=== PATIENT | female | born 1945 | race Caucasian/White ===

== ENCOUNTER 2020-03-01 10:52 | Emergency (ER) | payer MEDICARE, OTHER, SELFPAY ==
--- NOTE | ~2020-03-01 | XR_ITS ---
XR chest 1V portable DATE: 03/01/2020 11:28 INDICATION: Mid chest pain TECHNIQUE: Portable AP chest on 03/01/2020 at 1129 hours COMPARISON: 03/04/2015 2 view chest FINDINGS: Normal heart size. No hilar or mediastinal enlargement. No pulmonary infiltrate or consol idation, pulmonary vascular congestion or pleural effusion or pneumothorax. Diffuse idiopathic skeletal hyperostosis. IMPRESSION: No active cardiopulmonary disease Reviewed, dictated and finalized at location [facility].
[2020-03-01 10:58] VITALS: BP 148/70; PULSE 62; RESP 20; TEMP 36.7; O2SAT 96
[2020-03-01 11:06] VITALS: PULSE 86
--- NOTE | 2020-03-01 11:15 | PC.NURSE ---
Introduced to patient and bedside report received from off-going RN.
[2020-03-01 11:17] LABS: Basophils Percent Auto 0.6 % (0.2-1.2); Eosinophils Percent Auto 0.3 % (0-4.4); Hematocrit 40.8 % (37.0-47.0); Hemoglobin 13.6 g/dL (12.0-15.0); Immature Granulocyte Absolute 0.01 K/mm3 (0.00-0.031); Immature Granulocyte Percent A 0.3 % (0-0.5); Lymphocytes Absolute Auto 1.33 K/mm3 (0.9-3.2); Mean Corpuscular HGB Conc 33.3 g/dl (32-36); Mean Corpuscular Hemoglobin 29.1 pg (26-34); Mean Corpuscular Volume 87.4 fl (80-100); Mean Platelet Volume 8.4 fl (7.4-10.4); Monocytes Absolute Auto 0.3 K/mm3 (0.1-0.6); Neutrophils Absolute Auto 1.9 K/mm3 (1.3-6.7); Neutrophils Percent Auto 52.8 % (45.5-73.1); Platelet Count Result 166 k/mm3 (150-375); Red Blood Count 4.67 M/mm3 (4.2-5.4); Red Cell Distribution Width 13.2 % (11.5-14.5); White Blood Count 3.5 K/mm3 (4.5-10.0)
--- NOTE | 2020-03-01 11:20 | ECG_ITS ---
Measurements Intervals [place] Rate: 63 P: 24 [place]: 140 QRS: -11 QRSD: 101 T: 52 QT: 412 QTc: 425 Interpretive Statements SINUS RHYTHM WITH MARKED SINUS ARRHYTHMIA BASELINE WANDER- I, AVR, AVL, AVF NORMAL ECG Electronically Signed On 03-01-2020 11:21:44 CDT by Eladio Gates D.O.
[2020-03-01 11:27] VITALS: BP 147/69; PULSE 64; RESP 20; O2SAT 98
[2020-03-01 11:31] LABS: Alanine Aminotransferase 24 U/L (4-35); Albumin Level 4.7 g/dL (3.5-5.1); Alkaline Phosphatase 100 U/L (38-126); Aspartate Amino Transferase 41 U/L (14-36); Bilirubin,Total 0.6 mg/dL (0.2-1.3); Blood Urea Nitrogen 13 mg/dL (7-17); Calcium 9.6 mg/dL (8.4-10.2); Carbon Dioxide 27 mmol/L (22-30); Chloride 104 mmol/L (98-107); Estimated CRCL calculation 64 ml/min; Estimated Glomerular Filt Rate > 60; Glucose 120 mg/dL (65-105); INR 1.1; Lipase 90 U/L (23-300); Partial Thromboplastin Time 29.7 SECONDS (22.3-36.8); Potassium 3.9 mmol/L (3.4-5.0); Prothrombin Time 13.5 Seconds (11.1-14.7); Sodium 139 mmol/L (137-145)
[2020-03-01 11:43] LABS: NT Pro B Type Natriuretic Pept 40 PG/ML (5-100); Troponin I < 0.012 ng/mL (0.000-0.034)
--- NOTE | 2020-03-01 11:53 | ED.CHESTPAIN ---
HPI - Chest Pain General Chief Complaint: Chest Pain Stated Complaint: CHEST/SHOULDER PAIN Time Seen by Provider: 03/01/20 11:00 Source: patient and family Mode of arrival: ambulatory Limitations: no limitations History of Present Illness HPI narrative: Patient is a 74-year-old female who presents to emergency department noting that she had a small twinge of chest pain yesterday evening lasted seconds and resolves was located to the left of the sternum patient denies similar occurrence in the past has not had anything pain landry today denies similar occurrence in the past or any cardiopulmonary disease. Patient denies URI symptoms or other complaints and on arrival is resting comfortably in the room in no distress Related Data Home Medications Medication Instructions Recorded Confirmed cholecalciferol (vitamin D3) 50 mcg PO DAILY 03/01/20 [Vitamin D3] metronidazole 1 TOPICAL BID 03/01/20 Allergies Allergy/AdvReac Type Severity Reaction Status Date / Time NSAIDS (Non-Steroidal Allergy Unknown STOMACH Verified 02/15/19 17:23 Anti-Inflamma UPSET FORMALDHYDE Allergy Mild Rash Uncoded 03/01/20 11:07 FIBERGLASS Allergy Unknown Rash Uncoded 03/01/20 11:07 Review of Systems Review of Systems: All systems reviewed & are unremarkable except as noted in HPI and below PMFSH Family History Family History (Updated 10/10/18 @ 11:15 by DOCTOR UNKNOWN) Mother Hypertension Acute myocardial infarction Father Family history of lung cancer Family history of emphysema Family history of malignant neoplasm of brain Sibling Family history of transient ischemic attacks Family history of cardiovascular disease Cerebrovascular accident Malignant neoplasm of prostate Family history of malignant neoplasm of urinary bladder Other Family history of atrial fibrillation Family history of chronic obstructive pulmonary disease Social History Social History Smoking status: Never smoker Second hand tobacco smoke exposure: No Alcohol intake: never Gender identity (if verbalized by the patient): Female Exam Narrative: Exam Narrative: GENERAL: Well-appearing, well-nourished, and in no acute distress. HEAD: Normocephalic, atraumatic. EYES: PERRLA and EOMI. ENT: Nares clear, no rhinorrhea or epistaxis. Mucous membranes moist. CHEST: Clear to auscultation. No respiratory distress. No wheezes rales or rhonchi HEART: Regular rate and rhythm. No murmur heard. Normal peripheral pulses. ABDOMEN: Soft, nontender, nondistended EXTREMITIES: Normal range of motion. No edema. SKIN: Warm, dry, no rash. NEURO: No focal deficits. Alert and oriented x3. Cranial nerves II through XII grossly intact PSYCH: Normal mood and affect. Course Course Emergency Course: Patient in the room in no distress aware of case findings treatment plan and diagnosis as well as discussion and recommendations of cardiology Consultations Consultation #1: Discussed case with cardiology who notes that if the patient has a second negative troponin that she can go home and they will follow with her in clinic and help plan follow-up for cardiology follow-up and is felt that the patient can be discharged safely Date: 03/01/20 Time: 15:17 Vital Signs Vital signs: Vital Signs Temperature 98.1 F 03/01/20 10:58 Pulse Rate 62 03/01/20 10:58 Respiratory Rate 20 03/01/20 10:58 Blood Pressure 148/70 H 03/01/20 10:58 Pulse Oximetry 96 03/01/20 10:58 Temperature 98.5 F 03/01/20 14:33 Pulse Rate 60 03/01/20 14:33 Respiratory Rate 12 03/01/20 14:33 Blood Pressure 117/68 03/01/20 14:33 Pulse Oximetry 99 03/01/20 14:33 MDM - Chest Pain MDM Narrative Medical decision making narrative: Paitents EKGs and labs are without significant high risk changes. Cardiac risk facotrs were reviewd. Patient is felt likely to be low risk for ACS and resonable for further risk stratific
[2020-03-01 11:58] LABS: Add Urine Microscopic? NO; Appearance Urine Clear (Clear); Bilirubin Urine Negative (Negative); Blood Urine Negative (Negative); Color Urine Straw (Yellow); Glucose Urine UA Negative (Negative); Ketones Urine Negative (Negative); Leukocyte Esterase Ur Negative LEU/UL (Negative); Nitrate Urine Negative (Negative); Protein Urine Negative (Negative); Specific Grav Ur 1.009 (1.001-1.035); Urobilinogen Urine Negative mg/dL (<2.0)
[2020-03-01 13:52] VITALS: BP 117/73; PULSE 63; RESP 15; O2SAT 99
[2020-03-01 14:33] VITALS: BP 117/68; PULSE 60; RESP 12; TEMP 36.9; O2SAT 99
--- NOTE | 2020-03-01 14:39 | PC.NURSE ---
Patient reports gastric ulcers and that she does not take NSAIDS or aspirin
[2020-03-01 14:45] LABS: Troponin I < 0.012 ng/mL (0.000-0.034)
[2020-03-01 15:31] VITALS: BP 124/72; PULSE 60; RESP 16; TEMP 36; O2SAT 98
== END 2020-03-01 15:32 | disposition home or self-care (01) ==
PROVIDERS: Emergency Medicine Emergency Medical Services; Emergency Provider Emergency Medicine; PCP Family Medicine
DX: R07.9 Chest pain, unspecified (principal)
CPT/HCPCS: 36415; 71045; 80053; 81003; 83690; 83880; 84484; 85025; 85610; 85730; 93005; 99284

== ENCOUNTER 2020-03-05 00:39 | Emergency (ER) | payer MEDICARE, OTHER, SELFPAY ==
[2020-03-05 00:46] VITALS: BP 166/60; PULSE 60; RESP 16; TEMP 36.2; O2SAT 100
--- NOTE | 2020-03-05 00:53 | ECG_ITS ---
Measurements Intervals [place] Rate: 54 P: 16 [place]: 156 QRS: -6 QRSD: 101 T: 22 QT: 407 QTc: 389 Interpretive Statements SINUS BRADYCARDIA WITH SINUS ARRHYTHMIA BASELINE ARTIFACT- V5 BORDERLINE ECG Electronically Signed On 03-05-2020 7:08:52 CDT by Eladio Gates D.O.
[2020-03-05] MEDS: KETOROLAC 30 MG/ML VIAL (*BKC) IV PUSH (01:42)
[2020-03-05 01:51] VITALS: BP 161/89; PULSE 55; RESP 19; O2SAT 97
--- NOTE | 2020-03-05 02:38 | ED.GENADULT ---
HPI - General Adult General Chief complaint: Weakness Stated complaint: left arm pain/shoulder,weak,nauseated Time Seen by Provider: 03/05/20 00:48 History of Present Illness HPI narrative: Patient is a 74-year-old female who presents the ER with left arm and neck pain. Symptoms began this evening. Cramping and aching in nature. Some radiation into the left proximal arm. No chest pain or dyspnea. Patient had similar symptoms earlier in the week and was evaluated and had 2- troponins and was discharged home. At that time she had had some fasciculations in her chest with some chest discomfort. Tonight she reports she is just having trouble getting comfortable going to sleep and felt weak so thought she would seek further evaluation. She is supposed to follow-up with her doctor and potentially get an outpatient stress test. Patient has been taking a baby aspirin. No known injury. Related Data Home Medications Medication Instructions Recorded Confirmed cholecalciferol (vitamin D3) 50 mcg PO DAILY 03/01/20 [Vitamin D3] metronidazole 1 TOPICAL BID 03/01/20 Allergies Allergy/AdvReac Type Severity Reaction Status Date / Time NSAIDS (Non-Steroidal Allergy Unknown STOMACH Verified 03/05/20 00:50 Anti-Inflamma UPSET FORMALDHYDE Allergy Mild Rash Uncoded 03/05/20 00:50 FIBERGLASS Allergy Unknown Rash Uncoded 03/05/20 00:50 Review of Systems Review of Systems: All systems reviewed & are unremarkable except as noted in HPI and below Constitutional: Constitutional: Denies chills, Reports fatigue and Denies fever(s) ENT: Denies nasal congestion and Denies sore throat Cardiovascular: Cardiovascular: Denies chest pain and Denies radiating jaw, neck or arm pain Respiratory: Respiratory: Denies cough, Denies dyspnea and Denies wheezing Gastrointestinal: Gastrointestinal: Denies abdominal pain, Denies nausea and Denies vomiting Musculoskeletal: Musculoskeletal: Reports back pain PMFSH Past Medical History Medical History (Updated 03/05/20 @ 02:48 by Remy Londono MD) Diverticulitis DVT (deep venous thrombosis) GERD (gastroesophageal reflux disease) Hypertension Obstructive sleep apnea Surgical History Surgical History (Updated 03/05/20 @ 02:43 by Remy Londono MD) H/O knee surgery History of back surgery History of tubal ligation Family History Family History (Updated 10/10/18 @ 11:15 by DOCTOR UNKNOWN) Mother Hypertension Acute myocardial infarction Father Family history of lung cancer Family history of emphysema Family history of malignant neoplasm of brain Sibling Family history of transient ischemic attacks Family history of cardiovascular disease Cerebrovascular accident Malignant neoplasm of prostate Family history of malignant neoplasm of urinary bladder Other Family history of atrial fibrillation Family history of chronic obstructive pulmonary disease Social History Social History Smoking status: Never smoker Second hand tobacco smoke exposure: No Alcohol intake: never Gender identity (if verbalized by the patient): Female Exam Narrative: Exam Narrative: GENERAL: Well-appearing, well-nourished, and in no acute distress. HEAD: Normocephalic, atraumatic. ENT: Mucous membranes moist. CHEST: Clear to auscultation. No respiratory distress. HEART: Bradycardic and regular. Normal peripheral pulses. EXTREMITIES: Normal range of motion. No edema. Back: Tender palpation over the paraspinal musculature of the neck going into the trapezius muscles as well as the rhomboid muscle on the left. No palpable spasm. No midline tenderness. NEURO: Alert and oriented x3. Course Course Emergency Course: Significantly tender on exam which reproduces the patient's reported pain. Toradol has improved this significantly. Discharge home recommend continue follow-up with PCP. No chest pain today and this does not
[2020-03-05 02:46] VITALS: BP 117/78; PULSE 52; RESP 19; O2SAT 100
[2020-03-05 02:54] VITALS: BP 117/78; PULSE 55; RESP 19; TEMP 37.2; O2SAT 100
== END 2020-03-05 02:56 | disposition home or self-care (01) ==
PROVIDERS: Emergency Provider Emergency Medicine; PCP Family Medicine
DX: S16.1XXA Strain of muscle, fascia and tendon at neck level, initial encounter (principal); Z86.718 Personal history of other venous thrombosis and embolism; K21.9 Gastro-esophageal reflux disease without esophagitis; G47.33 Obstructive sleep apnea (adult) (pediatric); R00.1 Bradycardia, unspecified; Z79.82 Long term (current) use of aspirin; X58.XXXA Exposure to other specified factors, initial encounter
CPT/HCPCS: 93005; 96374; 99284; J1885

== ENCOUNTER 2020-03-19 06:57 | Outpatient (CLI) | payer MEDICARE, OTHER, SELFPAY ==
[2020-03-19 07:47] LABS: Blood Urea Nitrogen 19 mg/dL (7-17); Calcium 9.4 mg/dL (8.4-10.2); Carbon Dioxide 29 mmol/L (22-30); Chloride 102 mmol/L (98-107); Estimated Glomerular Filt Rate > 60; Glucose 91 mg/dL (65-105); Sodium 138 mmol/L (137-145)
== END 2020-03-19 06:58 | disposition home or self-care (01) ==
PROVIDERS: PCP Family Medicine; Visit Provider Internal Medicine Cardiovascular Disease
DX: I49.9 Cardiac arrhythmia, unspecified (principal)
CPT/HCPCS: 36415; 80048

== ENCOUNTER 2020-03-27 06:54 | Outpatient (CLI) | payer MEDICARE, OTHER, SELFPAY ==
[2020-03-27 08:06] LABS: Cholesterol 155 mg/dL (0-200); HDL Direct 29 mg/dL; Triglycerides 185 mg/dL (<150)
[2020-03-27 08:12] LABS: LDL Cholesterol Direct 82 mg/dL
== END 2020-03-27 06:55 | disposition home or self-care (01) ==
PROVIDERS: PCP Family Medicine; Visit Provider Family Medicine
DX: E78.5 Hyperlipidemia, unspecified (principal)
CPT/HCPCS: 36415; 80061

== ENCOUNTER 2020-04-09 15:03 | Outpatient (CLI) | payer MEDICARE, OTHER, SELFPAY ==
--- NOTE | ~2020-04-09 | MM_ITS ---
EXAMINATION: MM screening [facility] BI w [facility]phra[facility] HISTORY: Screening mammogram TECHNIQUE: Craniocaudal and mediolateral oblique 3-D tomosynthesis images were obtained and synthetic 2-D images were generated. CAD analysis was submitted and interpreted. COMPARISON: 01/16/2019, 12/13/2017, 12/04/2016 BREAST PARENCHYMAL COMPOSITION: There are scattered areas of fibroglandular density. FINDINGS: Scattered benign-appearing calcifications are present. There is also stable asymmetry in th e posterior third of the right breast on the craniocaudal view. There is no evidence of suspicious ma ss, calcification, or architectural distortion to suggest malignancy in either breast. There has been no suspicious interval change. IMPRESSION: 1. No mammographic evidence of malignancy. 2. Recommend routine screening mammography in one year. BI-RADS Category 2: Benign finding(s). Reviewed, dictated and finalized at location A.
== END 2020-04-09 15:04 | disposition home or self-care (01) ==
LOC: ANHIMG 15:05
PROVIDERS: PCP Family Medicine; Visit Provider Nurse Practitioner Obstetrics & Gynecology
DX: Z12.31 Encounter for screening mammogram for malignant neoplasm of breast (principal)
CPT/HCPCS: 77063; 77067

== ENCOUNTER 2020-05-23 08:35 | Outpatient (CLI) | payer MEDICARE, OTHER, SELFPAY ==
--- NOTE | ~2020-05-23 | US_ITS ---
EXAMINATION: US right upper quadrant DATE: 05/23/2020 09:36 INDICATION: Epigastric pain TECHNIQUE: Multiple grayscale and Doppler ultrasound images of the abdomen were obtained. COMPARISON: 11/14/2010 FINDINGS: The pancreas is normal. The visualized proximal inferior vena cava is normal. Liver has normal echoge nicity and contour, with a smooth surface. No liver lesion identified. No intrahepatic biliary duct d ilation suspected. Portal venous flow was seen in the hepatopetal, normal direction and has normal Do ppler waveform. The gallbladder is normal in appearance. Small amount of mobile hypoechoic material w ith regions of shadowing suggesting combination of sludge and tiny gallstones. The common bile duct m easures 4 mm, which is normal. Sonographic Wilson sign was reported as negative by the web applications administrator. IMPRESSION: 1. Small amount of sludge and tiny gallstones within the otherwise normal-appearing gallbladder. No s onographic Wilson's sign to suggest acute cholecystitis or biliary ductal dilation. Reviewed, dictated and finalized at location A. IMPRESSION: 1. Small amount of sludge and tiny gallstones within the otherwise normal-appea ring gallbladder. No sonographic Wilson's sign to suggest acute cholecystitis o r biliary ductal dilation.
== END 2020-05-23 08:36 | disposition home or self-care (01) ==
PROVIDERS: PCP Family Medicine; Visit Provider Internal Medicine Gastroenterology
DX: K21.9 Gastro-esophageal reflux disease without esophagitis (principal); R10.13 Epigastric pain
CPT/HCPCS: 76705

== ENCOUNTER 2020-06-01 01:03 | Outpatient (CLI) | payer MEDICARE, OTHER, SELFPAY ==
[2020-06-01 18:13] LABS: SARS-CoV-2 RNA PCR Negative
== END 2020-06-01 01:04 | disposition home or self-care (01) ==
LOC: ANHCOVIDDT 01:04
PROVIDERS: PCP Family Medicine; Visit Provider Internal Medicine Gastroenterology
DX: Z01.812 Encounter for preprocedural laboratory examination (principal); Z20.828 Contact with and (suspected) exposure to other viral communicable diseases
CPT/HCPCS: 87635; C9803; U0003

== ENCOUNTER 2020-06-04 01:26 | Day surgery (SDC) | payer MEDICARE, OTHER, SELFPAY ==
[2020-05-22 15:17] VITALS: BMI 28.3
[2020-06-04 09:50] VITALS: BP 149/68; PULSE 57; RESP 18; TEMP 36.7; O2SAT 99
--- NOTE | 2020-06-04 09:59 | WPDANESEPPF ---
Anes - Initial Pre Proc Eval Procedure: Operation Date: 06/04/20 10:45 Proposed Procedures p Esophagogastroduodenoscopy - Pérez Carson MD Date/Time: 06/04/20 09:59 Surgeon: Pérez Carson MD Pre Op Diagnosis: GERD/ Epigastric Pain Patient Data Age: 74 Gender: F Height: 1.65 m Weight: 76.5 kg Last Vital Signs Temp 36.7 C 06/04/20 09:50 Pulse 57 L 06/04/20 09:50 Resp 18 06/04/20 09:50 BP 149/68 H 06/04/20 09:50 Pulse Ox 99 06/04/20 09:50 Allergies Allergy/AdvReac Type Severity Reaction Status Date / Time NSAIDS (Non-Steroidal Allergy Unknown STOMACH Verified 06/04/20 09:49 Anti-Inflamma UPSET FORMALDHYDE Allergy Mild Rash Uncoded 06/04/20 09:49 FIBERGLASS Allergy Unknown Rash Uncoded 06/04/20 09:49 Home Medications Medication Instructions Recorded Confirmed Type aspirin [Aspirin Low Dose] 81 mg PO DAILY #30 tablet 03/01/20 05/22/20 Rx cholecalciferol (vitamin D3) 1,000 unit PO DAILY 03/01/20 05/22/20 History [Vitamin D3] metronidazole 0.75 % topical cream 1 applic TOPICAL BID #45 gm 03/25/20 05/22/20 Rx rabeprazole 20 mg tablet,delayed 20 mg PO BID #180 tablet 03/25/20 05/22/20 Rx release cyclosporine 0.05 % eye drops in a 1 drop EACH EYE Q12H #180 each 04/03/20 05/22/20 Rx dropperette gemfibrozil 600 mg tablet 600 mg PO BID #180 tablet 04/03/20 05/22/20 Rx losartan 100 mg tablet 100 mg PO DAILY #90 tablet 04/03/20 05/22/20 Rx atorvastatin 10 mg PO DAILY 05/22/20 05/22/20 History Patient hx anesthesia problems: none Family hx anesthesia problems: none PMFSH Past Medical History Medical History (Updated 06/04/20 @ 10:02 by Leighton Nance MD) Colon, diverticulosis Diverticulitis DVT (deep venous thrombosis) Epigastric pain GERD (gastroesophageal reflux disease) Hypercholesterolemia Hypertension Obstructive sleep apnea CPAP 6 Overweight (BMI 25.0-29.9) Surgical History Surgical History (Updated 03/05/20 @ 02:43 by Remy Londono MD) H/O knee surgery History of back surgery History of tubal ligation Family History Family History (Updated 10/10/18 @ 11:15 by DOCTOR UNKNOWN) Mother Hypertension Acute myocardial infarction Father Family history of lung cancer Family history of emphysema Family history of malignant neoplasm of brain Sibling Family history of transient ischemic attacks Family history of cardiovascular disease Cerebrovascular accident Malignant neoplasm of prostate Family history of malignant neoplasm of urinary bladder Other Family history of atrial fibrillation Family history of chronic obstructive pulmonary disease Social History Social History Smoking status: Never smoker Second hand tobacco smoke exposure: No Alcohol intake: never Gender identity (if verbalized by the patient): Female Anes - Eval Final PreProcedure Day of Procedure 06/04/20 09:59 Patient weight: obese Heart: regular rate and rhythm Lungs: clear to auscultation and normal air movement Airway: Mallampati scale class II Neurological: alert and oriented Last oral intake: >/= 8 hours ASA classification: III Emergent: no Anesthetic plan: proceed Anesthesia type and monitoring: general GIVS Informed Consent: The patient's anesthetic plan and its attendant risks and benefits were discussed with the patient/family/POA. Questions were solicited and answers provided to the satisfaction of the patient/family/POA.
[2020-06-04] MEDS: LACTATED RINGERS 1,000 ML 150 ML IV CONT (10:04)
--- NOTE | 2020-06-04 10:49 | PM.HPGS ---
History of Present Illness History of Present Illness Consent: Risks, benefits, and alternatives have been discussed and questions answered. Patient agrees to proceed with procedure. Chief complaint: GERD/ Epigastric Pain Narrative: Melodie Zamora is a 74 year old female gerd better with aciphex bid Review of Systems Constitutional: Constitutional: Denies headache(s) and Denies weakness Eyes: Eyes: Denies blurry vision ENT: Reports Normal hearing present, Denies headache(s) and Denies neck pain Cardiovascular: Cardiovascular: Denies chest pain and Denies dyspnea Respiratory: Respiratory: Denies dyspnea Gastrointestinal: Gastrointestinal: Reports no additional gastrointestinal complaints Genitourinary: Genitourinary: Denies dysuria Musculoskeletal: Musculoskeletal: Denies neck pain Integumentary/Breasts: Skin/Breast: Denies dry skin Neurologic: Reports Normal hearing present, Denies headache(s) and Denies weakness Psychiatric: Psychiatric: Denies anxiety Endocrine: Endocrine: Denies change in body appearance Hematologic/Lymphatic: Hematologic/Lymphatic: Denies easy bleeding Allergic/Immunologic: Allergic/Immunologic: Denies urticaria PMFSH Past Medical History Medical History (Updated 06/04/20 @ 10:49 by Pérez Carson MD) Colon, diverticulosis Diverticulitis DVT (deep venous thrombosis) Epigastric pain GERD (gastroesophageal reflux disease) Hypercholesterolemia Hypertension Obstructive sleep apnea CPAP 6 Overweight (BMI 25.0-29.9) Surgical History Surgical History (Updated 03/05/20 @ 02:43 by Remy Londono MD) H/O knee surgery History of back surgery History of tubal ligation Family History Family History (Updated 10/10/18 @ 11:15 by DOCTOR UNKNOWN) Mother Hypertension Acute myocardial infarction Father Family history of lung cancer Family history of emphysema Family history of malignant neoplasm of brain Sibling Family history of transient ischemic attacks Family history of cardiovascular disease Cerebrovascular accident Malignant neoplasm of prostate Family history of malignant neoplasm of urinary bladder Other Family history of atrial fibrillation Family history of chronic obstructive pulmonary disease Social History Social History Smoking status: Never smoker Second hand tobacco smoke exposure: No Alcohol intake: never Gender identity (if verbalized by the patient): Female Meds Home Medications and Allergies Home Medications Medication Instructions Recorded Confirmed Type aspirin [Aspirin Low Dose] 81 mg PO DAILY #30 tablet 03/01/20 06/04/20 Rx cholecalciferol (vitamin D3) 1,000 unit PO DAILY 03/01/20 06/04/20 History [Vitamin D3] metronidazole 0.75 % topical cream 1 applic TOPICAL BID #45 gm 03/25/20 06/04/20 Rx rabeprazole 20 mg tablet,delayed 20 mg PO BID #180 tablet 03/25/20 06/04/20 Rx release cyclosporine 0.05 % eye drops in a 1 drop EACH EYE Q12H #180 each 04/03/20 06/04/20 Rx dropperette gemfibrozil 600 mg tablet 600 mg PO BID #180 tablet 04/03/20 06/04/20 Rx losartan 100 mg tablet 100 mg PO DAILY #90 tablet 04/03/20 06/04/20 Rx atorvastatin 10 mg PO DAILY 05/22/20 06/04/20 History Allergies Allergy/AdvReac Type Severity Reaction Status Date / Time NSAIDS (Non-Steroidal Allergy Unknown STOMACH Verified 06/04/20 09:49 Anti-Inflamma UPSET FORMALDHYDE Allergy Mild Rash Uncoded 06/04/20 09:49 FIBERGLASS Allergy Unknown Rash Uncoded 06/04/20 09:49 Vital Signs Vital Signs - 24 hr 06/04/20 09:50 Temperature 98.1 F Pulse Rate 57 L Respiratory Rate 18 Blood Pressure 149/68 H Pulse Oximetry 99 Exam Const: General: comfortable and no acute distress HENMT: General nose exam: Normal nares present Eyes: General: appearance normal, both eyes and all related structures Neck: Neck: no JVD Resp: Auscultation: clear to auscultation
[2020-06-04 11:13] VITALS: BP 125/77; PULSE 59; RESP 21; O2SAT 100
[2020-06-04 11:23] VITALS: BP 118/70; PULSE 55; RESP 14; O2SAT 99
[2020-06-04 11:33] VITALS: BP 128/73; PULSE 55; RESP 14; O2SAT 98
== END 2020-06-04 11:50 | disposition home or self-care (01) ==
PROVIDERS: PCP Family Medicine; Visit Provider Internal Medicine Gastroenterology
PROC: 0DJ08ZZ Inspection of Upper Intestinal Tract, Via Natural or Artificial Opening Endoscopic (ICD-10-PCS; CPT 43235; principal; 2020-06-04 10:45)
DX: K29.50 Unspecified chronic gastritis without bleeding (principal); K21.0 Gastro-esophageal reflux disease with esophagitis; I10 Essential (primary) hypertension; E78.5 Hyperlipidemia, unspecified; G47.33 Obstructive sleep apnea (adult) (pediatric); E66.3 Overweight; Z68.28 Body mass index [BMI] 28.0-28.9, adult; Z86.718 Personal history of other venous thrombosis and embolism; Z79.82 Long term (current) use of aspirin; Z79.899 Other long term (current) drug therapy
CPT/HCPCS: 43239; 88305; 88313; J2704; J7120

== ENCOUNTER 2020-07-22 10:25 | Emergency (ER) | payer MEDICARE, OTHER, SELFPAY ==
--- NOTE | ~2020-07-22 | US_ITS ---
US venous doppler LE RT DATE: 07/22/2020 11:08 INDICATION: Calf pain TECHNIQUE: Real-time and color flow imaging and Doppler analysis of the right leg COMPARISON: 10/06/2016 is duplex examination of the right leg FINDINGS: The greater saphenous vein is patent. There is spontaneous and phasic flow and normal augme ntation and color flow signal and normal compression of the deep veins of the right leg IMPRESSION: No evidence of deep venous thrombosis of right lower extremity Reviewed, dictated and finalized at [facility]. Reviewed, dictated and finalized at location A.
[2020-07-22 10:28] VITALS: BP 110/50; PULSE 66; RESP 16; TEMP 36.3; O2SAT 100
--- NOTE | 2020-07-22 11:14 | PC.NURSE ---
patient brought back to ED room 19 with c/o calf pain. see triage notes. no change in condition since triage completed. resting on stretcher. changed into gown. warm blanket given. call light in reach. had venous doppler done already.
--- NOTE | 2020-07-22 11:20 | ED.EXTPRO ---
HPI - Extremity Problem General Chief complaint: Extremity Problem,Nontraumatic Stated complaint: R calf pain Time Seen by Provider: 07/22/20 11:12 History of Present Illness HPI Narrative: Patient is a 74-year-old female who presents ER with a painful nodule to the posterior aspect of her right calf. Developed it yesterday. Tender to touch. No redness or fever. No chest pain or shortness of breath. No known trauma. Sent by PCP for DVT rule out due to previous history of blood clots. She is not on blood thinners. She does report she is recently returned to water aerobics in the last 2 weeks but does not remember injuring herself there. Related Data Home Medications Medication Instructions Recorded Confirmed cholecalciferol (vitamin D3) 1,000 unit PO DAILY 03/01/20 06/04/20 [Vitamin D3] atorvastatin 10 mg PO DAILY 05/22/20 06/04/20 Allergies Allergy/AdvReac Type Severity Reaction Status Date / Time NSAIDS (Non-Steroidal Allergy Unknown STOMACH Verified 06/04/20 09:49 Anti-Inflamma UPSET FORMALDHYDE Allergy Mild Rash Uncoded 06/04/20 09:49 FIBERGLASS Allergy Unknown Rash Uncoded 06/04/20 09:49 Review of Systems Constitutional: Constitutional: Denies chills, Denies fever(s) and Denies weakness Cardiovascular: Cardiovascular: Denies chest pain and Denies dyspnea Musculoskeletal: Comments: Right calf pain with tender nodule. No edema. [facility] Past Medical History Medical History (Updated 07/22/20 @ 11:25 by Remy Londono MD) Colon, diverticulosis Diverticulitis DVT (deep venous thrombosis) Epigastric pain GERD (gastroesophageal reflux disease) Hypercholesterolemia Hypertension Obstructive sleep apnea CPAP 6 Overweight (BMI 25.0-29.9) Surgical History Surgical History (Updated 03/05/20 @ 02:43 by Remy Londono MD) H/O knee surgery History of back surgery History of tubal ligation Family History Family History (Updated 10/10/18 @ 11:15 by DOCTOR UNKNOWN) Mother Hypertension Acute myocardial infarction Father Family history of lung cancer Family history of emphysema Family history of malignant neoplasm of brain Sibling Family history of transient ischemic attacks Family history of cardiovascular disease Cerebrovascular accident Malignant neoplasm of prostate Family history of malignant neoplasm of urinary bladder Other Family history of atrial fibrillation Family history of chronic obstructive pulmonary disease Social History Social History Smoking status: Never smoker Second hand tobacco smoke exposure: No Alcohol intake: never Gender identity (if verbalized by the patient): Female Exam Narrative: Exam Narrative: GENERAL: Well-appearing, well-nourished, and in no acute distress. HEAD: Normocephalic, atraumatic. EXTREMITIES: Normal range of motion. No edema. Tender nodule right posterior calf lateral aspect only slightly larger than a pea. Overlying bruising noted. SKIN: Warm, dry, no rash. Evidence of cellulitis. NEURO: Alert and oriented x3. PSYCH: Normal mood and affect. Course Course Emergency Course: Informed of results. Discharge home. Recommend heat and Tylenol as well as stretching. Vital Signs Vital signs: Vital Signs Temperature 97.4 F L 07/22/20 10:28 Pulse Rate 66 07/22/20 10:28 Respiratory Rate 16 07/22/20 10:28 Blood Pressure 110/50 L 07/22/20 10:28 Pulse Oximetry 100 07/22/20 10:28 Temperature 97.4 F L 07/22/20 10:28 Pulse Rate 66 07/22/20 10:28 Respiratory Rate 16 07/22/20 10:28 Blood Pressure 110/50 L 07/22/20 10:28 Pulse Oximetry 100 07/22/20 10:28 MDM - Extremity (Nontraumatic) Imaging Data Radiologist's impression: ITS Impressions Venous Doppler Study 07/22/20 11:09 IMPRESSION: No evidence of deep venous thrombosis of right lower extremity Discharge Plan Discharge Clinical Impression: Hematom
[2020-07-22 11:50] VITALS: BP 136/78; PULSE 78; O2SAT 100
--- NOTE | 2020-07-22 11:55 | PC.NURSE ---
patient resting on stretcher. in room. ready for discharge. understands results per MD.
== END 2020-07-22 11:52 | disposition home or self-care (01) ==
PROVIDERS: Emergency Provider Emergency Medicine; PCP Family Medicine
DX: S80.11XA Contusion of right lower leg, initial encounter (principal); Z86.718 Personal history of other venous thrombosis and embolism; K21.9 Gastro-esophageal reflux disease without esophagitis; E78.00 Pure hypercholesterolemia, unspecified; I10 Essential (primary) hypertension; G47.33 Obstructive sleep apnea (adult) (pediatric); E66.3 Overweight; Z68.28 Body mass index [BMI] 28.0-28.9, adult; X58.XXXA Exposure to other specified factors, initial encounter
CPT/HCPCS: 93971; 99284

== ENCOUNTER 2021-04-08 07:07 | Outpatient (CLI) | payer MEDICARE, OTHER, SELFPAY ==
[2021-04-08 08:01] LABS: Hematocrit 39.4 % (37.0-47.0); Mean Corpuscular Hemoglobin 28.7 pg (26-34); Mean Platelet Volume 8.5 fl (7.4-10.4); Platelet Count Result 143 k/mm3 (150-375); Red Blood Count 4.53 M/mm3 (4.2-5.4); Red Cell Distribution Width 13.4 % (11.5-14.5); White Blood Count 3.4 K/mm3 (4.5-10.0)
[2021-04-08 08:13] LABS: Alanine Aminotransferase 24 U/L (4-35); Albumin Level 4.5 g/dL (3.5-5.1); Alkaline Phosphatase 99 U/L (38-126); Anion Gap 8 mmol/L (8-16); Aspartate Amino Transferase 38 U/L (14-36); Bilirubin,Total 0.6 mg/dL (0.2-1.3); Blood Urea Nitrogen 13 mg/dL (7-17); Calcium 9.8 mg/dL (8.4-10.2); Carbon Dioxide 31 mmol/L (22-30); Chloride 103 mmol/L (98-107); Cholesterol 129 mg/dL (0-200); Estimated Glomerular Filt Rate > 60; Glucose 91 mg/dL (65-105); HDL Direct 35 mg/dL; Potassium 4.4 mmol/L (3.4-5.0); Sodium 142 mmol/L (137-145); Triglycerides 189 mg/dL (<150)
[2021-04-08 08:25] LABS: LDL Cholesterol Direct 56 mg/dL
[2021-04-08 09:20] LABS: Vitamin D 25 Hydroxy 47.8 ng/mL
== END 2021-04-08 07:08 | disposition home or self-care (01) ==
PROVIDERS: PCP Family Medicine; Visit Provider Family Medicine
DX: E78.2 Mixed hyperlipidemia (principal); E55.9 Vitamin D deficiency, unspecified; E78.00 Pure hypercholesterolemia, unspecified; R53.83 Other fatigue; I10 Essential (primary) hypertension
CPT/HCPCS: 36415; 80053; 80061; 82306; 84443; 85027

== ENCOUNTER → 2021-04-11 09:51 | Outpatient (CLI) | payer MEDICARE, OTHER, SELFPAY ==
--- NOTE | ~2021-04-11 | MM_ITS ---
EXAMINATION: MM screening [facility] BI w ephraim HISTORY: Screening mammogram TECHNIQUE: Craniocaudal and mediolateral oblique 3-D tomosynthesis images were obtained and synthetic 2-D images were generated. CAD analysis was submitted and interpreted. COMPARISON: 04/09/2020, 01/16/2019, 12/13/2017 BREAST PARENCHYMAL COMPOSITION: There are scattered areas of fibroglandular density. FINDINGS: Again noted is chronic, stable asymmetry in the posterior third of the right breast on the craniocaudal view. There is no evidence of suspicious mass, calcification, or architectural distortio n to suggest malignancy in either breast. There has been no suspicious interval change. IMPRESSION: 1. No mammographic evidence of malignancy. 2. Recommend routine screening mammography in one year. BI-RADS Category 2: Benign finding(s). Reviewed, dictated and finalized at location A.
== END ==
PROVIDERS: PCP Family Medicine; Visit Provider Family Medicine
DX: Z12.31 Encounter for screening mammogram for malignant neoplasm of breast (principal)
CPT/HCPCS: 77063; 77067

== ENCOUNTER 2021-06-23 13:50 | Outpatient (CLI) | payer MEDICARE, OTHER, SELFPAY ==
--- NOTE | ~2021-06-23 | US_ITS ---
US breast RT limited 06/23/2021 14:20 Indication: Status post recent fall. Palpable right breast abnormality. Procedure: High-resolution Limited right breast ultrasound Comparison: No prior studies for comparison. Findings: At 3:00, 6 cm from the nipple in the area of palpable concern there is an oval hyperechoic mass measuring 1.7 x 1.5 x 0.7 cm. No internal vascularity or posterior features. Parallel orientatio n. Impression: 1: Probable benign oval hyperechoic 1.7 cm right breast mass at 3:00, 6 cm from the nipple. Recommend correlation with diagnostic right mammogram. BI-RADS CATEGORY 0 - INCOMPLETE STUDY, NEED ADDITIONAL IMAGING EVALUATION. Reviewed, dictated and finalized at location A. Impression: 1: Probable benign oval hyperechoic 1.7 cm right breast mass at 3:00, 6 cm from the nipple. Recommend correlation with diagnostic right mammogram. BI-RADS CATEGORY 0 - INCOMPLETE STUDY, NEED ADDITIONAL IMAGING EVALUATION.
== END 2021-06-23 13:51 | disposition home or self-care (01) ==
LOC: ANHIMG 13:57
PROVIDERS: PCP Family Medicine; Visit Provider Physician Assistant
DX: N64.59 Other signs and symptoms in breast (principal); R92.8 Other abnormal and inconclusive findings on diagnostic imaging of breast
CPT/HCPCS: 76642

== ENCOUNTER 2021-07-09 11:51 | Outpatient (CLI) | payer MEDICARE, OTHER, SELFPAY ==
--- NOTE | ~2021-07-09 | MMUS_ITS ---
EXAMINATION: MM diagnostic [facility] RT w ephraim, US breast RT limited HISTORY: History of right breast bruising after trauma. TECHNIQUE: Additional 3-D tomosynthesis images of the right breast were performed and synthetic 2-D i mages were generated. CAD analysis was submitted and interpreted. High resolution Limited right breas t ultrasound was performed. COMPARISON: 04/11/2021 BREAST PARENCHYMAL COMPOSITION: Breast composed of scattered areas of fibroglandular density. FINDINGS: MAMMOGRAPHIC FINDINGS: There is subtle asymmetry in the upper outer quadrant of the right breast without discrete mass or ar chitectural distortion. There are benign right breast calcifications. ULTRASOUND: Limited left periareolar ultrasound: At 3:00, 6 cm from the nipple, there is an oval heterogeneous pr edominantly hyperechoic superficial mass which is slightly decreased in size compared with prior exam ination now measuring 1.6 x 1.3 x 1.4 cm compared with 1.7 x 1.5 x 0.7 cm on 06/23/2021, likely resolv ing hematoma. IMPRESSION: 1. Decreasing size of heterogeneous hyperechoic right breast mass at 3:00, 6 cm from the nipple. 2. Recommend 3 month follow-up right breast ultrasound BI-RADS category 3, probably benign findings. Reviewed, dictated and finalized at location A. IMPRESSION: 1. Decreasing size of heterogeneous hyperechoic right breast mass at 3:00, 6 cm from the nipple. 2. Recommend 3 month follow-up right breast ultrasound BI-RADS category 3, probably benign findings.
== END 2021-07-09 11:52 | disposition home or self-care (01) ==
LOC: ANHIMG 11:52
PROVIDERS: PCP Family Medicine; Visit Provider Physician Assistant
DX: R92.8 Other abnormal and inconclusive findings on diagnostic imaging of breast (principal)
CPT/HCPCS: 76642; 77061; 77065; G0279

== ENCOUNTER 2021-10-14 13:52 | Outpatient (CLI) | payer MEDICARE, OTHER, SELFPAY ==
--- NOTE | ~2021-10-14 | US_ITS ---
US breast RT limited 10/14/2021 14:20 Indication: Follow-up right breast masses Procedure: High-resolution Limited ultrasound of the right breast Comparison: 07/09/2021 Findings: At 3:00, 6 cm from the nipple, there is a 3 mm cyst. At 3:00, 6 cm from the nipple there is a second 2 mm cyst. No suspicious masses to suggest malignancy. Impression: 1: No sonographic evidence for malignancy in the right breast. Benign findings. Routine yearly screening mammogram and regular clinical breast examination are recommended. BI-RADS CATEGORY 2 - BENIGN FINDINGS Reviewed, dictated and finalized at location A. ET CODE EXPERT Impression: 1: No sonographic evidence for malignancy in the right breast. Benign findings. Routine yearly screening mammogram and regular clinical breast examination are recommended. BI-RADS CATEGORY 2 - BENIGN FINDINGS
== END 2021-10-14 13:53 | disposition home or self-care (01) ==
LOC: ANHIMG 13:54
PROVIDERS: PCP Family Medicine; Visit Provider Physician Assistant
DX: N60.01 Solitary cyst of right breast (principal)
CPT/HCPCS: 76642

== ENCOUNTER 2021-10-28 11:35 | Outpatient (CLI) | payer MEDICARE, OTHER, SELFPAY ==
[2021-10-28 12:58] LABS: Add Urine Microscopic? YES; Appearance Urine Clear (Clear); Bacteria Urine Trace /hpf; Bilirubin Urine Negative (Negative); Blood Urine 2+ (Negative); Color Urine Yellow (Yellow); Glucose Urine UA Negative (Negative); Ketones Urine Negative (Negative); Leukocyte Esterase Ur 1+ LEU/UL (Negative); Mucus Urine Rare /lpf; Nitrate Urine Negative (Negative); Protein Urine Negative (Negative); Squamous Epithelial Cell Urine Rare /hpf (Few); Urobilinogen Urine Negative mg/dL (<2.0); WBC Urine >75 /hpf
== END 2021-10-28 11:36 | disposition home or self-care (01) ==
LOC: ANHLAB 11:38
PROVIDERS: PCP Family Medicine; Visit Provider Nurse Practitioner Family
DX: R35.0 Frequency of micturition (principal)
CPT/HCPCS: 81001; 87077; 87086; 87186

== ENCOUNTER 2022-06-12 06:57 | Outpatient (CLI) | payer MEDICARE, OTHER, SELFPAY ==
[2022-06-12 07:48] LABS: Hematocrit 38.8 % (37.0-47.0); Hemoglobin 12.6 g/dL (12.0-15.0); Mean Corpuscular HGB Conc 32.5 g/dl (32-36); Mean Corpuscular Hemoglobin 29.2 pg (26-34); Mean Corpuscular Volume 89.8 fl (80-100); Mean Platelet Volume 8.5 fl (7.4-10.4); Platelet Count Result 141 k/mm3 (150-375); Red Blood Count 4.32 M/mm3 (4.2-5.4); Red Cell Distribution Width 13.3 % (11.5-14.5); White Blood Count 2.8 K/mm3 (4.5-10.0)
[2022-06-12 08:10] LABS: Alanine Aminotransferase 21 U/L (6-35); Albumin Level 4.5 g/dL (3.5-5.1); Alkaline Phosphatase 92 U/L (38-126); Anion Gap 11 mmol/L (8-16); Aspartate Amino Transferase 35 U/L (14-36); Bilirubin,Total 0.5 mg/dL (0.2-1.3); Blood Urea Nitrogen 15 mg/dL (7-17); Calcium 9.2 mg/dL (8.4-10.2); Carbon Dioxide 30 mmol/L (22-30); Chloride 101 mmol/L (98-107); Cholesterol 135 mg/dL (0-200); Estimated Glomerular Filt Rate > 60; Glucose 87 mg/dL (65-110); HDL Direct 33 mg/dL; Potassium 3.5 mmol/L (3.4-5.0); Sodium 142 mmol/L (137-145); Triglycerides 133 mg/dL (<150)
[2022-06-12 08:21] LABS: LDL Cholesterol Direct 64 mg/dL
== END 2022-06-12 06:58 | disposition home or self-care (01) ==
LOC: ANHLAB 07:00
PROVIDERS: PCP Family Medicine; Visit Provider Family Medicine
DX: E78.2 Mixed hyperlipidemia (principal); E78.00 Pure hypercholesterolemia, unspecified; R53.83 Other fatigue; I10 Essential (primary) hypertension
CPT/HCPCS: 36415; 80053; 80061; 85027

== ENCOUNTER 2022-06-15 13:05 | Outpatient (CLI) | payer MEDICARE, OTHER, SELFPAY ==
--- NOTE | ~2022-06-15 | US_ITS ---
EXAMINATION: US carotid duplex BI DATE: 06/15/2022 13:58 INDICATION: Vascular symptoms and signs. TECHNIQUE: Grayscale, color Doppler, and pulsed Doppler images of the cervical carotid arteries were obtained. The degree of vessel stenosis is placed in one of the following categories: normal, <50%, 5 0-69%, >=70% but less than near-occlusion, near-occlusion, or total occlusion. Note that percent sten osis relative to normal distal artery lumen diameter is indirectly measured from velocity measurement s as described by Jasen, et al. Radiology 2003; 229:340-346. Notes: Normal: Peak systolic velocity <125 centimeters/sec and no plaque <50%. Peak systolic velocity <125 ( EDV <40; ICA/CCA PSV ratio <2.0; used these factors only a tandem lesions or low cardiac output or co ntralateral disease) 50-69 %: PSV 125-230 (EDV 40-100; ratio 2-4) >= 70% but less than near occlusion: PSV greater than 230 (EDV > 100; ratio> 4.0) Near Occlusion: PSV that is variable; markedly narrowed lumen Occlusion: Absent flow on color/spectral Doppler and no lumen on blount scale. COMPARISON: None. FINDINGS: RIGHT: The right common carotid artery (CCA) peak systolic velocity (PSV) is 106 cm/s. The right internal ca rotid artery (ICA) PSV is 96 cm/s. The right ICA end-diastolic velocity (EDV) is 32 cm/s. The right I CA/CCA PSV ratio is 0.9. The external carotid artery (ECA) PSV is 90 cm/s. There is antegrade flow in the right vertebral artery. LEFT: The left CCA PSV is 80 cm/s. The left ICA PSV is 109 cm/s. The left ICA EDV is 43 cm/s. The left ICA/ CCA PSV ratio is 1.4. The ECA PSV is 96 cm/s. There is antegrade flow in the left vertebral artery. IMPRESSION: 1. Less than 50% stenosis in the right internal carotid artery by sonographic criteria. 2. Less than 50% stenosis in the left internal carotid artery by sonographic criteria. Reviewed, dictated and finalized at location A. IMPRESSION: 1. Less than 50% stenosis in the right internal carotid artery by sonographic gretchen dodd. 2. Less than 50% stenosis in the left internal carotid artery by sonographic estephania russ.
== END 2022-06-15 13:06 | disposition home or self-care (01) ==
PROVIDERS: PCP Family Medicine; Visit Provider Family Medicine
DX: I65.23 Occlusion and stenosis of bilateral carotid arteries (principal); R09.89 Other specified symptoms and signs involving the circulatory and respiratory systems
CPT/HCPCS: 93880

== ENCOUNTER 2022-06-17 06:56 | Outpatient (CLI) | payer MEDICARE, OTHER, SELFPAY ==
[2022-06-17 07:40] LABS: Basophils Percent Auto 0.3 % (0.2-1.2); Eosinophils Percent Auto 0.7 % (0-4.4); Hematocrit 39.8 % (37.0-47.0); Immature Granulocyte Absolute 0.01 K/mm3 (0.00-0.031); Immature Granulocyte Percent A 0.3 % (0-0.5); Lymphocytes Absolute Auto 1.22 K/mm3 (0.9-3.2); Lymphocytes Percent Auto 42.7 % (18.3-44.2); Mean Corpuscular HGB Conc 32.7 g/dl (32-36); Mean Corpuscular Hemoglobin 29.3 pg (26-34); Mean Corpuscular Volume 89.8 fl (80-100); Mean Platelet Volume 8.5 fl (7.4-10.4); Monocytes Absolute Auto 0.3 K/mm3 (0.1-0.6); Monocytes Percent Auto 9.1 % (2.6-8.5); Neutrophils Absolute Auto 1.3 K/mm3 (1.3-6.7); Neutrophils Percent Auto 46.9 % (45.5-73.1); Platelet Count Result 134 k/mm3 (150-375); Red Blood Count 4.43 M/mm3 (4.2-5.4); Red Cell Distribution Width 13.3 % (11.5-14.5); White Blood Count 2.9 K/mm3 (4.5-10.0)
== END 2022-06-17 06:57 | disposition home or self-care (01) ==
LOC: ANHLAB 06:57
PROVIDERS: PCP Family Medicine; Visit Provider Family Medicine
DX: D72.829 Elevated white blood cell count, unspecified (principal)
CPT/HCPCS: 36415; 85025

== ENCOUNTER → 2022-06-30 11:10 | Outpatient (CLI) | payer MEDICARE, OTHER, SELFPAY ==
--- NOTE | ~2022-06-30 | DEXA_ITS ---
Bone Density Report Name: PEE KRISHNAN Age: 76 Sex: Female Ethnicity: White Date of : 1945 Indication: postmenopausal; screening for osteoporosis; Referring Provider: KAI JARA Study: Bone densitometry was performed. Exam Date: June 30, 2022 Accession number: [id number] Bone Density: Region BMD T-score Z-score Classification AP Spine (L3, L4) 1.001 -0.9 1.7 Normal Femoral Neck (Left) 0.817 -0.3 1.8 Normal Total Hip (Left) 0.804 -1.1 0.7 Osteopenia Femoral Neck (Right) 0.809 -0.4 1.8 Normal Total Hip (Right) 0.827 -0.9 0.9 Normal Total Hip Mean 0.816 -1.0 0.8 Normal World Health Organization criteria for BMD impression classify patients as: Normal (T-score at or above -1.0), Osteopenia (T-score between -1.0 and -2.5), or Osteoporosis (T-score at or below -2.5). 10-year Fracture Risk(1): Major Osteoporotic Fracture 8.6% Hip Fracture 1.0% Reported Risk Factors: [place] (), Neck BMD=0.809, BMI=27.1 (1) FRAX(R) Version 3.08. Fracture probability calculated for an untreated patient. Fracture probability may be lower if the patient has received treatment. Previous Exams: Region Exam Age BMD T-score BMD Change BMD Change Date g/cm2 vs Baseline vs Previous AP Spine(L3, L4) 06/30/2022 76 1.001 -0.9 -0.153* -0.036* 01/16/2019 73 1.037 -0.6 -0.117* -0.109* 09/25/2014 69 1.145 0.4 -0.008 0.010 09/16/2011 65 1.135 0.3 -0.019 -0.021 08/23/2009 63 1.156 0.5 0.002 0.002 08/03/2008 62 1.154 0.5 Total Hip(Left) 06/30/2022 76 0.804 -1.1 -0.204* -0.059* 01/16/2019 73 0.863 -0.6 -0.145* -0.088* 09/25/2014 69 0.951 0.1 -0.058* -0.039* 09/16/2011 65 0.989 0.4 -0.019 -0.017 08/23/2009 63 1.006 0.5 -0.002 -0.002 08/03/2008 62 1.008 0.5 Total Hip(Right) 06/30/2022 76 0.827 -0.9 -0.193* -0.036* 01/16/2019 73 0.863 -0.6 -0.158* -0.083* 09/25/2014 69 0.946 0.0 -0.074* -0.034* 09/16/2011 65 0.980 0.3 -0.040* -0.019 08/23/2009 63 0.999 0.5 -0.021 -0.021 08/03/2008 62 1.021 0.6 *Denotes significance at 95% confidence level, LSC for AP Spine = 0.022 g/cm2, LSC for Total Hip = 0.027 g/cm2 Clinical Information Provided by Patient: Has used the
== END ==
PROVIDERS: PCP Family Medicine; Visit Provider Family Medicine
DX: Z78.0 Asymptomatic menopausal state (principal); M85.852 Other specified disorders of bone density and structure, left thigh
CPT/HCPCS: 77080

== ENCOUNTER 2022-07-03 01:54 | Emergency (ER) | payer MEDICARE, OTHER, SELFPAY ==
[2022-07-03 01:56] VITALS: BP 141/56; PULSE 55; RESP 18; TEMP 36.1; O2SAT 100
--- NOTE | 2022-07-03 02:29 | ED.GENADULT ---
HPI - General Adult General Chief complaint: Upper Respiratory Infection Stated complaint: sore throat Time Seen by Provider: 07/03/22 01:59 History of Present Illness HPI narrative: 76-year-old female present emerged department for evaluation of a sore throat that started yesterday. Patient is getting ready to go on a trip and she wanted to make sure that she did not have COVID. Patient is vaccinated and boosted against COVID. Related Data Home Medications Medication Instructions Recorded Confirmed cholecalciferol (vitamin D3) 50 1,000 unit PO DAILY 03/01/20 06/09/22 mcg (2,000 unit) capsule (Vitamin D3) aspirin 81 mg tablet,delayed 81 mg PO .every other day 10/28/21 06/09/22 release (Spring Low Dose Aspirin) Allergies Allergy/AdvReac Type Severity Reaction Status Date / Time NSAIDS (Non-Steroidal Allergy Unknown STOMACH Verified 06/09/22 09:04 Anti-Inflamma UPSET FORMALDHYDE Allergy Mild Rash Uncoded 06/09/22 09:04 FIBERGLASS Allergy Unknown Rash Uncoded 06/09/22 09:04 Review of Systems Review of Systems: CONSTITUTIONAL: Denies fever, chills, or sweats. EYES: Denies visual changes, redness, or discharge. ENT: Sore throat nasal congestion CARDIOVASCULAR: Denies chest pain, palpitations, or edema. RESPIRATORY: Denies cough or dyspnea. GASTROINTESTINAL: Denies abdominal pain, nausea, vomiting, or diarrhea. GENITOURINARY: Denies dysuria or hematuria. SKIN: Denies rash or itching. MUSCULOSKELETAL: Denies back pain, joint pain, or myalgia. NEUROLOGIC: Denies headache, numbness, or weakness. [facility] Past Medical History Medical History (Updated 07/03/22 @ 03:39 by Lacho Marie MD) Carpal tunnel syndrome Colon, diverticulosis Coronary artery disease Diverticulitis DVT (deep venous thrombosis) Epigastric pain GERD (gastroesophageal reflux disease) Hypercholesterolemia Hypertension Leukocytosis Leukopenia Muscle strain of left scapular region Obstructive sleep apnea CPAP 6 Overweight (BMI 25.0-29.9) Surgical History Surgical History H/O knee surgery (~2015) History of back surgery (1998) History of cardiac cath 2020 Bifurcation LAD History of carpal tunnel surgery of right wrist (~2001) History of hemorrhoidectomy (1994) History of tubal ligation (1985) Family History Family History Mother Hypertension Acute myocardial infarction Father Family history of lung cancer Family history of emphysema Family history of malignant neoplasm of brain Sibling Family history of transient ischemic attacks Family history of cardiovascular disease Cerebrovascular accident Malignant neoplasm of prostate Family history of malignant neoplasm of urinary bladder Other Family history of atrial fibrillation Family history of chronic obstructive pulmonary disease Social History Social History Smoking status: Never smoker Second hand tobacco smoke exposure: No Alcohol intake: never Substance use: never Substance use type: does not use Gender identity (if verbalized by the patient): Female Spiritual care concerns: No Agree to blood products: Yes Exam Narrative: APPEARANCE: Well appearing, no pain, no distress, well-nourished. HEAD: normocephalic, atraumatic. EYES: PERRLA/EOMI, conjunctivae clear. NOSE: Normal no drainage EARS:TMS clear with good light reflex. THROAT: Pharynx clear, no exudate. NECK: Supple. No adenopathy, no masses. RESPIRATORY: Airway patent, respirations nonlabored. Clear to auscultation bilaterally, no rales, rhonchi, wheezing. CARDIOVASCULAR: Regular rate and rhythm without murmurs rubs or gallops. ABDOMINAL: Soft, nontender, nondistended, normal bowel sounds MUSCULOSKELETAL: Moves all extremities. Strength/ROM intact, No edema, No calf tenderness. NEURO: Alert. Cranial nerves II
[2022-07-03 03:31] LABS: Influenza A QL RT-PCR Negative (Negative); Influenza B QL RT-PCR Negative (Negative); SARS-CoV-2 RNA PCR Positive
== END 2022-07-03 04:45 | disposition home or self-care (01) ==
PROVIDERS: Emergency Provider Emergency Medicine; PCP Family Medicine
DX: U07.1 COVID-19 (principal); I25.10 Atherosclerotic heart disease of native coronary artery without angina pectoris; K21.9 Gastro-esophageal reflux disease without esophagitis; E78.00 Pure hypercholesterolemia, unspecified; G47.33 Obstructive sleep apnea (adult) (pediatric); E66.3 Overweight; Z68.26 Body mass index [BMI] 26.0-26.9, adult; Z86.718 Personal history of other venous thrombosis and embolism; Z79.82 Long term (current) use of aspirin
CPT/HCPCS: 87081; 87502; 87880; 99283; C9803; U0003; U0005

== ENCOUNTER 2022-09-07 08:15 | Outpatient (CLI) | payer MEDICARE, OTHER, SELFPAY ==
--- NOTE | ~2022-09-07 | MM_ITS ---
EXAMINATION: MM screening [facility] BI w ephraim HISTORY: Screening TECHNIQUE: Craniocaudal and mediolateral oblique 3-D tomosynthesis images were obtained and synthetic 2-D images were generated. CAD analysis was submitted and interpreted. COMPARISON: Comparison to multiple prior studies sequentially, with oldest reviewed study dated 12/04. BREAST PARENCHYMAL COMPOSITION: There are scattered areas of fibroglandular density. FINDINGS: There is no evidence of suspicious mass, calcification, or architectural distortion to sugg est malignancy in either breast. There has been no suspicious interval change. IMPRESSION: 1. No mammographic evidence of malignancy. 2. Recommend routine screening mammography in one year. BI-RADS Category 1: Negative Reviewed, dictated and finalized at location B. ACKER
== END 2022-09-07 08:16 | disposition home or self-care (01) ==
PROVIDERS: PCP Family Medicine; Visit Provider Nurse Practitioner Obstetrics & Gynecology
DX: Z12.31 Encounter for screening mammogram for malignant neoplasm of breast (principal)
CPT/HCPCS: 77063; 77067

== ENCOUNTER 2022-10-05 14:12 | Outpatient (CLI) | payer MEDICARE, OTHER, SELFPAY ==
[2022-10-05 14:30] LABS: Basophils Percent Auto 0.2 % (0.2-1.2); Eosinophils Percent Auto 0.2 % (0-4.4); Hemoglobin 13.4 g/dL (12.0-15.0); Immature Granulocyte Absolute 0.01 K/mm3 (0.00-0.031); Immature Granulocyte Percent A 0.2 % (0-0.5); Lymphocytes Absolute Auto 1.07 K/mm3 (0.9-3.2); Lymphocytes Percent Auto 22.5 % (18.3-44.2); Mean Corpuscular HGB Conc 32.7 g/dl (32-36); Mean Corpuscular Hemoglobin 29.1 pg (26-34); Mean Corpuscular Volume 89.1 fl (80-100); Mean Platelet Volume 7.8 fl (7.4-10.4); Monocytes Absolute Auto 0.4 K/mm3 (0.1-0.6); Monocytes Percent Auto 7.4 % (2.6-8.5); Neutrophils Absolute Auto 3.3 K/mm3 (1.3-6.7); Neutrophils Percent Auto 69.5 % (45.5-73.1); Platelet Count Result 164 k/mm3 (150-375); Red Cell Distribution Width 13.3 % (11.5-14.5); White Blood Count 4.8 K/mm3 (4.5-10.0)
[2022-10-05 18:32] LABS: Iron 99 ug/dL (37-170)
[2022-10-05 18:37] LABS: Alanine Aminotransferase 22 U/L (6-35); Albumin Level 4.4 g/dL (3.5-5.1); Alkaline Phosphatase 116 U/L (38-126); Anion Gap 9 mmol/L (8-16); Aspartate Amino Transferase 29 U/L (14-36); Bilirubin,Total 0.6 mg/dL (0.2-1.3); Blood Urea Nitrogen 17 mg/dL (7-17); Calcium 9.1 mg/dL (8.4-10.2); Carbon Dioxide 28 mmol/L (22-30); Chloride 105 mmol/L (98-107); Estimated Glomerular Filt Rate > 60; Glucose 103 mg/dL (65-110); Lactate Dehydrogenase 160 U/L (120-246); Potassium 3.9 mmol/L (3.4-5.0); Sodium 142 mmol/L (137-145)
[2022-10-05 18:42] LABS: Percent Iron Saturation 21 % (20-50)
[2022-10-05 19:44] LABS: Folic Acid 10.7 ng/mL (2.76->20)
[2022-10-08 09:01] LABS: Methylmalonic Acid 284 nmol/L (87-318)
[2022-10-08 13:58] LABS: Anti Nuclear Antibody Titer 1:40 (Negative)
== END 2022-10-05 14:13 | disposition home or self-care (01) ==
LOC: ANHLAB 14:13
PROVIDERS: PCP Family Medicine; Visit Provider Internal Medicine Hematology & Oncology
DX: D69.59 Other secondary thrombocytopenia (principal)
CPT/HCPCS: 36415; 80053; 82607; 82728; 82746; 83540; 83550; 83615; 83921; 85025; 86038; 86039

== ENCOUNTER 2022-10-12 08:59 | Outpatient (CLI) | payer MEDICARE, OTHER, SELFPAY ==
--- NOTE | ~2022-10-12 | US_ITS ---
US abdomen complete EXAMINATION: US Abdomen Complete INDICATION: Secondary thrombocytopenia. PROCEDURE: Realtime High Resolution abdomen ultrasound. COMPARISON: No prior studies for comparison FINDINGS: There are gallstones. No gallbladder wall thickening or pericholecystic fluid. Common bile duct measures 2.5 mm. Liver echotexture is increased, consistent with fatty infiltration.. Pancreas within normal limits. Pancreatic tail is obscured by bowel gas. Spleen is unremarkeable. Renal echotexture is within norm al limits bilaterally without hydronephrosis, contour deforming mass or renal stone. Right kidney aurelio sures 10.2 cm. Left kidney measures 11.3 cm. Visualized aspects of the aorta and IVC are within normal limits. Portal vein is patent. No sonograph ic Wilson's sign indicated by the technologist. IMPRESSION: 1: Cholelithiasis. 2: Hepatic steatosis. Reviewed, dictated and finalized at location A. E/M ENGINEER
== END 2022-10-12 09:00 | disposition home or self-care (01) ==
PROVIDERS: PCP Family Medicine; Visit Provider Internal Medicine Hematology & Oncology
DX: D69.59 Other secondary thrombocytopenia (principal); K80.20 Calculus of gallbladder without cholecystitis without obstruction; K76.0 Fatty (change of) liver, not elsewhere classified
CPT/HCPCS: 76700

== ENCOUNTER 2022-12-14 08:04 | Outpatient (CLI) | payer MEDICARE, OTHER, SELFPAY ==
[2022-12-14 08:25] LABS: Basophils Percent Auto 0.7 % (0.2-1.2); Eosinophils Percent Auto 0.3 % (0-4.4); Hemoglobin 12.9 g/dL (12.0-15.0); Immature Granulocyte Absolute 0.01 K/mm3 (0.00-0.031); Immature Granulocyte Percent A 0.3 % (0-0.5); Lymphocytes Absolute Auto 1.09 K/mm3 (0.9-3.2); Lymphocytes Percent Auto 37.2 % (18.3-44.2); Mean Corpuscular HGB Conc 33.1 g/dl (32-36); Mean Corpuscular Hemoglobin 29.4 pg (26-34); Mean Corpuscular Volume 88.8 fl (80-100); Mean Platelet Volume 7.9 fl (7.4-10.4); Monocytes Absolute Auto 0.3 K/mm3 (0.1-0.6); Monocytes Percent Auto 9.2 % (2.6-8.5); Neutrophils Absolute Auto 1.5 K/mm3 (1.3-6.7); Neutrophils Percent Auto 52.3 % (45.5-73.1); Platelet Count Result 132 k/mm3 (150-375); Red Blood Count 4.39 M/mm3 (4.2-5.4); Red Cell Distribution Width 13.2 % (11.5-14.5); White Blood Count 2.9 K/mm3 (4.5-10.0)
[2022-12-14 09:07] LABS: Iron 89 ug/dL (37-170); Lactate Dehydrogenase 148 U/L (120-246)
[2022-12-14 09:19] LABS: Percent Iron Saturation 22 % (20-50)
[2022-12-14 09:28] LABS: Alanine Aminotransferase 19 U/L (6-35); Albumin Level 4.6 g/dL (3.5-5.1); Alkaline Phosphatase 99 U/L (38-126); Anion Gap 6 mmol/L (8-16); Aspartate Amino Transferase 27 U/L (14-36); Bilirubin,Total 0.6 mg/dL (0.2-1.3); Blood Urea Nitrogen 18 mg/dL (7-17); Calcium 9.6 mg/dL (8.4-10.2); Carbon Dioxide 30 mmol/L (22-30); Chloride 104 mmol/L (98-107); Cholesterol 136 mg/dL (0-200); Estimated Glomerular Filt Rate > 60; Glucose 94 mg/dL (65-110); HDL Direct 37 mg/dL; Potassium 4.3 mmol/L (3.4-5.0); Sodium 140 mmol/L (137-145); Triglycerides 173 mg/dL (<150)
[2022-12-14 09:42] LABS: LDL Cholesterol Direct 62 mg/dL
[2022-12-14 10:15] LABS: Folic Acid 13.2 ng/mL (2.76->20)
== END 2022-12-14 08:05 | disposition home or self-care (01) ==
LOC: ANHLAB 08:06
PROVIDERS: Internal Medicine Hematology & Oncology; PCP Family Medicine; Visit Provider Family Medicine
DX: E78.2 Mixed hyperlipidemia (principal); E78.00 Pure hypercholesterolemia, unspecified; I10 Essential (primary) hypertension; D69.59 Other secondary thrombocytopenia
CPT/HCPCS: 36415; 80053; 80061; 82607; 82728; 82746; 83540; 83550; 83615; 85025

== ENCOUNTER 2023-03-26 08:31 | Outpatient (CLI) | payer MEDICARE, OTHER, SELFPAY ==
[2023-03-26 08:52] LABS: Basophils Percent Auto 0.7 % (0.2-1.2); Hematocrit 41.1 % (37.0-47.0); Hemoglobin 13.5 g/dL (12.0-15.0); Immature Granulocyte Absolute 0.01 K/mm3 (0.00-0.031); Immature Granulocyte Percent A 0.3 % (0-0.5); Lymphocytes Absolute Auto 1.05 K/mm3 (0.9-3.2); Lymphocytes Percent Auto 34.8 % (18.3-44.2); Mean Corpuscular HGB Conc 32.8 g/dl (32-36); Mean Corpuscular Hemoglobin 29.2 pg (26-34); Mean Platelet Volume 8.3 fl (7.4-10.4); Monocytes Absolute Auto 0.3 K/mm3 (0.1-0.6); Monocytes Percent Auto 8.3 % (2.6-8.5); Neutrophils Absolute Auto 1.7 K/mm3 (1.3-6.7); Neutrophils Percent Auto 54.9 % (45.5-73.1); Platelet Count Result 167 k/mm3 (150-375); Red Blood Count 4.62 M/mm3 (4.2-5.4); Red Cell Distribution Width 13.4 % (11.5-14.5)
[2023-03-26 11:23] LABS: Anion Gap 4 mmol/L (8-16); Blood Urea Nitrogen 13 mg/dL (7-17); Calcium 9.5 mg/dL (8.4-10.2); Carbon Dioxide 33 mmol/L (22-30); Chloride 103 mmol/L (98-107); Estimated Glomerular Filt Rate > 60; Glucose 88 mg/dL (65-110); Potassium 4.2 mmol/L (3.4-5.0); Sodium 140 mmol/L (137-145)
[2023-03-26 11:24] LABS: Iron 89 ug/dL (37-170)
[2023-03-26 11:36] LABS: Percent Iron Saturation 20 % (20-50)
[2023-03-26 12:31] LABS: Folic Acid 16.3 ng/mL (2.76->20)
== END 2023-03-26 08:32 | disposition home or self-care (01) ==
LOC: ANHLAB 08:33
PROVIDERS: PCP Family Medicine; Visit Provider Internal Medicine Hematology & Oncology
DX: D69.59 Other secondary thrombocytopenia (principal)
CPT/HCPCS: 36415; 80048; 82607; 82728; 82746; 83540; 83550; 85025

== ENCOUNTER 2023-05-19 01:33 | Day surgery (SDC) | payer MEDICARE, OTHER, SELFPAY ==
[2023-05-07 13:52] VITALS: BMI 28.3
--- NOTE | 2023-05-18 14:09 | WPDANESEPPF ---
Anes - Initial Pre Proc Eval Procedure: Operation Date: 05/19/23 11:15 Proposed Procedures p Esophagogastroduodenoscopy - Pérez Carson MD Date/Time: 05/18/23 14:09 Surgeon: Pérez Carson MD Pre Op Diagnosis: Eructation Patient Data Age: 77 Gender: F Height: 1.63 m Weight: 75 kg Allergies Allergy/AdvReac Type Severity Reaction Status Date / Time NSAIDS (Non-Steroidal Allergy Unknown STOMACH Verified 05/19/23 10:19 Anti-Inflamma UPSET FORMALDHYDE Allergy Mild Rash Uncoded 05/19/23 10:19 FIBERGLASS Allergy Unknown Rash Uncoded 05/19/23 10:19 Home Medications Medication Instructions Recorded Confirmed Type cholecalciferol (vitamin D3) 50 1,000 unit PO DAILY 03/01/20 05/19/23 History mcg (2,000 unit) capsule (Vitamin D3) metronidazole 0.75 % topical cream 1 applic topical BID #45 grams 03/25/20 05/19/23 Rx aspirin 81 mg tablet,delayed 81 mg PO .every other day 10/28/21 05/19/23 History release (Spring Low Dose Aspirin) lutein 40 mg-zeaxanthin 1,600 mcg 40 cap PO DAILY 12/01/22 05/19/23 History capsule mecobalamin (vitamin B12) 1,000 1,000 mcg PO DAILY 12/01/22 05/19/23 History mcg lozenges rabeprazole 20 mg tablet,delayed See Rx Instructions .Route 12/21/22 05/19/23 Rx release .COMPLEX #180 tabs atorvastatin 10 mg tablet 10 mg PO DAILY #90 tabs 04/19/23 05/19/23 Rx cyclosporine 0.05 % eye drops in a 1 drp ophthalmic (eye) Q12H #180 ea 04/19/23 05/19/23 Rx dropperette (Restasis) losartan 100 mg tablet 100 mg PO DAILY #90 tabs 04/19/23 05/19/23 Rx gemfibrozil 600 mg tablet 600 mg PO BID #180 tabs 04/20/23 05/19/23 Rx Patient hx anesthesia problems: none Family hx anesthesia problems: none Results Review: All pre-operative results and documents have been reviewed as part of the pre-operative evaluation. [facility] Past Medical History Medical History (Updated 05/04/23 @ 13:54 by AMY Beaver) Belching Carpal tunnel syndrome Colon, diverticulosis Coronary artery disease Diverticulitis DVT (deep venous thrombosis) Epigastric pain GERD (gastroesophageal reflux disease) Hypercholesterolemia Hypertension Leukocytosis Leukopenia Muscle strain of left scapular region Obstructive sleep apnea CPAP 6 Overweight (BMI 25.0-29.9) Surgical History Surgical History H/O knee surgery (~2015) History of back surgery (1998) History of cardiac cath 2020 Bifurcation LAD History of carpal tunnel surgery of right wrist (~2001) History of hemorrhoidectomy (1994) History of tubal ligation (1985) Family History Family History Mother Hypertension Acute myocardial infarction Father Family history of lung cancer Family history of emphysema Family history of malignant neoplasm of brain Sibling Family history of transient ischemic attacks Family history of cardiovascular disease Cerebrovascular accident Malignant neoplasm of prostate Family history of malignant neoplasm of urinary bladder Other Family history of atrial fibrillation Family history of chronic obstructive pulmonary disease Social History Social History Smoking status: Never smoker Second hand tobacco smoke exposure: No Alcohol intake: never Substance use: never Substance use type: does not use Lack of Transportation: No Lack of Food: Never True Current Housing: I Have Housing Concerned About Future Housing: No Difficulty Paying Gas/Electric Bills: No Difficulty Paying for Meds: No Currently Unemployed: No Education: Trade/Vocational Certificate Difficulty w/ Childcare or Family Care: No Living arrangements: with family Occupation/Education: retired Gender identity (if verbalized by the patient): Female Sexual Orientation (if Verbalized by the Patient): Straight or Het
[2023-05-19 10:23] VITALS: BP 123/68; PULSE 54; RESP 16; TEMP 36.1; O2SAT 100; BMI 28.0
[2023-05-19] MEDS: LACTATED RINGERS 1,000 ML 150 ML IV CONT (10:34)
--- NOTE | 2023-05-19 11:15 | WPDHPUPDATE1 ---
History and Physical Update Update Date/Time: 05/19/23 11:15 History and Physical has been reviewed, including an updated exam of the patient. There are NO changes in the patient's condition. Risks, benefits, and alternatives have been discussed and questions answered. Patient agrees to proceed with procedure.
[2023-05-19 11:33] VITALS: BP 114/62; PULSE 57; RESP 22; O2SAT 99
[2023-05-19 11:43] VITALS: BP 125/65; PULSE 59; RESP 22; O2SAT 98
[2023-05-19 11:53] VITALS: BP 126/66; PULSE 58; RESP 17; O2SAT 98
== END 2023-05-19 12:08 | disposition home or self-care (01) ==
PROVIDERS: PCP Family Medicine; Visit Provider Internal Medicine Gastroenterology
PROC: 0DJ08ZZ Inspection of Upper Intestinal Tract, Via Natural or Artificial Opening Endoscopic (ICD-10-PCS; CPT 43235; principal; 2023-05-19 11:15)
DX: K21.9 Gastro-esophageal reflux disease without esophagitis (principal); R14.2 Eructation; I10 Essential (primary) hypertension; E78.00 Pure hypercholesterolemia, unspecified; G47.33 Obstructive sleep apnea (adult) (pediatric); I25.10 Atherosclerotic heart disease of native coronary artery without angina pectoris; Z86.718 Personal history of other venous thrombosis and embolism; Z79.82 Long term (current) use of aspirin
CPT/HCPCS: 43239; 88305; J2704; J7120

== ENCOUNTER 2023-06-18 07:30 | Outpatient (CLI) | payer MEDICARE, OTHER, SELFPAY ==
[2023-06-18 08:37] LABS: Alanine Aminotransferase 19 U/L (6-35); Albumin Level 4.3 g/dL (3.5-5.1); Alkaline Phosphatase 90 U/L (38-126); Anion Gap 7 mmol/L (8-16); Aspartate Amino Transferase 30 U/L (14-36); Bilirubin,Total 0.6 mg/dL (0.2-1.3); Blood Urea Nitrogen 17 mg/dL (7-17); Calcium 9.1 mg/dL (8.4-10.2); Carbon Dioxide 30 mmol/L (22-30); Chloride 103 mmol/L (98-107); Cholesterol 129 mg/dL (0-200); Estimated Glomerular Filt Rate > 60; Glucose 83 mg/dL (65-110); HDL Direct 35 mg/dL; Potassium 3.8 mmol/L (3.4-5.0); Sodium 140 mmol/L (137-145); Triglycerides 160 mg/dL (<150)
[2023-06-18 08:48] LABS: LDL Cholesterol Direct 60 mg/dL
[2023-06-18 09:29] LABS: Hepatitis C Virus Antibody Negative (Negative)
== END 2023-06-18 07:31 | disposition home or self-care (01) ==
PROVIDERS: PCP Family Medicine; Visit Provider Family Medicine
DX: Z00.00 Encounter for general adult medical examination without abnormal findings (principal); I10 Essential (primary) hypertension; E78.2 Mixed hyperlipidemia; Z11.59 Encounter for screening for other viral diseases
CPT/HCPCS: 36415; 80053; 80061; 86803

== ENCOUNTER 2023-09-30 13:31 | Outpatient (CLI) | payer MEDICARE, OTHER, SELFPAY ==
[2023-09-30 13:58] LABS: Basophils Percent Auto 0.2 % (0.2-1.2); Eosinophils Percent Auto 0.2 % (0-4.4); Hematocrit 40.4 % (37.0-47.0); Hemoglobin 13.3 g/dL (12.0-15.0); Immature Granulocyte Absolute 0.02 K/mm3 (0.00-0.031); Immature Granulocyte Percent A 0.4 % (0-0.5); Lymphocytes Percent Auto 27.7 % (18.3-44.2); Mean Corpuscular HGB Conc 32.9 g/dl (32-36); Mean Corpuscular Hemoglobin 28.9 pg (26-34); Mean Corpuscular Volume 87.6 fl (80-100); Mean Platelet Volume 7.9 fl (7.4-10.4); Monocytes Absolute Auto 0.4 K/mm3 (0.1-0.6); Monocytes Percent Auto 7.9 % (2.6-8.5); Neutrophils Percent Auto 63.6 % (45.5-73.1); Platelet Count Result 150 k/mm3 (150-375); Red Blood Count 4.61 M/mm3 (4.2-5.4); Red Cell Distribution Width 13.4 % (11.5-14.5); White Blood Count 4.7 K/mm3 (4.5-10.0)
[2023-09-30 21:20] LABS: Folic Acid 13.2 ng/mL (2.76->20); Iron 72 ug/dL (37-170)
[2023-09-30 21:31] LABS: Percent Iron Saturation 17 % (20-50)
== END 2023-09-30 13:32 | disposition home or self-care (01) ==
LOC: ANHLAB 13:34
PROVIDERS: PCP Family Medicine; Visit Provider Internal Medicine Hematology & Oncology
DX: D69.59 Other secondary thrombocytopenia (principal)
CPT/HCPCS: 36415; 82607; 82728; 82746; 83540; 83550; 85025

== ENCOUNTER 2024-01-04 07:32 | Outpatient (CLI) | payer MEDICARE, OTHER, SELFPAY ==
--- NOTE | ~2024-01-04 | MM_ITS ---
EXAMINATION: MM screening [facility] BI w ephraim HISTORY: Screening mammogram TECHNIQUE: Craniocaudal and mediolateral oblique 3-D tomosynthesis images were obtained and synthetic 2-D images were generated. CAD analysis was submitted and interpreted. COMPARISON: 09/07/2022 bilateral screening mammogram 10/14/2021 Limited right breast ultrasound 07/09/2021 diagnostic right mammogram and limited right breast ultrasound 06/23/2021 Limited right breast ultrasound 04/11/2021 bilateral screening mammogram BREAST PARENCHYMAL COMPOSITION: There are scattered areas of fibroglandular density. FINDINGS: There is no evidence of suspicious mass, calcification, or architectural distortion to sugg est malignancy in either breast. There has been no suspicious interval change. IMPRESSION: 1. No mammographic evidence of malignancy. 2. Recommend routine screening mammography in one year. BI-RADS Category 1: Negative Reviewed, dictated and finalized at location A.
== END 2024-01-04 07:33 | disposition home or self-care (01) ==
PROVIDERS: PCP Family Medicine; Visit Provider Family Medicine
DX: Z12.31 Encounter for screening mammogram for malignant neoplasm of breast (principal)
CPT/HCPCS: 77063; 77067

== ENCOUNTER 2024-01-11 07:00 | Outpatient (CLI) | payer MEDICARE, OTHER, SELFPAY ==
[2024-01-11 07:47] LABS: Alanine Aminotransferase 16 U/L (6-35); Albumin Level 4.5 g/dL (3.5-5.1); Alkaline Phosphatase 94 U/L (38-126); Anion Gap 6 mmol/L (4-12); Aspartate Amino Transferase 28 U/L (14-36); Bilirubin,Total 0.6 mg/dL (0.2-1.3); Blood Urea Nitrogen 19 mg/dL (7-17); Calcium 9.6 mg/dL (8.4-10.2); Carbon Dioxide 28 mmol/L (22-30); Chloride 107 mmol/L (98-107); Cholesterol 134 mg/dL (0-200); Estimated Glomerular Filt Rate > 60; Glucose 93 mg/dL (65-110); HDL Direct 37 mg/dL; Potassium 3.9 mmol/L (3.4-5.0); Sodium 141 mmol/L (137-145); Triglycerides 135 mg/dL (<150)
[2024-01-11 07:58] LABS: LDL Cholesterol Direct 71 mg/dL
== END 2024-01-11 07:01 | disposition home or self-care (01) ==
LOC: ANHLAB 07:04
PROVIDERS: PCP Family Medicine; Visit Provider Family Medicine
DX: E78.00 Pure hypercholesterolemia, unspecified (principal); E78.2 Mixed hyperlipidemia
CPT/HCPCS: 36415; 80053; 80061

== ENCOUNTER 2024-03-31 13:23 | Outpatient (CLI) | payer MEDICARE, OTHER, SELFPAY ==
--- NOTE | ~2024-03-31 | XR_ITS ---
3 VIEWS LUMBAR SPINE Ordering provider: Tiny Gonzalez MD History: . M54.30 - Sciatica, Pt states pain radiating to rt leg . Comparison: February 02, 2015 FINDINGS: VERTEBRAL BODIES:Osteopenia of the bones. No visible fracture or subluxation. Degenerative changes o f the spine. DISK SPACES: Narrowing of the disc L4-L5. Multilevel facet joint disease. Bilateral sacroiliacs. SOFT TISSUES: Normal. IMPRESSION: No acute osseous abnormality lumbar spine. No change from previous examination. Reviewed, dictated and finalized at location A.
== END 2024-03-31 13:24 | disposition home or self-care (01) ==
LOC: ANHIMG 13:35
PROVIDERS: PCP Family Medicine; Visit Provider Family Medicine
DX: M54.30 Sciatica, unspecified side (principal); M54.50 Low back pain, unspecified
CPT/HCPCS: 72110

== ENCOUNTER 2024-05-22 10:00 | Outpatient (RCR) | payer MEDICARE, OTHER, SELFPAY ==
--- NOTE | 2024-04-10 13:34 | OPREHPOC ---
Outpatient Therapy Plan of Care This is a Multidisciplinary Plan of Care that may contain components documented by all disciplines (PT, OT, and ST.) PT Problem 1 PT Problem #1 Knowledge Deficit PT Goal 1 Goal [place] with HEP Target Visit 4 PT Problem 2 PT Problem #2 Impaired Range of Motion PT Goal 1 Goal Demonstrate john HS mobilization less than -20 degrees to reduce soft tissue restriction and nerve tension Target Visit 8 PT Goal 2 Goal Improve john hip abduction ROM to 40 degrees john to reduce hip capsule restriction to functional motion Target Visit 8 PT Problem 3 PT Problem #3 Impaired Strength PT Goal 1 Goal Improve john hip flexion to 4+/5 to improve stability and functional foot progression Target Visit 8 PT Goal 2 Goal Improve john hip abduction to 4/5 to improve lateral stability during gait and transfers Target Visit 8 PT Problem 4 PT Problem #4 Impaired Gait PT Goal 1 Goal Patient will ambulate for 600' with no increased back pain Target Visit 8 PT Problem 5 PT Problem #5 Impaired Functional Mobil PT Goal 1 Goal Reports 16 point improvement in Oswestry indicating reduced back pain with ADLs Target Visit 8
--- NOTE | 2024-04-10 13:34 | PTOPEVAL1 ---
Assessment and note entered by Pavel Esqueda, PT Evaluation Information Assessment Status Evaluation Diagnosis Sciatica, unspecified side ICD-10 Condition Codes (PT) Pain in low back M54.50,M54.16 Onset February 2024 Subjective Information Reports that she has been having a lot of trouble with knee pain, mostly on her left at this point. Pain is also in the back. She has been doing a lot of walking because sitting hurts. She has had most of her pain in her right thigh right now. Things feel raw. She is unable to take NSAIDs due to history of ulcers. She has tried heating pad and Tylenol but the don't really help. She was given exercises from physician and has been ding those faithfully but doesn't feel they are helping . She has occasionally had pain into calf and top of foot. Reported Pain Level Pain Score 7: Self Report Assessment PT Clinical Summary Patient presents with signs and symptoms consistent with R sided sciatica relieved with spinal decompression. Patient demonstrates significant weakness of core and hips. Will benefit from skilled therapy to address hip strength and mobilization for reduced lumbar stress and neurological tension. Plan of Care Interventions Gait Training,Hot Pack/Cold Pack,Manual Therapy, Mechanical Traction,Neuro Re-education,Therapeutic Activities,Therapeutic Exercise PT Services Indicated Yes Treatment Frequency and 2x/week for 8 visits Duration These treatments will address the objective and functional deficits as defined above. The patient will be advanced safely and appropriately in order for the patient to progress towards his/her prior level of function. Additional exercises will be introduced and as well as a comprehensive home exercise program upon discharge, if needed, ?to ensure carryover of functional gains achieved in the clinic. This treatment plan has been reviewed and agreement upon by the patient.
--- NOTE | 2024-05-22 10:54 | OPREHPOC ---
Outpatient Therapy Plan of Care This is a Multidisciplinary Plan of Care that may contain components documented by all disciplines (PT, OT, and ST.) PT Problem 1 PT Problem #1 Knowledge Deficit PT Goal 1 Goal / Goal Update [place] with HEP Target Visit 4 Progress Met PT Problem 2 PT Problem #2 Impaired Range of Motion PT Goal 1 Goal / Goal Update Demonstrate john HS mobilization less than -20 degrees to reduce soft tissue restriction and nerve tension Target Visit 8 Progress Met PT Goal 2 Goal / Goal Update Improve john hip abduction ROM to 40 degrees john to reduce hip capsule restriction to functional motion Target Visit 8 Progress Partially Met PT Problem 3 PT Problem #3 Impaired Strength PT Goal 1 Goal / Goal Update Improve john hip flexion to 4+/5 to improve stability and functional foot progression Target Visit 8 Progress Met PT Goal 2 Goal / Goal Update Improve john hip abduction to 4/5 to improve lateral stability during gait and transfers Target Visit 8 Progress Met PT Problem 4 PT Problem #4 Impaired Gait PT Goal 1 Goal / Goal Update Patient will ambulate for 600' with no increased back pain Target Visit 8 Progress Met PT Problem 5 PT Problem #5 Impaired Functional Mobil PT Goal 1 Goal / Goal Update Reports 16 point improvement in Oswestry indicating reduced back pain with ADLs Target Visit 8 Progress Met
--- NOTE | 2024-05-22 10:54 | PTOPDC ---
Assessment and note entered by Pavel Esqueda, PT Evaluation Information Assessment Status Discharge Diagnosis Sciatica, unspecified side ICD-10 Condition Codes (PT) Pain in low back M54.50,M54.16 Onset February 2024 Subjective Information Reports that overall she is doing remarkably better. Pain is reduced and she is walking more evenly. She has been floating around a 1 after her exercises. She has been doing water aerobics and sydnie chi. Reported Pain Level Pain Score 1: Self Report Assessment PT Clinical Summary Patient met all goals for therapy and is suitable for discharge to [facility] at this time. Patient is compliant with HEP and consistent with independent exercise. No concerns at this time. Plan of Care PT Services Indicated D/C to HEP
== END 2024-05-22 12:12 | disposition home or self-care (01) ==
LOC: ANHPT 10:00
PROVIDERS: PCP Family Medicine; Visit Provider Family Medicine
DX: M54.30 Sciatica, unspecified side (principal)
CPT/HCPCS: 97014; 97110; 97140; 97161; 97530; G0283

== ENCOUNTER 2024-07-01 07:44 | Outpatient (CLI) | payer MEDICARE, OTHER, SELFPAY ==
[2024-07-01 08:30] LABS: Alanine Aminotransferase 18 U/L (6-35); Albumin Level 4.4 g/dL (3.5-5.1); Alkaline Phosphatase 87 U/L (38-126); Anion Gap 9 mmol/L (4-12); Aspartate Amino Transferase 33 U/L (14-36); Bilirubin,Total 0.6 mg/dL (0.2-1.3); Blood Urea Nitrogen 20 mg/dL (7-17); Calcium 9.2 mg/dL (8.4-10.2); Carbon Dioxide 29 mmol/L (22-30); Chloride 101 mmol/L (98-107); Cholesterol 133 mg/dL (0-200); Estimated Glomerular Filt Rate > 60; Glucose 87 mg/dL (65-110); HDL Direct 34 mg/dL; Potassium 4.1 mmol/L (3.4-5.0); Sodium 139 mmol/L (137-145); Triglycerides 146 mg/dL (<150)
[2024-07-01 08:35] LABS: Iron 103 ug/dL (37-170)
[2024-07-01 08:43] LABS: Basophils Percent Auto 0.7 % (0.2-1.2); Hematocrit 39.6 % (37.0-47.0); Hemoglobin 12.7 g/dL (12.0-15.0); Immature Granulocyte Absolute 0.01 K/mm3 (0.00-0.031); Immature Granulocyte Percent A 0.3 % (0-0.5); LDL Cholesterol Direct 58 mg/dL; Lymphocytes Absolute Auto 1.25 K/mm3 (0.9-3.2); Lymphocytes Percent Auto 41.7 % (18.3-44.2); Mean Corpuscular HGB Conc 32.1 g/dl (32-36); Mean Corpuscular Hemoglobin 28.3 pg (26-34); Mean Corpuscular Volume 88.2 fl (80-100); Mean Platelet Volume 8.5 fl (7.4-10.4); Monocytes Absolute Auto 0.3 K/mm3 (0.1-0.6); Monocytes Percent Auto 9.3 % (2.6-8.5); Neutrophils Absolute Auto 1.4 K/mm3 (1.3-6.7); Platelet Count Result 160 k/mm3 (150-375); Red Blood Count 4.49 M/mm3 (4.2-5.4); Red Cell Distribution Width 13.5 % (11.5-14.5)
[2024-07-01 08:45] LABS: Percent Iron Saturation 22 % (20-50)
[2024-07-01 09:36] LABS: Folic Acid 11.1 ng/mL (2.76->20)
== END 2024-07-01 07:45 | disposition home or self-care (01) ==
PROVIDERS: PCP Family Medicine; Visit Provider Family Medicine
DX: E53.8 Deficiency of other specified B group vitamins (principal); E78.2 Mixed hyperlipidemia; E61.1 Iron deficiency; D64.9 Anemia, unspecified
CPT/HCPCS: 36415; 80053; 80061; 82607; 82728; 82746; 83540; 83550; 85025

== ENCOUNTER 2024-07-27 00:49 | Day surgery (SDC) | payer MEDICARE, OTHER, SELFPAY ==
[2024-07-24 14:24] VITALS: BMI 27.1
[2024-07-27 07:23] VITALS: BP 136/65; PULSE 63; RESP 18; TEMP 36.2; O2SAT 100
[2024-07-27] MEDS: LACTATED RINGERS 1,000 ML 150 ML IV CONT (07:31)
--- NOTE | 2024-07-27 08:29 | WPDANESEPPF ---
Anes - Initial Pre Proc Eval Procedure: Operation Date: 07/27/24 08:30 Proposed Procedures p Colonoscopy - Ken Lopez MD Date/Time: 07/27/24 08:29 Surgeon: Ken Lopez MD Pre Op Diagnosis: fec. abnormalities Patient Data Age: 78 Gender: F Height: 1.65 m Weight: 72.6 kg Last Vital Signs Temp 36.2 C L 07/27/24 07:23 Pulse 63 07/27/24 07:23 Resp 18 07/27/24 07:23 BP 136/65 07/27/24 07:23 Pulse Ox 100 07/27/24 07:23 O2 Del Method Room Air 07/27/24 07:23 Allergies Allergy/AdvReac Type Severity Reaction Status Date / Time formaldehyde Allergy Unknown Rash Verified 07/27/24 07:22 NSAIDS (Non-Steroidal Allergy Unknown STOMACH Verified 07/27/24 07:22 Anti-Inflamma UPSET FIBERGLASS Allergy Unknown Rash Uncoded 07/24/24 14:09 Home Medications Medication Instructions Recorded Confirmed Type cholecalciferol (vitamin D3) 50 1,000 unit PO DAILY 03/01/20 07/27/24 History mcg (2,000 unit) capsule (Vitamin D3) metronidazole 0.75 % topical cream 1 applic topical BID #45 grams 03/25/20 07/27/24 Rx aspirin 81 mg tablet,delayed 81 mg PO .every other day 10/28/21 07/27/24 History release (Spring Low Dose Aspirin) lutein 40 mg-zeaxanthin 1,600 mcg 40 cap PO DAILY 12/01/22 07/27/24 History capsule mecobalamin (vitamin B12) 1,000 1,000 mcg PO DAILY 12/01/22 07/27/24 History mcg lozenges atorvastatin 10 mg tablet 10 mg PO DAILY #90 tabs 06/12/24 07/27/24 Rx gemfibrozil 600 mg tablet 600 mg PO BID #180 tabs 06/12/24 07/27/24 Rx losartan 100 mg tablet 100 mg PO DAILY #90 tabs 06/12/24 07/27/24 Rx rabeprazole 20 mg tablet,delayed See Rx Instructions .Route 06/12/24 07/27/24 Rx release .COMPLEX #180 tabs cyclosporine 0.05 % eye drops in a 1 drp ophthalmic (eye) Q12H #180 ea 06/21/24 07/27/24 Rx dropperette (Restasis) Patient hx anesthesia problems: none Family hx anesthesia problems: none Results Review: All pre-operative results and documents have been reviewed as part of the pre-operative evaluation. [facility] Past Medical History Medical History Belching Bowel habit changes Carpal tunnel syndrome Colon, diverticulosis Coronary artery disease Diverticulitis DVT (deep venous thrombosis) Epigastric pain GERD (gastroesophageal reflux disease) Hypercholesterolemia Hypertension Leukocytosis Leukopenia Muscle strain of left scapular region Obstructive sleep apnea CPAP 6 Overweight (BMI 25.0-29.9) Positive colorectal cancer screening using Cologuard test Surgical History Surgical History H/O knee surgery (~2015) History of back surgery (1998) History of cardiac cath 2020 Bifurcation LAD History of carpal tunnel surgery of right wrist (~2001) History of hemorrhoidectomy (1994) History of tubal ligation (1985) Family History Family History Mother Hypertension Acute myocardial infarction Father Family history of lung cancer Family history of emphysema Family history of malignant neoplasm of brain Sibling Family history of transient ischemic attacks Family history of cardiovascular disease Cerebrovascular accident Malignant neoplasm of prostate Family history of malignant neoplasm of urinary bladder Other Family history of atrial fibrillation Family history of chronic obstructive pulmonary disease Social History Social History Smoking status: Never smoker Second hand tobacco smoke exposure: No Alcohol intake: never Substance use: never Substance use type: does not use Lack of Transportation: No Lack of Food: Never True Current Housing: I Have Housing Concerned About Future Housing: No Difficulty Paying Gas/Electric Bills: No Difficulty Paying for Meds: No Currently Unemployed: No Education: Trade/Vocational Certificate Difficulty w/ Childcare or Family Care: No Living arrangements: with family Occupation/Education: retired Gender identity (if verbalized by the patient): Female Sexual Orientation (if Verbalized by the Patient): Straight or Heterosexual Spiritual care concerns: No Agree to blood products: Yes Anes - Eval Final PreProcedure Day of Procedure 07/27/24 08:29 Patient weight: overweight Heart: regular rate and rhythm Lungs: clear to auscultation Airway: Mallampati scale class III Neurological: alert and oriented Last oral intake: >/= 8 hours ASA classification: III Emergent: no Anesthetic plan: proceed Anesthesia type and monitoring: general GIVS and standard monitoring Results Review: All pre-operative results and documents have been reviewed as part of the pre-operative evaluation. Informed Consent: The patient's anesthetic plan and its attendant risks and benefits were discussed with the patient/family/POA. Questions were solicited and answers provided to the satisfaction of the patient/family/POA.
--- NOTE | 2024-07-27 08:38 | PM.IMHP ---
H&P: HPI History of Present Illness Date/Time: 07/27/24 08:38 Chief Complaint: The patient has a history of colonic polyps. She is here for her surveillance colonoscopy. Last colonoscopy more than 5 years ago. Narrative: Review of Systems Review of Systems: All systems reviewed & are unremarkable except as noted in HPI and below PMFSH Past Medical History Medical History Belching Bowel habit changes Carpal tunnel syndrome Colon, diverticulosis Coronary artery disease Diverticulitis DVT (deep venous thrombosis) Epigastric pain GERD (gastroesophageal reflux disease) Hypercholesterolemia Hypertension Leukocytosis Leukopenia Muscle strain of left scapular region Obstructive sleep apnea CPAP 6 Overweight (BMI 25.0-29.9) Positive colorectal cancer screening using Cologuard test Surgical History Surgical History H/O knee surgery (~2015) History of back surgery (1998) History of cardiac cath 2020 Bifurcation LAD History of carpal tunnel surgery of right wrist (~2001) History of hemorrhoidectomy (1994) History of tubal ligation (1985) Family History Family History Mother Hypertension Acute myocardial infarction Father Family history of lung cancer Family history of emphysema Family history of malignant neoplasm of brain Sibling Family history of transient ischemic attacks Family history of cardiovascular disease Cerebrovascular accident Malignant neoplasm of prostate Family history of malignant neoplasm of urinary bladder Other Family history of atrial fibrillation Family history of chronic obstructive pulmonary disease Social History Social History Smoking status: Never smoker Second hand tobacco smoke exposure: No Alcohol intake: never Substance use: never Substance use type: does not use Lack of Transportation: No Lack of Food: Never True Current Housing: I Have Housing Concerned About Future Housing: No Difficulty Paying Gas/Electric Bills: No Difficulty Paying for Meds: No Currently Unemployed: No Education: Trade/Vocational Certificate Difficulty w/ Childcare or Family Care: No Living arrangements: with family Occupation/Education: retired Gender identity (if verbalized by the patient): Female Sexual Orientation (if Verbalized by the Patient): Straight or Heterosexual Spiritual care concerns: No Agree to blood products: Yes Meds Home Medications and Allergies Home Medications Medication Instructions Recorded Confirmed Type cholecalciferol (vitamin D3) 50 1,000 unit PO DAILY 03/01/20 07/27/24 History mcg (2,000 unit) capsule (Vitamin D3) metronidazole 0.75 % topical cream 1 applic topical BID #45 grams 03/25/20 07/27/24 Rx aspirin 81 mg tablet,delayed 81 mg PO .every other day 10/28/21 07/27/24 History release (Spring Low Dose Aspirin) lutein 40 mg-zeaxanthin 1,600 mcg 40 cap PO DAILY 12/01/22 07/27/24 History capsule mecobalamin (vitamin B12) 1,000 1,000 mcg PO DAILY 12/01/22 07/27/24 History mcg lozenges atorvastatin 10 mg tablet 10 mg PO DAILY #90 tabs 06/12/24 07/27/24 Rx gemfibrozil 600 mg tablet 600 mg PO BID #180 tabs 06/12/24 07/27/24 Rx losartan 100 mg tablet 100 mg PO DAILY #90 tabs 06/12/24 07/27/24 Rx rabeprazole 20 mg tablet,delayed See Rx Instructions .Route 06/12/24 07/27/24 Rx release .COMPLEX #180 tabs cyclosporine 0.05 % eye drops in a 1 drp ophthalmic (eye) Q12H #180 ea 06/21/24 07/27/24 Rx dropperette (Restasis) Allergies Allergy/AdvReac Type Severity Reaction Status Date / Time formaldehyde Allergy Unknown Rash Verified 07/27/24 07:22 NSAIDS (Non-Steroidal Allergy Unknown STOMACH Verified 07/27/24 07:22 Anti-Inflamma UPSET FIBERGLASS Allergy Unknown Rash Uncoded 07/24/24 14:09 Vital Signs Vital Signs - 24 hr 07/27/24 07:23 Temperature 97.2 F L Pulse Rate 63 Respiratory Rate 18 Blood Pressure 136/65 Pulse Oximetry 100 Oxygen Delivery Room Air Assessment and Plan Assessment and plan (1) History of colonic polyps: Code(s): Z86.0100 - Personal history of colon polyps, unspecified Status: Acute Plan The patient is deemed a good candidate for the procedure. Consent signed. Will proceed.
[2024-07-27 09:04] VITALS: BP 121/72; PULSE 66; RESP 19; O2SAT 100
[2024-07-27 09:14] VITALS: BP 124/68; PULSE 64; RESP 20; O2SAT 100
[2024-07-27 09:24] VITALS: BP 139/73; PULSE 65; RESP 18; O2SAT 100
== END 2024-07-27 09:40 | disposition home or self-care (01) ==
PROVIDERS: PCP Family Medicine; Referring Provider Internal Medicine Gastroenterology; Visit Provider Internal Medicine Gastroenterology
PROC: 0DJD8ZZ Inspection of Lower Intestinal Tract, Via Natural or Artificial Opening Endoscopic (ICD-10-PCS; CPT 45378; principal; 2024-07-27 08:30)
DX: Z12.11 Encounter for screening for malignant neoplasm of colon (principal); K57.30 Diverticulosis of large intestine without perforation or abscess without bleeding; I10 Essential (primary) hypertension; I25.10 Atherosclerotic heart disease of native coronary artery without angina pectoris; K21.9 Gastro-esophageal reflux disease without esophagitis; E78.00 Pure hypercholesterolemia, unspecified; G47.33 Obstructive sleep apnea (adult) (pediatric); Z79.82 Long term (current) use of aspirin; Z99.89 Dependence on other enabling machines and devices; Z98.890 Other specified postprocedural states; Z98.51 Tubal ligation status; Z98.1 Arthrodesis status; Z86.0100 Personal history of colon polyps, unspecified; Z86.718 Personal history of other venous thrombosis and embolism; Z86.79 Personal history of other diseases of the circulatory system; Z80.1 Family history of malignant neoplasm of trachea, bronchus and lung; Z80.8 Family history of malignant neoplasm of other organs or systems; Z80.42 Family history of malignant neoplasm of prostate; Z80.52 Family history of malignant neoplasm of bladder; Z82.49 Family history of ischemic heart disease and other diseases of the circulatory system
CPT/HCPCS: G0105; J2003; J2704; J7120

== ENCOUNTER 2024-08-30 15:43 | Outpatient (CLI) | payer MEDICARE, OTHER, SELFPAY ==
--- NOTE | ~2024-08-30 | US_ITS ---
EXAMINATION:US venous doppler LE LT INDICATION:Localized edema TECHNIQUE: Multiple grayscale, color flow and Doppler images of the left lower extremity deep venous systems were obtained and reviewed. COMPARISON:11/29/2011 FINDINGS: The common femoral, superficial femoral and popliteal veins demonstrate normal respiratory variation, augmentation and compressibility. Color flow is also seen within the posterior tibial, pe roneal, greater saphenous and profunda veins. IMPRESSION: 1: No lower extremity deep venous thrombosis. Reviewed, dictated and finalized at location B. ET CLERK
== END 2024-08-30 15:44 | disposition home or self-care (01) ==
PROVIDERS: PCP Family Medicine; Visit Provider Student in an Organized Health Care Education/Training Program
DX: R60.0 Localized edema (principal)
CPT/HCPCS: 93971

== ENCOUNTER 2024-09-01 08:20 | Outpatient (CLI) | payer MEDICARE, OTHER, SELFPAY ==
--- NOTE | ~2024-09-01 | XR_ITS ---
XR tibia fibula LT 2V Ordering provider: Benita Mason PA-C History: . M79.606 - Pain in leg, unspecified . Comparison: None. FINDINGS: BONES: Lucency in the lateral tibial plateau is seen. Fracture cannot be excluded. CT evaluation advi sed. JOINT SPACES: Narrowing of the medial and lateral compartment. Severe osteoarthritic changes of the p atellofemoral joint. SOFT TISSUES: Atherosclerotic changes. IMPRESSION: Possible fracture in the lateral tibial plateau. CT evaluation advised. Severe osteoarthritic changes of the knee and patellofemoral joint. Reviewed, dictated and finalized at location A. TENDER
== END 2024-09-01 08:21 | disposition home or self-care (01) ==
PROVIDERS: PCP Family Medicine; Visit Provider Student in an Organized Health Care Education/Training Program
DX: M17.12 Unilateral primary osteoarthritis, left knee (principal)
CPT/HCPCS: 73590

== ENCOUNTER 2024-09-07 13:06 | Outpatient (CLI) | payer MEDICARE, OTHER, SELFPAY ==
--- NOTE | ~2024-09-07 | CT_ITS ---
EXAMINATION: CT tibia/fibula LT wo con DATE: 09/07/2024 13:55 INDICATION: Unspecified fracture of shaft of left tibia. TECHNIQUE: Computed tomography (CT) of the left tibia and fibula was performed without intravenous co ntrast. Automated exposure control and iterative reconstruction technique were employed. The dose-dayana gth product was 396.62 mGy-cm. COMPARISON: Left tibia and fibula radiographs 09/19 FINDINGS: There is lateral subluxation of patella. No fracture. There is severe osteoarthritis of pat ellofemoral compartment, mild osteoarthritis of lateral compartment, and moderate osteoarthritis of m edial compartment. There is chondrocalcinosis of the menisci. No knee joint effusion. There is mild m idfoot osteoarthritis. There is heterotopic ossification distal to medial malleolus. IMPRESSION: 1. No fracture. 2. Severe left knee osteoarthritis. Reviewed, dictated and finalized at location A. Y FILTER TENDER
== END 2024-09-07 13:07 | disposition home or self-care (01) ==
LOC: MICIMG 13:07
PROVIDERS: PCP Family Medicine; Visit Provider Student in an Organized Health Care Education/Training Program
DX: M17.12 Unilateral primary osteoarthritis, left knee (principal); S82.202A Unspecified fracture of shaft of left tibia, initial encounter for closed fracture; X58.XXXA Exposure to other specified factors, initial encounter
CPT/HCPCS: 73700

== ENCOUNTER 2024-10-24 11:49 | Outpatient (CLI) | payer MEDICARE, OTHER, SELFPAY ==
--- OUTSIDE RECORDS SUMMARY | 2024-10-24 12:52 | XMS_ITS | Clinical Summary ---
Author Organization [facility] Address [address] [place] [address]. [place], [place] [address] [place] [address] Care Team Providers Care Spindle Setter Name Role Phone Tiny Gonzalez MD Primary Care Provider [phone] Allergies Active Allergy Reactions Criticality Noted Date Comments Caffeine Other (see comment),Rash Medium 02/02/2011 Increases heart rate. Formaldehyde Hives,Itching,Unknow n,Ra sh Medium 02/02/2011 Latex Rash,Unknown Medium 02/02/2011 bandaids and gloves Nsaids GI Upset 10/20/2024 Medications aspirin EC (ECOTRIN) 81 MG tablet Take 1 tablet every day by oral route in the morning. Active atorvastatin (LIPITOR) 10 MG tablet Take 1 tablet every day by oral route. Active cholecalcifero l (VITAMIN D-[address]) 25 mcg Tab tablet Take 1 tablet (1,000 Units total) by mouth daily. Active RESTASIS 0.05 % ophthalmic emulsion INSTILL 1 DROP INTO AFFECTED EYE(S) BY OPHTHALMIC ROUTE EVERY 12 HOURS Active gemfibrozil (LOPID) 600 MG tablet Take or use exactly as directed. 4 03/17/20 25 Active metroNIDAZOLE (METROCREAM) 0.75 % cream 4 Active RABEprazole EC (ACIPHEX) 20 MG tablet 4 Active losartan (COZAAR) 50 MG tablet Take 1 tablet (50 mg total) by mouth daily. 90 tablet 3 5 10/20/19 26 Active losartan (COZAAR) 100 MG tablet Be careful if taking OTCs.Take or use exactly as directed.Do not take if . 10/20/19 25 Discontinu ed(Reorder ) Encounters Date Type Department Care Team Description 10/20/2024 10:15 AM COLOR BUFFER Office Visit [facility] [address] Manny Webster MD Hypertension (Consult) 10/20/2024 Travel 08/17/2024 Abstract [facility], [address] [place] [address] Irish Gauthier CMA from Last 3 Months Family History Medical History Relation Comments Cancer Brother 1 COPD Brother 2 Cancer Brother 2 Cancer Father Heart Disease Mother Hypertension Mother Relation Status Comments Brother 1 Brother 2 Father Mother Social History Tobacco Use Types Packs/Day Years Used Date Smoking Tobacco: Never Tobacco Cessation:Counseling Given: Not Answered Alcohol Use Standard Drinks/Week Comments Never 0 (1 standard drink = 0.6 oz pur e alcohol) Comments Unknown Sex and Gender Information Value Date Recorded Sex Assigned at Not on file Legal Sex Female 5:55 PM CDT Gender Identity Not on file Sexual Orientation Not on file Last Filed Vital Signs Vital Sign Reading Time Taken Comments Blood Pressure 110/56 10/20/2024 10:22 AM COLOR BUFFER Pulse 58 10/20/2024 10:22 AM COLOR BUFFER Temperature - - Respiratory Rate - - Oxygen Saturation 97% 10/20/2024 10:22 AM COLOR BUFFER Inhaled Oxygen Concentration - - Weight 75.5 kg (166 lb 6.4 oz) 10/20/2024 10:22 AM COLOR BUFFER Height 165.1 cm (5' 5 ) 10/20/2024 10:22 AM COLOR BUFFER Body Mass Index 27.69 10/20/2024 10:22 AM COLOR BUFFER Plan of Treatment Upcoming Encounters Date Type Department Care Team (Late st Contact Info) Description 11/09/2025 10:00 AM COLOR BUFFER Office Visit [facility] [address] Manny Webster MD [facility] [address] [place] [address] Health Maintenance Due Date Last Done Comments Hepatitis C 1963 Annual Medicare Wellness Visit 2011 Dexa Scan (General) 2011 Zoster Vaccines (2 of 3) 12/04/2013 10/09/2013 DTaP, Tdap and Td Vaccines (3 - Td or Tdap) 08/04/2022 08/04/2012, 08/04/2012 Pneumococcal Vaccine: 65+ Years Completed 10/11/2015, 09/08/2012, 09/08/2011 RSV Immunization or 60+ Years Completed 08/31/2023 COVID-19 Vaccine Completed 07/14/2024, 04/2022, 08/06/2021, Additional history exists Influenza Adult Completed 09/08/2024, 06/27, 07/05/2019, Additional history exists Meningococcal B Vaccine Aged Out No l onger eligible based on patient's age to complete this topic Meningococcal Vaccine Aged Out No clif elaine eligible based on patient's age to complete this topic RSV Immunizations Under 20 Months Aged Out No longer eligible based on patient's age to complete this topic Procedures Procedure Name Priority Date/Time Associated Diagnosis Comments ELECTROCARDIOGRAM (NON MIDMARK ACQUIRED) Routine 10/20/2024 10:26 AM COLOR BUFFER CAD in inaja artery Procedure Note - 10/20/2024 10:26 AM CSTThis note is in progress. [address] [address] Test Date: 2024-10-20 Pat Name: PEE KRISHNAN Department: 177 Room: Gender: Female Waist Pleater: : 1945 Requested By: MANNY WEBSTER Order Number: [id number] Reading MD: MANNY WEBSTER Measurements Intervals [place] Rate: 59 P: 37 AL: 150 QRS: 5 QRSD: 94 T: 46 QT: 394 QTc: 392 Interpretive Statements SINUS BRADYCARDIA WITH MARKED SINUS ARRHYTHMIA from Last 3 Months Insurance MEDICARE [facility] [employer] Care Teams Spindle Setter Relationship Specialty Start Date End Date Tiny Gonzalez MD [address] [place] [address] PCP - General FAMILY PRACTICE 08/08/24
--- OUTSIDE RECORDS SUMMARY | 2024-10-24 12:52 | XMS_ITS | Clinical Summary ---
Author Organization [facility] Rob Chris Address [address] [place] [address] Care Team Providers Care Backend Python Developer Name Role Phone Tiny Gonzalez MD Primary Care Provider [phone] Allergies Active Allergy Reactions Criticality Noted Date Comments Caffeine Other (See Comments) Medium 02/02/2011 Increases heart rate. Formaldehyde Rash Medium 02/02/2011 Latex Rash Medium 02/02/2011 bandaids and gloves, bandaids and gloves, bandaids and gloves bandaids and gloves, bandaids and gloves, bandaids and gloves Nsaids (Non-Steroidal Anti-Inflammatory Drug) Other (See Comments) Low 11/13/2019 Medications aspirin (ECOTRIN EC) 81 mg Tablet, Delayed Release (E.C.) aspirin 81 mg tablet,delayed release Take 1 tablet every day by oral route. 1 Active atorvastatin (LIPITOR) 10 mg tablet atorvastatin 10 mg tablet Active cholecalcifero l, vitamin D3, 1,000 unit Take 1,000 Units by mouth daily. Active cycloSPORINE (Restasis) 0.05 % emulsion Restasis 0.05 % eye drops in a dropperette 0 Active gemfibroziL (LOPID) 600 mg tablet gemfibrozil 600 mg tablet Active losartan (COZAAR) 100 mg tablet losartan 100 mg tablet Active metroNIDAZOLE (METROCREAM) 0.75 % Cream metronidazole 0.75 % topical cream APPLY TO THE AFFECTED AREA ON FACE TWICE DAILY 1 Active RABEprazole (ACIPHEX) 20 mg Tablet, Delayed Release (E.C.) rabeprazole 20 mg tablet,delayed release Active omega 2-hbi-uso-fish oil 1,000 mg (250 mg-750 mg)/5 mL Liquid Take by mouth. Activ e Active Problems No known active problems Encounters Date Type Department Care Team Description 10/19/2024 External Device Data STL ABSTRACTION Provider, Abstract 10/18/2024 External Device Data [facility] ABSTRACTION Provider, Abstract 10/17/2024 External Device Data [facility] ABSTRACTION Provider, Abstract 10/05/2024 Telephone [facility] Juan Francisco [address] [place] [address] Conrado López MD lab work for appointment 10/05/2024 Orders Only [facility] [address] [place] [address] Conrado López MD Chronic anemia (Primary Dx); Other secondary thrombocytopenia from Last 3 Months Family History Medical History Relation Name Comments Prostate Cancer Brother 1 Prostate Cancer Brother 2 Stroke Brother 2 Brain Cancer Father Lung Cancer Father Heart Disease Mother No Known Problems Sister 1 No Known Problems Sister 2 No Known Problems Son 1 Heart Disease Son 2 Relation Name Status Comments Brother 1 Brother 2 Alive Father Mother Sister 1 Alive Sister 2 Alive Son 1 Alive Son 2 Alive Social History Tobacco Use Types Packs/Day Years Used Date Smoking Tobacco: Never Smokeless Tobacco: Never Tobacco Cessation:Counseling Given: Not Answered Alcohol Use Standard Drinks/Week Comments Not Currently 0 (1 standard drink = 0.6 oz pure alcohol) social before, nothing for years Comments Unknown Sex and Gender Information Value Date Recorded Sex Assigned at Not on file Legal Sex Female 2:48 PM CDT Gender Identity Not on file Sexual Orientation Not on file Last Filed Vital Signs Vital Sign Reading Time Taken Comments Blood Pressure 138/60 10/04/2023 11:23 AM EASEMENT MAN Pulse 67 10/04/2023 11:23 AM EASEMENT MAN Temperature 36.6 ??C (97.9 ??F) 10/04/2023 11:[address] Respiratory Rate 10 10/04/2023 11:23 AM EASEMENT MAN Oxygen Saturation 98% 10/04/2023 11:23 AM EASEMENT MAN Inhaled Oxygen Concentration - - Weight 73.5 kg (162 lb) 10/04/2023 11:23 AM EASEMENT MAN Height 165.1 cm (5' 5 ) 10/05/2022 1:16 PM EASEMENT MAN Body Mass Index 26.96 10/05/2022 1:16 PM EASEMENT MAN Plan of Treatment Upcoming Encounters Date Type Department Care Team (Late st Contact Info) Description 12/18/2024 11:15 AM CDT Office Visit [facility] - Juan Francisco [address] [facility] [address] [place] [address] Conrado López MD [address] [facility] [address] [place] [address] Health Maintenance Due Date Last Done Comments ZOSTER VACCINE (2 of 3) 12/04/2013 10/09/2013 RSV VACCINE (60+ or ) (1 - 1-dose 75+ series) 2021 DTAP/TDAP/TD VACCINES (2 - T d or Tdap) 08/04/2022 08/04/2012 INFLUENZA VACCINE (#1) 2024 , 07/21/2018, 07/30/2017, Additional history exists PNEUMOCOCCAL VACCINE 65+ YEARS Completed 10/11/2015 , 09/08/2012 OSTEOPOROSIS SCREENING Completed 06/30/2022, 2018 Insurance [employer] MEDICARE PART A AND B Care Teams Backend Python Developer Relationship Specialty Start Date End Date Tiny Gonzalez MD [address] [place] [address] PCP - General Family Practice 10/05/22
--- OUTSIDE RECORDS SUMMARY | 2024-10-24 12:52 | XMS_ITS | Encounter Summary ---
Author Organization [facility] Care Team Providers Care Special Tester Name Role Phone Maya Villegas MD Primary Care Provider + [phone] Tiny Gonzalez MD Primary Care Provider [phone] Yuri Rockwell MD Unavailable [phone] Encounter Details Date Type Department Care Team (Latest Contact Info) Description 12/27/2017 Orders Only [facility] ProviderEdi MD [address] [place] [address] [id number] Social History Tobacco Use Types Packs/Day Years Used Date Smoking Tobacco: Never Assessed Comments Unknown Sex and Gender Information Value Date Recorded Sex Assigned at Not on file Legal Sex Female 8:50 PM APPRISE COUNSELOR Gender Identity Not on file Sexual Orientation Not on file documented as of this encounter Plan of Treatment Not on file documented as of this encounter Procedures Procedure Name Priority Date/Time Associated Diagnosis Comments PROCEDURE - RESULT 12/27/2017 12 :00 AM CDT documented in this encounter Results * PROCEDURE - RESULT (12/27/2017 12:00 AM CDT) Narrative 12/27/2017 12:00 AM CDT Ordered by an unspecified provider. Historical Provider Final Res ult documented in this encounter Visit Diagnoses Not on filedocumented in this encounter Care Teams Special Tester Relationship Specialty Start Date End Date Maya Villegas MD PCP - General Family Practice 10/19/19 02/16/21 Tiny Gonzalez MD PCP - General Family Medicine 02/17/21 Yuri Rockwell MD [address] [place] [address] Referring Physician Otolaryngology 10/10/21 documented as of this encounter
--- OUTSIDE RECORDS SUMMARY | 2024-10-24 12:53 | XMS_ITS | Referral Summary ---
Author Organization [facility] Address [address] [place] [address] Care Team Providers Care Payroll Manager Name Role Phone Benjamín Mcmahan MD Primary Care Provider [phone] Source Comments [facility] Affiliates and Associated Physician Practices is amultiple site organization consisting of ambulatory clinics and hospital sitesin [place], [place], [place] and [place]. This disclosure is being madepursuant to the Care Everywhere program and may not contain all information available regarding this patient. Last updated 18.[facility] [employer] [facility] Allergies Active Allergy Reactions Criticality Noted Date Comments Caffeine Rash Medium 02/02/2011 Formaldehyde Rash Medium 02/02/2011 Latex Rash Medium 02/02/2011 bandaids and gloves, bandaids and gloves, bandaids and gloves Social History Tobacco Use Types Packs/Day Years Used Date Smoking Tobacco: Never Smokeless Tobacco: Never Alcohol Use Standard Drinks/Week Comments No 0 (1 standard drink = 0.6 oz pur e alcohol) Sex and Gender Information Value Date Recorded Sex Assigned at Not on file Gender Identity Not on file Sexual Orientation Not on file Plan of Treatment Not on file Care Teams Payroll Manager Relationship Specialty Start Date End Date Benjamín Mcmahan MD [address] [place] [address] PCP - General 01/14/11
--- OUTSIDE RECORDS SUMMARY | 2024-10-24 12:53 | XMS_ITS | Patient Health Summary ---
Author Organization [facility] Address [address] [place] [address] Care Team Providers Care Refined Syrup Operator Name Role Phone Benjamín Mcmahan MD Primary Care Provider [phone] Note from [facility],non-owned Affiliates and Associated Physician Practices is amultiple site organization consisting of ambulatory clinics and hospital sitesin [place], [place], [place] and [place]. This disclosure is being madepursuant to the Care Everywhere program and may not contain all information available regarding this patient. Last updated 18.[facility] Allergies * Caffeine(Rash) -Medium Criticality * Formaldehyde(Rash) -Medium Criticality * Latex(Rash) -Medium Criticality Social History Tobacco Use Types Packs/Day Years Used Date Smoking Tobacco: Never Smokeless Tobacco: Never Alcohol Use Standard Drinks/Week Comments No 0 (1 standard drink = 0.6 oz pur e alcohol) Sex and Gender Information Value Date Recorded Sex Assigned at Not on file Gender Identity Not on file Sexual Orientation Not on file Procedures * DERMATOPATHOLOGY(Performed 01/13/2021) * DERMATOPATHOLOGY(Performed 07/01/2012) * DERMATOPATHOLOGY(Performed 01/23/2011) * DERMATOPATHOLOGY(Performed 01/09/2011) Results * DERMATOPATHOLOGY (01/13/2021 12:00 AM CDT) Only the most recent of4 resultswithin the time period is included. Case Report Dermatopathology Report ? Case: [id number] ? Authorizing Provider: ??Danielle Ortega MD ? Collected: ? 01/13/2021 12:00 AM ? Ordering Location: ? [facility] DermPath Lab ?Received: ?01/14/2021 10:30 AM ? Pathologist: ? Terese Andrade MD ? Specimen: ?Skin, left back ? 2:22 PM CDT DERMATOPATHOLOGY LABORATORY Amended Report Date of collection changed from 01/14/21 to 01/13/21. 2:22 PM CDT DERMATOPATHOLOGY LABORATORY Final Diagnosis Specimen A. SKIN, left back: SEBORRHEIC KERATOSIS, CLONAL TYPE (L82.1) 2:22 PM T DERMATOPATHOLOGY LABORATORY Amendment electronically signed by Terese Andrade MD on 01/22/2021 at 2:22 PM Clinical History R/O SK, irritated. 2:22 PM CDT DERMATOPATHOLOGY LABORATORY Gross Description Specimen A: Received is one formalin filled container labeled with the patient's name and designated left back. The specimen consists of a shave measuring [id number]. Jar 0+. 04/28/202 1 2:22 PM CDT DERMATOPATHOLOGY LABORATORY Microscopic Description Specimen A. SKIN, left back: Sections show a proliferation of keratinocytes with overlying hyperkeratosis. Aggregates of keratinocytes with abundant pale-staining cytoplasm appear demarcated from surrounding basaloid keratinocytes. 1 2:22 PM CDT DERMATOPATHOLOGY LABORATORY Disclaimer An external and internal positive and negative controls are appropriate for the histochemical, immunohistochemical and immunofluorescence stain(s) in this case (if any), except where stated explicitly. The performance characteristics of the stain(s) cited in this report were developed and its performance characteristic determined by the Dermatopathology Laboratory at [facility], directed by Dr. Cathy Looney. These tests need not be, and therefore are not, approved by the [place] Food and Drug Administration. The tests are used for clinical purposes. Billing Codes Specimen Charges Stain Charges 67794 1 1 2:22 PM CDT DERMATOPATHOLOGY LABORATORY Embedded Images 1 2:22 PM CDT DERMATOPATHOLOGY LABORATORY Pathology/Cytolog y TISSUE SPECIMEN FROM SKIN / Unknown 01/13/2021 01/14/2021 10:30 AM CDT Danielle Ortega MD LAB - PATHOLOGY/CYT OLOGY ORDERABLES DERMATOPATHOLOGY LABORATORY [facility] - Department of Dermatology [facility] Specialized Medicine [address] [place] [address], [address] [phone] Care Teams Refined Syrup Operator Relationship Specialty Start Date End Date Benjamín Mcmahan MD [address] [address] PCP - General 01/14/11
--- OUTSIDE RECORDS SUMMARY | 2024-10-24 12:53 | XMS_ITS | Data Portability ---
Author Organization [facility] [place] Address [address] [address] [place] [address] Care Team Providers Care Supervisor Billposting Name Role Phone KAI JARA Primary Care Provider Assessment Encounter Date Assessment Date Assessment LastModified by Organization Details LastModified Time 03/08/2020 03/08/2020 Annual gynecological exam performed. Patient will come back in a year unless there are new symptoms. [email or web address] Not available 03/08/2020 11:58:02 06/20/2022 06/20/2022 Annual gynecological exam performed. Patient will come back in a year unless there are new symptoms. [email or web address] Not available 06/20/2022 10:10:52 Plan of Treatment Reminders Order Date Submit Date Provider Last Modified By Organization Details Last Modified Time Details Appointments None recorded. Lab None recorded. Referral None recorded. Procedures None recorded. Surgeries None recorded. Imaging MAMMO, screening, bilateral 2021 022 [email or web address] [facility], [address], [place], [address], 21:45:32 Medication Orders None recorded. Patient TargetsNo targets recorded. Patient InstructionsNo instructions recorded. Reason for Referral None Reported. Results Created Date Observation Date Name Description Value Unit Range Abnormal Flag Note LastModifiedBy Organization Detail LastModifiedTime 04/18/20 20 MAMMO , scree darrick, bilat eral No observ ation record ed. DOMINIQUE Not Available 2019 11:23:57 09/08/20 22 09/07/2022 MAMMO , scree darrick, bilat eral No observ ation record ed. [facility] [address], [place], [address], 09/17/2022 12:46:04 Result Notes None recorded. Procedures Surgical History Date Name Laterality Status Provider Name and Address Organization Details Recorded Time 022 Date of Last Pap Smear completed [facility] 06/20/2022 10:23:43 018 arthroplasty of knee completed [facility] 03/08/2020 10:26:29 012 Dilation and Curettage completed [facility] 06/20/2022 10:22:32 010 Date of Last Colonoscopy completed [facility] 06/24/2022 20:19:03 010 Colonoscopy completed [facility] 03/08/2020 10:28:54 002 Carpal tunnel surgery completed [facility] 06/20/2022 10:19:23 000 procedure on back completed [facility] 06/20/2022 10:22:44 995 hemorrhoidectomy completed [facility] 06/20/2022 10:22:57 986 ligation of bilateral fallopian tubes completed [facility] 03/08/2020 10:27:20 Imaging Results Imaging Date Name Status LastModified by Organiz ation Details LastModified Time 04/18/2020 MAMMO, screening, bilateral completed [email or web address] Information not available 05/09/2020 11:23:57 09/07/2022 MAMMO, screening, bilateral completed [facility] [address], [place], [address], 09/17/2022 12:46:04 Procedure Notes None recorded. Medical Equipment None Reported. Allergies No known drug allergies Medications Name Sig Start Date Stop Date Status Note LastModified by Organization Details LastModified Time amoxicill in 500 mg capsule TK FOUR CS PO 1 HOUR B DAPP 06/20 completed Not Available Not Available Not Available rabeprazo le 20 mg tablet,de layed release Take 1 tablet every day by oral route. active Not Available Not Available No t Available atorvasta tin 10 mg tablet active Not Available Not Available Not Available Anucort-H C 25 mg supposito ry UNWRAP AND INSERT 1 SUPPOSIT ORY RECTALLY EVERY DAY NEEDED active Not Available Not Available No t Available Diflucan 150 mg tablet take 1 tablet by oral route once 06/20 completed Prescrib kenzie Harper e: No Locat ion: [facility] odify By: macario tz Encou nter DateTime : 05/09/20 10:00:00 AM Not Available Not Available Not Available gemfibroz il 600 mg tablet take 1 tablet (600MG) by oral route 2 times every day 30 minutes before morning and evening meal active Not Available Not Available No t Available metronida zole 0.75 % topical cream APPLY TO THE AFFECTED AREA ON FACE TWICE DAILY 06/20 completed Not Available Not Available Not Available losartan 100 mg tablet take 1 tablet (100MG) by oral route every day active Not Available Not Available No t Available cyclobenz aprine 5 mg tablet TAKE 1 TABLET BY MOUTH THREE TIMES DAILY NEEDED FOR MUSCLE SPASM 06/20 completed Not Available Not Available Not Available Restasis 0.05 % eye drops in a dropperet te active Not Available Not Available Not Available nitrofura ntoin monohydra te/macroc rystals 100 mg capsule TAKE 1 CAPSULE BY MOUTH EVERY 12 HOURS FOR 5 DAYS 06/20 completed Not Available Not Available Not Available aspirin active Not Available Not Avail able Not Available amoxicill in 06/20 completed Not Available Not Available Not Available pepsin (bulk) 06/20 completed Not Available Not Available Not Available losartan 06/20 completed Not Available Not Available Not Available gemfibroz il 06/20 completed Not Available Not Available Not Available Vitamin D3 06/20 completed Not Available Not Available Not Available Glenna michael 06/20 completed Not Available Not Available Not Available dg willoughby 06/20 completed Not Available Not Available Not Available Restasis 06/20 completed Not Available Not Available Not Available Vitamin D3 100 mcg (4,000 unit) capsule 06/20 completed Not Available Not Available Not Available Vitals Date Recorded Body height Body mass index (BMI) Body weight Systolic blood pressure Diastolic blood pressure Provider Name and Address Organization Details Last Updated DateTime 03/08/2020 1981.2 cm 0.2 kg/m2 25510.07 g 114 mm[Hg] 70 mm[Hg] Stephani Churchill [facility] 0 12:07:25 Date Recorded Body height Body mass index (BMI) Body weight Systolic blood pressure Diastolic blood pressure Provider Name and Address Organization Details Last Updated DateTime 06/20/2022 163.2 cm 27.6 kg/m2 82536.96 g 120 mm[Hg] 68 mm[Hg] Love Abbott [facility] 2 10:11:12 Social History Question Answer Notes LastModified by Organizat ion Details LastModified Time Tobacco Smoking Status Never Smoker Love Abbott [facility] 06/20/2022 10:11:38 Do You Have An Advance Directive? No [email or web address] Information n ot available 06/20/2022 What Is Your Level Of Alcohol Consumption? None [email or web address] Information not available 06/20/2022 Are You Blind Or Do You Have Difficulty Seeing? No [email or web address] Information n ot available 06/20/2022 What Is Your Level Of Caffeine Consumption? None [email or web address] Information not available 06/20/2022 How Much Tobacco Do You Chew? None [email or web address] Information not available 06/20/2022 In The 14 Days Before Symptom Onset, Have You Had Close Contact With A Laboratory-confirm ed COVID-19 While That Case Was Ill? No [email or web address] Information n ot available 06/20/2022 In The 14 Days Before Symptom Onset, Have You Had Close Contact With A Person Who Is Under Investigation For COVID-19 While That Person Was Ill? No [email or web address] Information not available 06/20/2022 Have You Been To An Area Known To Be High Risk For COVID-19? No [email or web address] Information not available 06/20/2022 Are You Deaf Or Do You Have Serious Difficulty Hearing? No [email or web address] Information not available 06/20/2022 What Type Of Diet Are You Following? REGULAR [email or web address] Information n ot available 06/20/2022 What Is The Highest Grade Or Level Of School You Have Completed Or The Highest Degree You Have Received? [id number] [email or web address] Information not available 06/20/2022 What Is Your Occupation? Retired [email or web address] Information not available 06/20/2022 Are There Any Guns Present In Your Home? No [email or web address] Information not available 06/20/2022 Do You Use Protection During Sex? No [email or web address] Information not available 06/20/2022 Do You Use Your Seat Belt Or Car Seat Routinely? Yes [email or web address] Information not available 06/20/2022 Do You Have Smoke And Carbon Monoxide Detectors In Your Home? Yes Information not available 06/20/2022 How Much Tobacco Do You Smoke? No [email or web address] Information not available 06/20/2022 Do You Feel Stressed (tense, Restless, Nervous, Or Anxious, Or Unable To Sleep At Night)? [id number] [email or web address] Information not available 06/20/2022 Do You Use Any Illicit Or Recreational Drugs? No [email or web address] Information not available 06/20/2022 Do You Use Sunscreen Routinely? Yes Information not available 06/20/2022 Has Tobacco Cessation Counseling Been Provided? No Information not available 06/20/2022 Have You Used IV Drugs? No [email or web address] Information not available 06/20/2022 Do You Or Have You Ever Used Any Other Forms Of Tobacco Or Nicotine? No [email or web address] Information not available 06/20/2022 Sex: Unknown Functional Status Question Answer Note LastModified by Organizat ion Details LastModified Time Do you have difficulty walking or climbing stairs? No [email or web address] Information not available 06/20/2022 Are you able to walk? YESWOREST [email or web address] Information not available 06/20/2022 Are you able to care for yourself? Yes [email or web address] Information not available 06/20/2022 Do you have difficulty dressing or bathing? No [email or web address] Information not available 06/20/2022 What is your exercise level? Moderate [email or web address] Information not available 06/20/2022 Mental Status None recorded. Family History Relationship Description Onset Age of this Age Resolved Age Notes LastModified by Organization Details LastModified Time Father Malignant tumor of lung smoker 69 y/o [email or web address] Not available 03/08/2020 10:25:32 Mother Myocardial infarction [email or web address] Not available 03/08 10:25:55 Notes:Father: Cancer, lung M other: Myocardial infarction Medical History Condition Response Allergies (Food, seasonal, environmental ) N Other N Breast Cancer N Drug/Latex Allergies/Reactions N Blood Transfusion N Lung Disease N Dermatologic Disorders Y Defects or Inherited Disease N Breast Problem N Gestational Diabetes N Hematologic disorders N Anesthesia Complications N History of STI N Deep Vein Thrombosis N Polycystic ovary syndrome N Anxiety Disorder N Autoimmune disease N Arthritis N Infertility N Polyps N Acid Reflux (GERD) Y History of abnormal pap N Cancer N Stroke N Varicosities N Neurologic/Epilepsy N Endometriosis N High Cholesterol Y Headaches N Fibromyalgia N Kidney Disease N Heart Problems N Kidney or Bladder Problems N Thyroid Problems N GI Problems Y Eating Disorder N Anemia N Art (IVF or FET) N Psychiatric Illness N Ovarian Cancer N Diabetes N Pulmonary (TB, Asthma) N Hepatitis/Liver Disease N No Past Medical History N Eczema N Urinary Tract Infection N Abuse/Domestic Violence N Asthma N Trauma/Violence N Depression/ depression N Heart Disease N Pre-Eclampsia N Hypertension Y Osteoporosis Y Thrombophilias N Gynecological History Statement/Question Response If Post Menopausal, Age at Menopause 66 Date of Last Mammogram Date of Last Colonoscopy 09/27/2009 Date of LMP 09/27/2010 STIs/STDs N Date of DEXA bone scan Date of Last Pap Smear 06/20/2022 Current Control Method Tubal Ligat ion Obstetrics History GPAL:G 2 P 2 0 0 2 Type Value Full Term 2 Living 2 Total 2 Past Encounters Encounter ID Performer Location Encounter Start Date Encounter Closed Date Diagnosis/Indication Diagnosis SNOMED-CT Code Diagnosis ICD10 Code Diagnosis Note [id number] LEI PringleNP-BC [place] [address],[facility] [place] [address] 03/08/2020 11:53:18 03/08/2020 12:43:25 Gynecologic examination 22137687 Z01.419 Take Calcium with Vitamin D 12-1500mg daily. Do monthly self breast exams. It is advised to get annual flu shot in the fall and she could obtain at [facility] or [facility] clinic. If you haven't received the Tdap vaccine in the last 10 years you should obtain one as well. Have mammogram yearly, bone density every 2-3 years and colonoscop y every 5-10 years depending on findings and history. Engage in daily exercise of low impact aerobic exercise 45-60 minutes 4-5 times weekly. Avoid tobacco and illicit drugs as well as using moderation with alcohol intake less than 1-2 8 oz beverages daily. This lifestyle behavior pattern will lead to less health conditions and longer life span. If BMI greater than 25 weight watchers or dietary consult advised. Questions have been answered. Patient appears to understand instructio ns, but if you have any further questions call or respond to this email Dexa due 2020 Pap d/c per asccp unless otherwise indicated. Mammo ordered CBE done Decline std screen [id number] Teresa Andrade , [facility] [address],[place] [address] 06/20/2022 09:59:03 06/20/2022 10:39:23 Gynecologic examination 10161291 Z01.419 Take Calcium with Vitamin D 12-1500mg daily. Do monthly self breast exams. It is advised to get annual flu shot in the fall and she could obtain at [facility] or [facility]. If you haven't received the Tdap vaccine in the last 10 years you should obtain one as well. Have mammogram yearly, bone density every 2-3 years and colonoscop y every 5-10 years depending on findings and history. Engage in daily exercise of low impact aerobic exercise 45-60 minutes 4-5 times weekly. Avoid tobacco and illicit drugs as well as using moderation with alcohol intake less than 1-2 8 oz beverages daily. This lifestyle behavior pattern will lead to less health conditions and longer life span. If BMI greater than 25 weight watchers or dietary consult advised. Questions have been answered. Patient appears to understand instructio ns, but if you have any further questions call or respond to this email Pap/hpv USPSTF recommends against screening for cervical cancer in women older than 65yo, those who've had a hysterecto my for non-cancer indication s, & who have had adequate prior screening & are not otherwise at high risk for cervical cancer. STD Screen declinedGe netic Screen discussedC olon Screen PCPDexa Screen PCPRoutine Labs PCPMammo Screening mammography 24 [id number] Z12.31 Health Concerns Section Related Observation LastModified by Organization Detai ls LastModified Time None Recorded Concern Status LastModified by Organization Details LastModified Time None Recorded Advance Directives Directive N: Payers Encounter Date Sequence Insurance Name Policy Number Policy [place] Covered Member ID [place] Member ID Guarantor Name 03/08/2020 2 [employer] - FOR LIFE (SECONDARY TO MEDICARE) Doc Zamora [id number] Melodie Zamora 03/08/2020 1 [place] Melodie Zamora [id number] Melodie Zamora 06/20/2022 2 [employer]PS - FOR LIFE (SECONDARY TO MEDICARE) Doc Zamora [id number] Melodie Zamora 06/20/2022 1 [place] Melodie Zamora [id number] Melodie Zamora Notes Date Note Type Note Provider Name and Address Organization Details Recorded Time 03/08/2020 text/html Annual GYNReport ed bypatient.History: no gynecologic complaints Menstrual cycle:Normal menses Urinary symptoms:No hematuria; No incontinence Vulva:No genital lesion Vagina:Normal vaginal discharge Breast:No breast pain; No breast lump; No nipple discharge Current Contraception:post menopausal Sexual complaints:No sexual complaints; No pain during intercourse; Normal libido Menopausal Symptoms:No menopausal symptoms; Normal vaginal lubrication Psychological symptoms:No depression; No anxiety; No PMDD Preventive measures:Encourage self breast examination; Encourage regular exercise; Encourage no tobacco use; Needs to schedule mammogram; Up to date on colonoscopy screening; Dexa due 2020 Teresa Andrade, [facility] [address], [place], [address], [place] [facility] 03/08/2020 13:02:31 06/20/2022 text/html Annual Coding Advisor Post-MenopausalRep orted bypatient.Menopaus al Symptoms:no menopausal symptoms; normal vaginal lubrication Vaginal Bleeding:history of menopause having occurred; no history of post menopausal bleeding Urinary Symptoms:no hematuria; no incontinence; no nocturia; no urinary frequency Vulva:no genital lesion; no vulvar atrophy Vagina:normal vaginal discharge; no vaginal atrophy Breast:no breast lump; no nipple discharge; no breast pain Sexual Complaints:no sexual complaints Psychological Symptoms:no depression; no anxiety Preventive Measures:encourage regular mammograms starting age 40; encourage self breast examination; encourage regular exercise; encourage no tobacco use; needs to schedule mammogram; history of recent colonoscopy Teresa Andrade, [facility]- [address], [place], [address], [facility] 06/20/2022 10:36:52 OBGyn Episode Ob Episode Information Episode Created Date Number of Fetuses Patient Bloodtype Patient rh Status Prepregnancy Weight lbs Domestic Partner Domestic Partner Phone Father Name Crossing Guard Status 03/08/20 20 1 CLOSED Fetus Data First Name Last Name Admitted to NICU Weight (g) Sex Living Outcome Pediatric Complications Fetus ID Race Codes Race Delivery Type 3033.16 [id number] M Full Term 2210 Vaginal Delivery Dudley Calculation Initial Dudley Date Initial Exam Date Initial Exam Provider Initial Ultrasound Date Last Menstrual Period Date Ultra Sound Weeks Gestation 0 Eighteen To Twenty Week Dudley Update Ultra Sound Date Fundal Height At Umbil Quickening Date Ultra Sound Latest Weeks Gestation Final Dudley Confirmed By Final Dudley Confirmed Date Final Dudley Date Ultra Sound Latest Days Gestation 0 0 Menstrual History Last Menstrual Date Menses Monthly On Bcp Conception Prior Menses Frequency Hcg Plus Date Menarche Onset Age Delivery Information Delivery Date Delivery Type Labor Anesthesia Weeks Gestation Incision Type Labor Labor Length Hrs Delivered By Post Complications Tubal Sterilization Discharge Date Comments 1 40 Discharge Information Feeding Method Contraceptive Method Maternal HG B and HCT Levels Ob Episode Information Episode Created Date Number of Fetuses Patient Bloodtype Patient rh Status Prepregnancy Weight lbs Domestic Partner Domestic Partner Phone Father Name Crossing Guard Status 03/08/20 20 1 CLOSED Fetus Data First Name Last Name Admitted to NICU Weight (g) Sex Living Outcome Pediatric Complications Fetus ID Race Codes Race Delivery Type 3033.16 [id number] M Full Term 2211 Vaginal Delivery Dudley Calculation Initial Dudley Date Initial Exam Date Initial Exam Provider Initial Ultrasound Date Last Menstrual Period Date Ultra Sound Weeks Gestation 0 Eighteen To Twenty Week Dudley Update Ultra Sound Date Fundal Height At Umbil Quickening Date Ultra Sound Latest Weeks Gestation Final Dudley Confirmed By Final Dudley Confirmed Date Final Dudley Date Ultra Sound Latest Days Gestation 0 0 Menstrual History Last Menstrual Date Menses Monthly On Bcp Conception Prior Menses Frequency Hcg Plus Date Menarche Onset Age Delivery Information Delivery Date Delivery Type Labor Anesthesia Weeks Gestation Incision Type Labor Labor Length Hrs Delivered By Post Complications Tubal Sterilization Discharge Date Comments 9 40 Discharge Information Feeding Method Contraceptive Method Maternal HG B and HCT Levels
--- OUTSIDE RECORDS SUMMARY | 2024-10-24 12:53 | XMS_ITS | Referral Summary ---
Author Organization [facility] Address [address] [place] [address] Care Team Providers Care Solderer Electronic Name Role Phone Tiny Gonzalez MD Primary Care Provider [phone] Yuri Rockwell MD Unavailable [phone] Encounters Date Type Department Care Team Description 09/28/2024 2:30 PM [employer]ITY [employer] Office Visit [facility] Otolaryngology [address] [place] [phone] Sherron Cotto, ALVERTO Chronic eczematous otitis externa of both ears (Primary Dx) 09/28/2024 2:00 PM [employer] Procedure visit [facility] Otolaryngology [address] [place] [phone] Selin Knowles Au.D. Ear pressure, bilateral (Primary Dx) from Last 3 Months Allergies Active Allergy Reactions Criticality Noted Date Comments Caffeine Other (See comments) Medium 02/02/2011 Increases heart rate. Formaldehyde Rash Medium 02/02/2011 Latex Rash Medium 02/02/2011 bandaids and gloves, bandaids and gloves, bandaids and gloves Nsaids (Non-Steroidal Anti-Inflammatory Drug) Other (See comments) Low 11/13/2019 Medications Restasis 0.05 % ophthalmic emulsion 0 Active losartan (COZAAR) 100 mg tablet losartan 100 mg tablet Active gemfibroziL (LOPID) 600 mg tablet Take 1 tablet (600 mg total) by mouth 2 (two) times a day before breakfast and lunch Active RABEprazole DR (ACIPHEX) 20 mg EC tablet Take 1 tablet (20 mg total) by mouth daily Active cholecalciferol (VITAMIN D-3) 25 mcg (1,000 unit) tablet Take 1 tablet (1,000 Units total) by mouth daily Active aspirin 81 mg enteric coated tablet Take 1 tablet (81 mg total) by mouth every other day Active atorvastatin (LIPITOR) 10 mg tablet Take 1 tablet (10 mg total) by mouth daily Active metroNIDAZOLE (METROCREAM) 0.75 % cream APPLY TO THE AFFECTED AREA ON FACE TWICE DAILY 1 Active lutein-zeaxanth in 20-4 mg capsule 3 Active fluocinolone in oil (DermOtic) 0.01 % dropsIndication s:Otitis Externa Eczema Administer 3 drops into each ear 2 (two) times a day for 14 days And then as needed 20 mL 1 5 10/12/19 25 Active Problems Problem Noted Date Diagnosed Date Tinnitus of right ear 04/23/2023 Sensorineural hearing loss (SNHL) of both ears 0 04/23/2023 Hyperosmia 12/01/2022 Assessment & Plan (12/29/2022 12:48 PM CDT): This seems to have improved. She does think that the vitamin B supplement may be causing some of the symptoms. Since she discontinued it her symptoms have improved. Her headaches have improved. We talked about getting an MRI scan but she would like to hold off on that. She is talking with her other doctors about trying something else for her vitamin deficiency. She will let me know if she wants to do anything with regards to an MRI scan. Otherwise at this point I had no further recommendations. Assessment & Plan (12/01/2022 9:10 PM COMM[employer]ITY [employer]): I talked with her about treating her presumptively for sinusitis and following that up with an MRI scan if her symptoms did not improve. She noted that a couple of her new vitamins for her B12 deficiency and an eye health vitamin might be causing these symptoms. She noted that the problem started shortly after taking either 1 of those. I think it would be reasonable to have her discontinue these 2 new vitamins case that is what is causing her abnormal smell sensation. She is going to go ahead and do that. She is going to follow up with me in a month. If her symptoms continue I may recommend treating with a steroid and antibiotic. Ultimately if her symptoms continue she needs an MRI scan. I talked with her about that also. Epistaxis 12/01/2022 Assessment & Plan (12/29/2022 12:47 PM CDT): I talked with her about HH T. I told her I think she has a very mild case of that. At this point there is no need for intervention but if she has further bleeding I suggested that she call us. Assessment & Plan (12/01/2022 9:08 PM COMM[employer]): She is had some pretty minor problems with this over the years. I talked with her and her about this. On examination with scope today I noted a lot of very small vascular lesions. I think she probably suffers from a mild case of HHT. I talked with her about this. Will treat conservatively for now. LIBBY on CPAP 06/22/2022 Gastroesophageal reflux disease 06/22/2022 Thrombocytopenia 06/22/2022 Nonrheumatic aortic valve stenosis 06/22/2022 Dizziness and giddiness 10/16/2021 Coronary artery disease invo lving [place] coronary artery of [place] heart without angina pectoris 06/07/2020 Assessment & Plan (06/10/2021 10:19 AM CDT): Coronary artery disease is mild and asymptomatic. Will decrease aspirin from 81 mg daily to 81 mg every other day because of her easy bruising. Assessment & Plan (06/07/2020 5:40 PM CDT): Recent cardiac catheterization showed luminal irregularities but no obstructive coronary disease. Her bifurcating LAD is of no prognostic significance. She has no symptoms of myocardial ischemia, and the symptom of twinges lasting only seconds which prompted her cardiac evaluation is clearly not anything cardiac. Risk factors of hypertension and dyslipidemia are under good control. In the absence of symptoms, I would not recommend surveillance stress testing. We discussed that risk factor modification is important at this point. From my perspective, follow-up through her PCP would be an option in the absence of symptoms, but she prefers to see me on an annual basis, with which I am very comfortable. Primary hypertension 06/07/2020 Assessment & Plan (06/10/2021 10:19 AM CDT): Blood pressure is adequately controlled on current regimen. No change was made. Assessment & Plan (06/07/2020 5:37 PM CDT): Blood pressure is adequately controlled on current regimen. No change was made. Mixed hyperlipidemia 06/07/2020 Assessment & Plan (06/10/2021 10:20 AM CDT): Lipids from 07/30/2020 reviewed. They are at target on Lipitor and gemfibrozil. Assessment & Plan (06/07/2020 5:38 PM CDT): Lipids are reasonably controlled on low intensity statin therapy. She is reluctant to increase her Lipitor dosage, and with an LDL of 71 and only luminal irregularities I am comfortable with her remaining on low intensity statin therapy. Immunizations Name Administration Dates Next Due Moderna SARS-CoV-2 Monovalent Vaccination (12+ Y RS) 08/06/2021,12/06/2020 Social History Tobacco Use Types Packs/Day Years Used Date Smoking Tobacco: Never Smokeless Tobacco: Never Comments Unknown Sex and Gender Information Value Date Recorded Sex Assigned at Not on file Legal Sex Female 8:50 PM COMM[employer]ITY [employer] Gender Identity Not on file Sexual Orientation Not on file Last Filed Vital Signs Vital Sign Reading Time Taken Comments Blood Pressure 122/62 07/30/2023 8:45 AM CDT Pulse 74 07/30/2023 8:45 AM CDT Temperature 36.9 ??C (98.5 ??F) 12/24/2020 8:43 AM CD T Respiratory Rate 18 09/28/2024 2:11 PM [employer] Oxygen Saturation 94% 07/30/2023 8:45 AM CDT Inhaled Oxygen Concentration - - Weight 73.9 kg (163 lb) 09/28/2024 2:11 PM [employer] Height 165.1 cm (5' 5 ) 09/28/2024 2:11 PM [employer] Body Mass Index 27.12 09/28/2024 2:11 PM [employer] Plan of Treatment Not on file Insurance MEDICARE FOR LIFE MEDICARE [employer] FOR LIFE MEDICARE FOR LIFE Care Teams Solderer Electronic Relationship Specialty Start Date End Date Tiny Gonzalez MD PCP - General Family Medicine 02/17/21 Yuri Rockwell MD [address] [place] [address] Referring Physician Otolaryngology 10/10/21
--- OUTSIDE RECORDS SUMMARY | 2024-10-24 12:53 | XMS_ITS | Clinical Summary ---
Author Organization [facility] Address [address] [place] [address] Care Team Providers Care Burner Operator Name Role Phone Tiny Gonzalez MD Primary Care Provider [phone] Yuri Rockwell MD Unavailable [phone] Allergies Active Allergy Reactions Criticality Noted Date [...] recommendations. Assessment & Plan (12/01/2022 9:10 PM DUPLICATOR PUNCH SET UP OPERATOR): I talked with her about treating her [...] us. Assessment & Plan (12/01/2022 9:08 PM DUPLICATOR PUNCH SET UP OPERATOR): She is had some pretty minor problems [...] giddiness 10/16/2021 Coronary artery disease invo lving [place] coronary artery of [place] heart without angina pectoris 06/07/2020 Assessment & [...] her remaining on low intensity statin therapy. Encounters Date Type Department Care Team Description 09/28/2024 2:30 PM DUPLICATOR PUNCH SET UP OPERATOR Office Visit [facility] Otolaryngology [address] [place] [phone] Sherron Cotto NP Chronic eczematous otitis externa of both ears (Primary Dx) 09/28/2024 2:00 PM DUPLICATOR PUNCH SET UP OPERATOR Procedure visit [facility] Otolaryngology [address] [place] [phone] Selin Knowles Au.D. Ear pressure, bilateral (Primary Dx) from Last 3 Months Immunizations Name Administration Dates Next Due Moderna SARS-CoV-2 Monovalent Vaccination (12+ Y RS) 08/06/2021,12/06/2020 Surgical History Surgery Date Site/Laterality Comments REPLACEMENT TOTAL KNEE Right TUBAL LIGATION HEMORROIDECTOMY BACK SURGERY CARPAL TUNNEL RELEASE Right Medical History Medical History Date Comments GERD (gastroesophageal reflux disease) Hyperlipidemia Hypertension Sleep apnea Dizziness Neck mass Headache Covid 07/02/2022 Hyperosmia Ear problems Family History Medical History Relation Name Comments Cancer Brother Stroke Brother Cancer Father Heart attack Mother Fibromyalgia Sister Stroke Sister Relation Name Status Comments Brother Father Mother Sister Social History Tobacco Use Types Packs/Day Years Used Date Smoking Tobacco: Never Smokeless Tobacco: Never Comments Unknown Sex and Gender Information Value Date Recorded Sex Assigned at Not on file Legal Sex Female 8:50 PM DUPLICATOR PUNCH SET UP OPERATOR Gender Identity Not on file Sexual Orientation Not on file Obstetrics History Last Filed Vital Signs Vital Sign Reading Time Taken Comments Blood Pressure 122/62 07/30/2023 8:45 AM CDT Pulse 74 07/30/2023 8:45 AM CDT Temperature 36.9 ??C (98.5 ??F) 12/24/2020 8:43 AM CD T Respiratory Rate 18 09/28/2024 2:11 PM DUPLICATOR PUNCH SET UP OPERATOR Oxygen Saturation 94% 07/30/2023 8:45 AM CDT Inhaled Oxygen Concentration - - Weight 73.9 kg (163 lb) 09/28/2024 2:11 PM DUPLICATOR PUNCH SET UP OPERATOR Height 165.1 cm (5' 5 ) 09/28/2024 2:11 PM DUPLICATOR PUNCH SET UP OPERATOR Body Mass Index 27.12 09/28/2024 2:11 PM DUPLICATOR PUNCH SET UP OPERATOR Plan of Treatment Health Maintenance Due Date Last Done Comments Depression Screening 1945 Fall Risk Assessment 1945 Hepatitis C Screening 1945 Osteoporosis Screening-Bone Density Scan 1945 Hepatitis B Screening 1964 Well Visit 65+ 2011 Zoster Vaccine (2 of 3) 12/04/2013 10/09/2013 DTaP/Tdap/Td Vaccine (2 - Td or Tdap) 08/04/2022 08/04/2012, 08/04/2012 Covid-19 Vaccine (3 - 2023-2 5 season) 2024 08/06/2021, 12/06/2020 Influenza Vaccine (#1) 2024 9, 07/21/2018, 07/30/2017, Additional history exists Pneumococcal vaccine 65+ Completed 016, 09/08/2012, 09/08/2011 Insurance MEDICARE [facility] Address: [facility] [id number] [place] [phone] [employer] MEDICARE [facility] MEDICARE FOR LIFE Care Teams Burner Operator Relationship Specialty Start Date End Date Tiny Gonzalez MD PCP - General Family Medicine 02/17/21 Yuri Rockwell MD [address] [place] [address] Referring Physician Otolaryngology 10/10/21
--- OUTSIDE RECORDS SUMMARY | 2024-10-24 12:53 | XMS_ITS | Data Portability ---
Author Organization [place] - [facility] OFFICE Address [address] [place] [id number] Care Team Providers Care Concaving Machine Operator Name Role Phone OSMAN YO Primary Care Provider Assessment No assessment recorded. Plan of Treatment Reminders Order Date Submit Date Provider Last Modified By Organization Details Last Modified Time Details Appointments None recorded. Lab None recorded. Referral None recorded. Procedures None recorded. Surgeries None recorded. Imaging electrocar diogram 2019 DOMINIQUE Not available 0 16:12:14 Medication Orders atorvastat in 10 mg tablet 2019 [id number], [address], [place], [place], [id number], 0 17:06:18 atorvastat in 40 mg tablet 2019 020 INTERFACE [facility], [address] [place] [address], [address], 0 17:07:12 Patient TargetsNo targets recorded. Patient Instructions Encounter Date Encounter Id Patient Instructions Last Modified By Organization Details Last Modified Time 03/11/2020 [id number] chest pain: care instructions [email or web address] Not available 03/11/2020 17:20:03 high cholesterol : care instructions [email or web address] Not available 03/11/2020 17:20:03 04/01/2020 [id number] chest pain: care instructions [email or web address] Not available 04/01/2020 15:27:14 sleep apnea: car e instructions [email or web address] Not available 04/01/2020 15:27:14 gastroesophageal reflux disease (GERD): care instructions [email or web address] Not available 04/01/2020 15:27:14 high cholesterol : care instructions [email or web address] Not available 04/01/2020 15:27:14 04/25/2020 [id number] chest pain: care instructions [email or web address] Not available 04/25/2020 09:38:14 sleep apnea: car e instructions mzabad Not available 04/25/2020 09:38:15 gastroesophageal reflux disease (GERD): care instructions [email or web address] Not available 04/25/2020 09:38:15 high cholesterol : care instructions mzabad Not available 04/25/2020 09:38:15 Exercise advised Low cholesterol diet advised Low sodium diet advised. [email or web address] Not available 04/25/2020 09:26:11 Scribed by Nolan Zhao, MSN, CITY WELLNESS COORDINATOR, LINE UP EXAMINER-C [email or web address] Not available 04/25/2020 09:54:31 05/20/2020 [id number] sleep apnea: car e instructions [email or web address] Not available 05/20/2020 17:07:10 gastroesophageal reflux disease (GERD): care instructions [email or web address] Not available 05/20/2020 17:07:10 high cholesterol : care instructions [email or web address] Not available 05/20/2020 17:07:10 Exercise advised Low cholesterol diet advised Low sodium diet advised [email or web address] Not available 05/20/2020 16:08:34 Scribed by Jc Johnson LINE UP EXAMINER-BC [email or web address] Not available 05/20/2020 16:08:16 Reason for Referral None Reported. Results Created Date Observation Date Name Description Value Unit Range Abnormal Flag Note LastModifiedBy Organization Detail LastModifiedTime 03/07/20 20 03/05/2020 elect rocar diogr am No observ ation record ed. [email or web address] Not Available 2019 17:22:48 03/12/20 20 03/11/2020 elect rocar diogr am No observ ation record ed. [email or web address] Not Available 03/12 10:35:08 03/12/2003/01/2020 XR, chest No observ ation record ed. [email or web address] Not Available 2019 16:47:57 03/12/20 20 03/05/2020 elect rocar diogr am No observ ation record ed. [email or web address] Not Available 2019 16:47:57 03/18/20 20 03/13/2020 US, echoc ardio gram No observ ation record ed. [email or web address] Not Available 03/26 22:41:41 03/19/20 20 03/13/2020 US, echoc ardio gram No observ ation record ed. [email or web address] Not Available 2019 17:21:55 04/03/20 20 03/15/2020 chelsea can cardi olite stres s test (PROC ) No observ ation record ed. [email or web address] Not Available 04/07 16:29:25 04/30/20 20 04/15/2020 CT, angio gram, chest , w/wo contr ast No observ ation record ed. [email or web address] Not Available 2019 16:22:57 05/23/20 20 05/13/2020 MR, angio gram, coron alexus arter ies, w/o contr ast No observ ation record ed. [email or web address] Not Available 05/23 12:45:08 Result Notes Documentation Provider Name and Address Organization Details Recorded Time Cmp, Serum Or Plasma : 03/01/20:Na 139,K 3.9,Cl 104,CO2 27,GLU 120,BUN 13,Cr 0.7 . Mishel manzo [place] [facility] 03/13/2020 16:44:01 Cbc W/ Diff : 03/01/20:WBC 3.5,RBC 4.67,HGB 13.6,HCT 40.8,PLT 166. Mishel manzo [place] [facility] 03/13/2020 16:44:01 Lipid Panel, Blood : 03/27/20:TC 155,TG 185,LDL 82,HDL 29 . Mishel manzo [place] [facility] 04/28/2020 14:17:28 Sars Cov 2 Rna (covid-19), Ql, Closing Supervisor-pcr, Respiratory Specimen : COVID-19 RNA 05/10/20:not detected. Mishel manzo [place] [facility] 05/11/2020 15:51:10 Cbc W/ Diff : 05/13/20:WBC 4.2,RBC 4.68,HGB 13.7,HCT 40.9,PLT 147. Mishel manzo [place] [facility] 05/13/2020 13:29:33 Cmp, Serum Or Plasma : 05/13/20:Na 142,k 3.5,Cl 103,Co2 28,Glu 93,Bun 16,Cr 0.6, Mishel manzo, [facility] 05/13/2020 13:35:22 Lipid Panel, Blood : 05/13/20: TG 106,TC 131,HDL 39,LDL 71. [facility] 05/13/2020 13:35:38 Abo Group + Rh Type, Blood : 05/13/20: Blood type o pos,AB negative. Mishel manzo, [facility] 05/13/2020 13:35:48 Problems Name Problem SNOMED Code Status Onset Date Resolution Date Notes Provider Name and Address Organization Details Recorded Time Hypertensiv e disorder 90484380 Active 2019 [facility], [facility] 0 16:54:59 Hyperlipide ramon 13877324 Active 2019 [facility], [facility] 0 16:55:26 Obstructive sleep apnea syndrome 80662465 Active 2019 cpap [facility], [facility] 0 16:55:51 Gastroesoph ageal reflux disease 424562676 Active 2019 [facility], [place] [facility] 0 16:56:16 Chest pain 28827039 Completed 201905/20/2020 [facility], [facility] 0 17:06:09 Coronary atheroscler osis 194327155 Active 2019 [facility], [facility] 0 17:04:17 Problem Notes None recorded. Procedures Surgical History None recorded. Imaging Results Imaging Date Name Status LastModified by Organization Details LastModified Time 03/05/2020 electrocardiogram completed [email or web address] Informa tion not available 03/11/2020 17:22:48 03/11/2020 electrocardiogram completed [email or web address] Informa tion not available 03/12/2020 10:35:08 03/01/2020 XR, chest completed esto Information no t available 03/13/2020 16:47:57 03/05/2020 electrocardiogram completed [email or web address] Informa tion not available 03/13/2020 16:47:57 03/13/2020 US, echocardiogram completed Inform ation not available 03/19/2020 17:21:55 03/13/2020 US, echocardiogram completed [email or web address] Inform ation not available 03/26/2020 22:41:41 03/15/2020 lexiscan cardiolite stress test (PROC) completed [email or web address] Information not available 04/07/2020 16:29:25 04/15/2020 CT, angiogram, chest, w/wo contrast completed Information not available 04/30/2020 16:22:57 05/13/2020 MR, angiogram, coronary arteries, w/o contrast completed [email or web address] Information not available 05/23/2020 12:45:08 Procedure Notes None recorded. Medical Equipment None Reported. Medications Name Sig Start Date Stop Date Status Note LastModified by Organization Details LastModified Time cyclobenza rio 10 mg tablet 05/20 completed pt not taking 04/25/20 Not Available Not Available Not Available amoxicilli n 500 mg capsule 05/20 completed pt not taking 04/25/20 Not Available Not Available Not Available atorvastat in 40 mg tablet Take 1 tablet every day by oral route in the evening. active Not Available Not Available No t Available rabeprazol e 20 mg tablet,del ayed release Take 1 tablet every day by oral route in the morning. active Not Available Not Available No t Available famotidine 10 mg tablet Take 1 tablet every day by oral route in the morning. 04/01 completed Not Available Not Available Not Available atorvastat in 10 mg tablet Take 1 tablet every day by oral route. active Not Available Not Available No t Available fluconazol e 150 mg tablet 05/20 completed pt not taking 04/25/20 Not Available Not Available Not Available aspirin 81 mg tablet,del ayed release Take 1 tablet every day by oral route in the morning. active Not Available Not Available No t Available gemfibrozi l 600 mg tablet Take 1 tablet twice a day by oral route around the clock. active Not Available Not Available No t Available metronidaz ole 0.75 % topical cream 05/20 completed Not Available Not Available Not Available losartan 100 mg tablet Take 1 tablet every day by oral route in the morning. active Not Available Not Available No t Available Vitamin D3 25 mcg (1,000 unit) capsule Take 1 capsule every day by oral route. active Not Available Not Available No t Available Restasis 0.05 % eye drops in a dropperett e INSTILL 1 DROP INTO AFFECTED EYE(S) BY OPHTHALM IC ROUTE EVERY 12 HOURS active Not Available Not Available No t Available Fluad Quad [id number]( 65yr up)(PF) 60 mcg (15 mcg x 4)/0.5mL IM syringe active Not Available Not Available N ot Available Vitals Date Recorded Body height Body mass index (BMI) Body weight Heart rate Oxygen saturation Oxygen saturation in Arterial blood by Pulse oximetry Respiratory rate Systolic blood pressure Diastolic blood pressure Provider Name and Address Organization Details Last Updated DateTime 0 165.1 cm 29.1 kg/m2 24689.6 6 g 73 /min 97 % 97 % 18 /min 116 mm[Hg] 64 mm[Hg] MAGNOLIA WARNER [facility] 0 16:33:45 Date Recorded Body height Body mass index (BMI) Body weight Heart rate Respiratory rate Oxygen saturation Oxygen saturation in Arterial blood by Pulse oximetry Systolic blood pressure Diastolic blood pressure Provider Name and Address Organization Details Last Updated DateTime 0 165.1 cm 29.1 kg/m2 67895.6 6 g 71 /min 18 /min 97 % 97 % 140 mm[Hg] 80 mm[Hg] Sharee Ahn [facility] 0 14:53:37 Date Recorded Body height Body mass index (BMI) Body weight Heart rate Respiratory rate Oxygen saturation Oxygen saturation in Arterial blood by Pulse oximetry Systolic blood pressure Diastolic blood pressure Provider Name and Address Organization Details Last Updated DateTime 0 165.1 cm 28.8 kg/m2 21668.4 8 g 61 /min 18 /min 98 % 98 % 156 mm[Hg] 78 mm[Hg] Maribeth Domínguez [facility] 0 09:13:18 Date Recorded Body height Body mass index (BMI) Body weight Heart rate Respiratory rate Oxygen saturation Oxygen saturation in Arterial blood by Pulse oximetry Systolic blood pressure Diastolic blood pressure Provider Name and Address Organization Details Last Updated DateTime 0 165.1 cm 27.6 kg/m2 65456.3 3 g 74 /min 18 /min 96 % 96 % 140 mm[Hg] 80 mm[Hg] Sharee Ahn [facility] 0 16:08:40 Social History None recorded. Functional Status None recorded. Mental Status None recorded. Family History Relationship Description Onset Age of this Age Resolved Age Notes LastModified by Organization Details LastModified Time [facility] 50 [facility] Not available 03/11 16:56:42 Brother Transient [facility] Not available 2019 16:56:51 [facility]u [facility] Not available 16:57:03 Maternal Grandmother [facility] Not available 03/11 16:57:25 Medical History Condition Response Hyperlipidemia Y Hypertension Y Sleep Apnea Y GERD/Reflux Y Gynecological HistoryNo gynecological history recorded. Obstetrics History GPAL:G 0 P 0 0 0 0 Past Encounters Encounter ID Performer Location Encounter Start Date Encounter Closed Date Diagnosis/Indication Diagnosis SNOMED-CT Code Diagnosis ICD10 Code Diagnosis Note [id number] Kenji Chapman Office [address] [place] [address] 03/11/2020 15:45:55 03/11/2020 17:06:16 Chest pain 12427794 R07.9 Patient presents with {{chest* a rm back ja w}} pain {{typical of angina wit h atypical features*} }. Given the history, exam findings and {{high int ermediate * low}} cardiac risk factors, I {{feel* do not feel}} additional investigat ion is warranted. I have made arrangemen ts in the near future for {{an exercise stress echocardio gram to evaluate for any ischemia, structural heart disease, or exercise induced arrythmia an exercise stress nuclear test an exercise stress nuclear test (stress echo not possible due to COPD or obesity) a n exercise stress nuclear test and an echocardio gram to evaluate for any ischemia or structural heart disease a pharmacolo gic stress nuclear test due to reduced functional capacity or conduction abnormalit y* cardiac catheteriz ation an echocardio gram to evaluate left ventricula r function and any structural heart disease or valvular abnormalit y}}. The procedure was discussed with the patient, and risks, benefits, and alternativ e options were explained. {{ The patient was informed about heart catheteriz ation and interventi onal procedures and agrees to proceed.}} Appropriat e labwork {{has has not*}} been performed recently, therefore I {{have not have*} } made arrangemen ts for further testing. I have asked the patient to curtail exercise and activities until our investigat ion is complete. I have {{made no made the following* }} adjustment s to the present medical regimen. {{ Patient has been started on daily aspirin.*} } {{ Patient has been given a prescripti on for sublingual nitroglyce rin.}} ECHO Hyperlipidemia 56503206 E78.5 will obtain FLP. cont current meds Hypertensive disorder 38 903879 I10 Patient's blood pressure is {{well-con trolled* n ot well-contr olled}} on present medical therapy. Patient is {{tolerati ng, without difficulty ,* having side effects with}} the current medication s. I have {{not made* made the following} } changes to the current regimen. {{ Patient is advised to maintain a blood pressure diary.*}} Cont [place]. [id number] Kenji Garsiai Ari [facility] Office [address] [place] [facility] [place] [address] 04/01/2020 14:44:43 04/01/2020 15:22:44 Chest pain 63688925 R07.9 Resolved Stress test 03/15/2020 showed normal LV systolic function. Due to TDS cannot comment on apical perfusion. Recommend coronary CTA. Findings were d/w pt and her family.Sin ce pt had\s claustopho nadine she prefers to avoid CTA if possible. Hyperlipidemia 95638501 E78.5 Lipid panel 03/27/2020 TC 155, TR 185, LDL 82, HDL 29on gemfibrozi lCan not tolerate Fish oil or niacin. Not interested in starting statin at this pointcont diet Hypertensive disorder 38 402237 I10 Patient's blood pressure is {{well-con trolled* n ot well-contr olled}} on present medical therapy. Patient is {{tolerati ng, without difficulty ,* having side effects with}} the current medication s. I have {{not made* made the following} } changes to the current regimen. {{ Patient is advised to maintain a blood pressure diary.*}} Cont low Na diet. Gastroesop hageal reflux disease 603213037 K21.9 she will follow-up with GI Obstructiv e sleep apnea syndrome 18747773 G47.33 Follows with pulmonolog y [id number] [facility] Noel [facility] [place] [address] [place] [address] 04/25/2020 09:01:25 04/25/2020 10:44:04 Chest pain 11583991 R07.9 CT chest with heavily calcified LAD that is possibly occluded.S he is alreadly on ASA. Will start Atorvastat in.Recomme nd [facility]. Procedure explained in details to the patient. She is agreeable to proceed. The patient will be scheduled for left heart catheteriz ation, with coronary angiogram, and possible PTCA/Stent . The procedure was discussed with the patient, and risks, benefits, and alternativ e options were explained. The patient was given informatio n about heart catheteriz ation and interventi onal procedures . The patient agrees to proceed. Hyperlipidemia 72514057 E78.5 04/25/2020L ipid panel 03/27/2020 TC 155, TR 185, LDL 82, HDL 29Will add Atorvastat in on gemfibrozi l 600mg BIDCan not tolerate Fish oil or niacin. Hypertensive disorder 38 095818 I10 Elevated today. She will monitor at home and call office if remains elevated. May need to adjust her antihypert ensvies next visit if still elevated. Gastroesop hageal reflux disease 797813965 K21.9 04/25/2020S table on Rabeprazol eshe will follow-up with GI Obstructiv e sleep apnea syndrome 92071505 G47.33 04/25/2020C ompliant with nightly CPAPFollow s with pulmonolog y [id number] Kenji Lopez Office [address] [place] [address] 05/20/2020 16:01:46 05/20/2020 16:50:34 Hyperlipidemia 00772059 E78.5 Patient's hyperlipid emia is {{well-con trolled* n ot well-contr olled}} on present medical therapy. Patient was advised to eat a low-fat diet. Patient is {{tolerati ng, without difficulty ,* having side effects with}} the current medication s. I have {{not made* made the following} } changes to the current regimen. Continue low cholestero l diet. Hypertensive disorder 38 842078 I10 Patient's blood pressure is {{well-con trolled* s omewhat well-contr olled not well-contr olled}} on present medical therapy. Patient is {{tolerati ng, without difficulty ,* having side effects with}} the current medication s. I have {{not made* made the following} } changes to the current regimen. {{ Patient is advised to maintain a blood pressure diary.*}} Patient was advised to eat a low-sodium diet (2 grams sodium or less daily). Gastroesop hageal reflux disease 561118809 K21.9 Stable on Rabeprazol , follows with GI. Obstructiv e sleep apnea syndrome 85739776 G47.33 Compliant with nightly CPAP use Coronary atherosclerosis 238857072 I25.10 [facility] 05/13/2020 showed mild nonobstruc tive CAD cont medical management and risk factor modificati onn Health Concerns Section Related Observation LastModified by Organization Detai ls LastModified Time None Recorded Concern Status LastModified by Organization Details LastModified Time None Recorded Advance Directives Directive None Recorded Payers Encounter Date Sequence Insurance Name Policy Number Policy [place] Covered Member ID [place] Member ID Guarantor Name 03/11/2020 1 [place] Melodie Gonsalez Zamora [id number] Melodie Zamora 04/01/2020 2 WPS - FOR LIFE (SECONDARY TO MEDICARE) Melodie Zamora [id number] Melodie Zamora 04/01/2020 1 [place] Melodie Gonsalez Zamora [id number] Melodie Zamora 04/25/2020 2 [employer]PS - FOR LIFE (SECONDARY TO MEDICARE) Melodie Zamora [id number] Melodie Zamora 04/25/2020 1 [place] Melodie Gonsalez Zamora [id number] Melodie Zamora 05/20/2020 2 [place]PS - FOR LIFE (SECONDARY TO MEDICARE) Melodie Zamora [id number] Melodie Zamora 05/20/2020 1 [place] Melodie Zamora [id number] Melodie Zamora Notes Date Note Type Note Provider Name and Address Organization Details Recorded Time 0 text/html CC: CPHPI: 74 yt/o WF with PMH of HTN, HLD, GERD, LIBBY who was referred to our office for initial cardiovascular evaluation. Pt states that recently she experienced CP. Pt went to ER of [facility] ER and after few hours was dc home.. Pt had GERD. It was recommended to have cardiology and GI fu. She states that her CP was at rest, It was twinge , no pressure, discomfort. Located on L side of her chest, radiating to L arm. it resolved spontaneously. Never had it before. Stress test was 10 yrsago negative per pt. No previous hx of cardiac problems.. {{No known history of coronary artery disease.* History of coronary artery disease reported.}} {{No history of previous myocardial infarction.* History of previous myocardial infarction reported.}} {{No history of heart failure.* History of heart failure reported.}} {{No known valvular heart disease.* History of valvular heart disease reported.}} {{No known arrhythmia.* History of arrhythmia reported.}} {{Patient reports feeling well overall.* Patient reports not feeling well sometimes.}} {{Patient is active, but is not exercising regularly.* Patient is active, exercising regularly. Patient is not very active, and is not exercising.}} {{No chest pain. Chest pain reported.* Exertional chest pain reported. Non-exertional chest pain reported. Chest pain reported which is only sometimes associated with activity.}} {{No arm pain.* Arm pain reported.}} {{No neck pain.* Neck pain reported.}} {{No nausea and vomiting.* Nausea and vomiting reported.}} {{No diaphoresis.* Diaphoresi s reported.}} {{No shortness of breath at rest.* Shortness of breath at rest reported.}} {{No dyspnea on exertion.* Dyspnea on exertion reported.}} {{No fatigue.* Fatigue reported.}}{{No orthopnea.* Orthopnea reported.}} {{No PND.* PND reported.}} {{No leg swelling.* Leg swelling reported.}} {{No palpitation.* Palpitatio n reported.}} {{No dizziness.* Dizziness reported.}} {{No syncope .* Syncope reported.}} {{No pre-syncope.* Pre-syncop e reported.}} {{No claudication.* Claudicat ion reported.}} {{No major bleeding events.* Major bleeding event reported.}} {{No side effects from medications.* Side effects from medications reported.}} {{Complete ROS negative except as stated in the HPI. Complete ROS negative except as stated in the HPI and ROS.*}} Results from this visit, or from the past: EKG (03/11/20): NSR, poor R progression, NSST changes Kenji Kauffman [facility] 03/11/2020 17:21:01 0 text/html 04/01/2020 CC: DUNG fu HPI: 74 yt/o WF with PMH of HTN, HLD, GERD, LIBBY who was referred to our office to discuss test results. She states that she has tele visit with her and possibly she will be referred to GI for evaluation to r/o hiatal hernia or PUD. Had ECHO done in 03/13/20 showed EF 60-65%, LV relaxation is impaired. The aortic valve is mildly calcified. There is mild aortic valve stenosis. There is mild thickening of mitral valve anterior leaflet. There is a dense posterior mitral annular calcification. There is trace mitral regurgitation. There is mild tricuspid regurgitation. There is trivial pulmonic regurgitation. Stress test 03/15/2020 showed normal LV systolic function. Due to TDS cannot comment on apical perfusion. Recommend coronary CTA. Chest pain has resolved. She has GERD and was recommended to see GI after her hospital visit but has not done so yet. pt was not able to tolerate fish oil or niacin in the past. She had ECHOP long time ago which was fine per pt. Stress test was 10 years ago negative per patient. No previous history of cardiac problems. {{No known history of coronary artery disease.* History of coronary artery disease reported.}} {{No history of previous myocardial infarction.* History of previous myocardial infarction reported.}} {{No history of heart failure.* History of heart failure reported.}} {{No known valvular heart disease.* History of valvular heart disease reported.}} {{No known arrhythmia.* History of arrhythmia reported.}} {{Patient reports feeling well overall.* Patient reports not feeling well sometimes.}} {{Patient is active, but is not exercising regularly.* Patient is active, exercising regularly. Patient is not very active, and is not exercising.}} {{No chest pain.* Chest pain reported. Exertional chest pain reported. Non-exertional chest pain reported. Chest pain reported which is only sometimes associated with activity.}} {{No arm pain.* Arm pain reported.}} {{No neck pain.* Neck pain reported.}} {{No nausea and vomiting.* Nausea and vomiting reported.}} {{No diaphoresis.* Diaphoresi s reported.}} {{No shortness of breath at rest.* Shortness of breath at rest reported.}} {{No dyspnea on exertion.* Dyspnea on exertion reported.}} {{No fatigue.* Fatigue reported.}}{{No orthopnea.* Orthopnea reported.}} {{No PND.* PND reported.}} {{No leg swelling.* Leg swelling reported.}} {{No palpitation.* Palpitatio n reported.}} {{No dizziness.* Dizziness reported.}} {{No syncope .* Syncope reported.}} {{No pre-syncope.* Pre-syncop e reported.}} {{No claudication.* Claudicat ion reported.}} {{No major bleeding events.* Major bleeding event reported.}} {{No side effects from medications.* Side effects from medications reported.}} {{Complete ROS negative except as stated in the HPI. Complete ROS negative except as stated in the HPI and ROS.*}} Results from this visit, or from the past: 03/01/20:Na 139,K 3.9,Cl 104,CO2 27,GLU 120,BUN 13,Cr 0.7 .03/01/20:WBC 3.5,RBC 4.67,HGB 13.6,HCT 40.8,PLT 166. EKG (03/11/20): NSR, poor R progression, NSST changes 03/13/2020 Echocardiographic Studies :Study quality technically difficult LV chamber size is normal LV wall thickness is mild to moderatelyincreased The estimated Left ventricle ejection fraction is 60-65% LV relaxation is impaired The aortic valve is mildly calcified There is mild aortic valve stenosis There is mild thickening of mitral valve anterior leaflet Thereis dense posterior mitral annular calcification There is trace mitral regurgitation There is mild tricuspid regurgitation Thereis trivial pulmonic regurgitation XR, chest 03-01-2020 CXR 03/01/20:No active cardiopulmonary disease. Kenji Kauffman [facility], [place] - [facility] 04/01/2020 15:28:08 0 text/html 04/25/20 CC: CP fu HPI: 74 yt/o WF with PMH of HTN, HLD, GERD, LIBBY who was referred to our office to discuss test results. She states that she has tele visit with her and possibly she will be referred to GI for evaluation to r/o hiatal hernia or PUD. CTA on 04/15/20 showed severe coronary artery disease, normal LV systolic function, a heavily calcified LAD with occlusion in the paroxmal segment, diagninal brance ostially calcified with a >70% stenosis. RCA is very small mild disease. She currently denies CP, SOB, a fluttering or racing feeling/ Palpitations in her chest. Patient uses two pillows to sleep due to reflux. She is compliant with her CPAP nightly for LIBBY. *Had negative stress test done in 03/15/20 with normal LV systolic function Had ECHO done in 03/13/20 showed EF 60-65%, LV relaxation is impaired. The aortic valve is mildly calcified. There is mild aortic valve stenosis. There is mild thickening of mitral valve anterior leaflet. There is a dense posterior mitral annular calcification. There is trace mitral regurgitation. There is mild tricuspid regurgitation. There is trivial pulmonic regurgitation. Stress test 03/15/2020 showed normal LV systolic function. Due to TDS cannot comment on apical perfusion. Recommend coronary CTA. Chest pain has resolved. She has GERD and was recommended to see GI after her hospital visit but has not done so yet. pt was not able to tolerate fish oil or niacin in the past. She had ECHOP long time ago which was fine per pt. Stress test was 10 years ago negative per patient. No previous history of cardiac problems. {{No known history of coronary artery disease.* History of coronary artery disease reported.}} {{No history of previous myocardial infarction.* History of previous myocardial infarction reported.}} {{No history of heart failure.* History of heart failure reported.}} {{No known valvular heart disease.* History of valvular heart disease reported.}} {{No known arrhythmia.* History of arrhythmia reported.}} {{Patient reports feeling well overall.* Patient reports not feeling well sometimes.}} {{Patient is active, but is not exercising regularly.* Patient is active, exercising regularly. Patient is not very active, and is not exercising.}} {{No chest pain.* Chest pain reported. Exertional chest pain reported. Non-exertional chest pain reported. Chest pain reported which is only sometimes associated with activity.}} {{No arm pain.* Arm pain reported.}} {{No neck pain.* Neck pain reported.}} {{No nausea and vomiting.* Nausea and vomiting reported.}} {{No diaphoresis.* Diaphoresi s reported.}} {{No shortness of breath at rest.* Shortness of breath at rest reported.}} {{No dyspnea on exertion.* Dyspnea on exertion reported.}} {{No fatigue.* Fatigue reported.}}{{No orthopnea.* Orthopnea reported.}} {{No PND.* PND reported.}} {{No leg swelling.* Leg swelling reported.}} {{No palpitation.* Palpitatio n reported.}} {{No dizziness.* Dizziness reported.}} {{No syncope .* Syncope reported.}} {{No pre-syncope.* Pre-syncop e reported.}} {{No claudication.* Claudicat ion reported.}} {{No major bleeding events.* Major bleeding event reported.}} {{No side effects from medications.* Side effects from medications reported.}} {{Complete ROS negative except as stated in the HPI. Complete ROS negative except as stated in the HPI and ROS.*}} Results from this visit, or from the past:03/19/2020 : Na 138.K 4.0,Cl 102Co2 29,BUN 19,Creati 0.70Glucose 91,Ca 9.406:WBC 3.5,RBC 4.67,HGB 13.6,HCT 40.8,PLT 166. 03/01/20:Na 139,K 3.9,Cl 104,CO2 27,GLU 120,BUN 13,Cr 0.7 .03/01/20:WBC 3.5,RBC 4.67,HGB 13.6,HCT 40.8,PLT 166. EKG (03/11/20): NSR, poor R progression, NSST [id number] stress Test ; IMPRESSION Normal LV function Summary : Adequate stress with Lexiscan Normal LV systolic function TDS Due to TDScan not comment on apical perfusion Recommened Coronary CTA03/13/2020 Echocardiographic Studies :Study quality technically difficult LV chamber size is normal LV wall thickness is mild to moderatelyincreased The estimated Left ventricle ejection fraction is 60-65% LV relaxation is impaired The aortic valve is mildly calcified There is mild aortic valve stenosis There is mild thickening of mitral valve anterior leaflet Thereis dense posterior mitral annular calcification There is trace mitral regurgitation There is mild tricuspid regurgitation Thereis trivial pulmonic regurgitation CXR 03/01/20:No active cardiopulmonary disease. [facility] [place] [place] [facility] 04/25/2020 10:44:01 0 text/html 05/20/20 CC: chest pain fu HPI: 74 yt/o WF with PMH of HTN, HLD, GERD, LIBBY presents for follow-up. Had CATH done 05/13/2020 which showed mild nonobstructive CAD. Previously she reported occasional chest twinges. She was otherwise asymptomatic. CTA on 04/15/20 suggested severe coronary artery disease, normal LV systolic function, a heavily calcified LAD with occlusion in the paroxmal segment, diagninal branch ostially calcified with a >70% stenosis. RCA is very small mild disease. Had negative stress test done in 03/15/20 with normal LV systolic function Had ECHO done in 03/13/20 showed EF 60-65%, LV relaxation is impaired. The aortic valve is mildly calcified. There is mild aortic valve stenosis. There is mild thickening of mitral valve anterior leaflet. There is a dense posterior mitral annular calcification. There is trace mitral regurgitation. There is mild tricuspid regurgitation. There is trivial pulmonic regurgitation. Stress test 03/15/2020 showed normal LV systolic function. Due to TDS cannot comment on apical perfusion. Recommend coronary CTA. Patient was not able to tolerate fish oil or niacin in the past. She had ECHO long time ago which was fine per pt. Stress test was 10 years ago negative per patient. No previous history of cardiac problems. {{No known history of coronary artery disease.* History of coronary artery disease reported.}} {{No history of previous myocardial infarction.* History of previous myocardial infarction reported.}} {{No history of heart failure.* History of heart failure reported.}} {{No known valvular heart disease.* History of valvular heart disease reported.}} {{No known arrhythmia.* History of arrhythmia reported.}} {{Patient reports feeling well overall.* Patient reports not feeling well sometimes.}} {{Patient is active, but is not exercising regularly.* Patient is active, exercising regularly. Patient is not very active, and is not exercising.}} {{No chest pain. Chest pain reported.* Exertional chest pain reported. Non-exertional chest pain reported. Chest pain reported which is only sometimes associated with activity.}} {{No arm pain.* Arm pain reported.}} {{No neck pain.* Neck pain reported.}} {{No nausea and vomiting.* Nausea and vomiting reported.}} {{No diaphoresis.* Diaphoresi s reported.}} {{No shortness of breath at rest.* Shortness of breath at rest reported.}} {{No dyspnea on exertion.* Dyspnea on exertion reported.}} {{No fatigue.* Fatigue reported.}}{{2 pillow orthopnea reported.# No orthopnea. Orthopnea reported.}} {{No PND.* PND reported.}} {{No leg swelling.* Leg swelling reported.}} {{No palpitation.* Palpitatio n reported.}} {{No dizziness.* Dizziness reported.}} {{No syncope .* Syncope reported.}} {{No pre-syncope.* Pre-syncop e reported.}} {{No claudication.* Claudicat ion reported.}} {{No major bleeding events.* Major bleeding event reported.}} {{No side effects from medications.* Side effects from medications reported.}} {{Complete ROS negative except as stated in the HPI. Complete ROS negative except as stated in the HPI and ROS.*}} Results from this visit, or from the past:bmp (05/13/20): k 3.5,, cr 0.6,lipids (05/13/20): TG 106, TC 131, HDL 39, LDL 71,WBC (05/13/20): WBC 4.2, HGB 13.7, HCT 40.9, PLT 147 05/13/20: TG 106,TC 131,HDL 39,LDL 71.05/13/20:Na 142,k 3.5,Cl 103,Co2 28,Glu 93,Bun 16,Cr 0.608:WBC 4.2,RBC 4.68,HGB 13.7,HCT 40.9,PLT 147. COVID-19 RNA 05/10/20:not detected. 03/19/2020 : Na 138.K 4.0,Cl 102Co2 29,BUN 19,Creati 0.70Glucose 91,Ca 9.4 03/01/20:WBC 3.5,RBC 4.67,HGB 13.6,HCT 40.8,PLT 166.03/01/20:Na 139,K 3.9,Cl 104,CO2 27,GLU 120,BUN 13,Cr 0.7 .03/01/20:WBC 3.5,RBC 4.67,HGB 13.6,HCT 40.8,PLT 166. EKG (03/11/20): NSR, poor R progression, NSST [id number] stress Test ; IMPRESSION Normal LV function Summary : Adequate stress with Lexiscan Normal LV systolic function TDS Due to TDScan not comment on apical perfusion Recommened Coronary CTA03/13/2020 Echocardiographic Studies :Study quality technically difficult LV chamber size is normal LV wall thickness is mild to moderatelyincreased The estimated Left ventricle ejection fraction is 60-65% LV relaxation is impaired The aortic valve is mildly calcified There is mild aortic valve stenosis There is mild thickening of mitral valve anterior leaflet Thereis dense posterior mitral annular calcification There is trace mitral regurgitation There is mild tricuspid regurgitation Thereis trivial pulmonic regurgitation CXR 03/01/20:No active cardiopulmonary disease. Kenji Kauffman [facility], [place] - [facility] 05/20/2020 17:08:44 OBGyn Episode No OBEpisode recorded.
--- OUTSIDE RECORDS SUMMARY | 2024-10-24 12:53 | XMS_ITS | Clinical Summary ---
Author Organization [facility] Address [address] [place] [address] Care Team Providers Care Steam Room Attendant Name Role Phone Benjamín Mcmahan MD Primary Care Provider [phone] Source Comments [facility],non-[facility] Affiliates and Associated Physician Practices is amultiple site organization consisting of ambulatory clinics and hospital sitesin [place], [place], [place] and [place]. This disclosure is being madepursuant to the Care Everywhere program and may not contain all information available regarding this patient. Last updated 18.[facility] [employer] Allergies Active Allergy Reactions Criticality Noted Date Comments Caffeine Rash Medium 02/02/2011 Formaldehyde Rash Medium 02/02/2011 Latex Rash Medium 02/02/2011 bandaids and gloves, bandaids and gloves, bandaids and gloves Family History Medical History Relation Name Comments High Cholesterol Mother Hypertension Mother Relation Name Status Comments Mother Social History Tobacco Use Types Packs/Day Years Used Date Smoking Tobacco: Never Smokeless Tobacco: Never Alcohol Use Standard Drinks/Week Comments No 0 (1 standard drink = 0.6 oz pur e alcohol) Sex and Gender Information Value Date Recorded Sex Assigned at Not on file Gender Identity Not on file Sexual Orientation Not on file Plan of Treatment Health Maintenance Due Date Last Done Comments BONE DENSITY TESTING 1945 MEDICARE AWV ? 12 MONTHS 1945 HEPATITIS C SCREENING 09/15/1964 DTAP/TDAP/TD VACCINES (1 - Tdap) 1965 PNEUMOCOCCAL VACCINE 50+ (1 of 1 - PCV) 1996 ZOSTER VACCINE (1 of 2) 1996 Respiratory Syncytial Virus (RSV) Vaccine Pt: or over 60 yrs (1 - 1-dose 75+ series) 2021 COVID-19 VACCINE ( - 2023-2 5 season) 2024 INFLUENZA VACCINE (#1) 2024 DEPRESSION SCREENING 09/27/2024 HEPATITIS B VACCINE Aged Out No longe r eligible based on patient's age to complete this topic HIB VACCINE Aged Out No longer eligi ble based on patient's age to complete this topic HPV VACCINE Aged Out No longer eligi ble based on patient's age to complete this topic MENINGOCOCCAL (Group B) VACCINE Aged Out No longer eligible based on patient's age to complete this topic MENINGOCOCCAL VACCINE Aged Out No clif elaine eligible based on patient's age to complete this topic Care Teams Steam Room Attendant Relationship Specialty Start Date End Date Benjamín Mcmahan MD [address] [place], [place] [id number] PCP - General 01/14/11
[2024-10-24 13:28] LABS: Influenza A QL RT-PCR Negative (Negative); Influenza B QL RT-PCR Negative (Negative); RSV RNA, RT-PCR Negative (Negative); SARS-CoV-2 RNA PCR Negative (Negative)
== END 2024-10-24 11:50 | disposition home or self-care (01) ==
PROVIDERS: PCP Family Medicine; Visit Provider Family Medicine
DX: U07.1 COVID-19 (principal); J06.9 Acute upper respiratory infection, unspecified
CPT/HCPCS: 87081; 87637

== ENCOUNTER 2024-12-04 09:04 | Outpatient (CLI) | payer MEDICARE, OTHER, SELFPAY ==
[2024-12-04 09:18] LABS: Basophils Percent Auto 0.4 % (0.2-1.2); Eosinophils Percent Auto 0.9 % (0-4.4); Hematocrit 36.5 % (37.0-47.0); Hemoglobin 11.4 g/dL (12.0-15.0); Immature Granulocyte Absolute 0.01 K/mm3 (0.00-0.031); Immature Granulocyte Percent A 0.4 % (0-0.5); Lymphocytes Absolute Auto 0.88 K/mm3 (0.9-3.2); Lymphocytes Percent Auto 39.3 % (18.3-44.2); Mean Corpuscular HGB Conc 31.2 g/dl (32-36); Mean Corpuscular Hemoglobin 26.8 pg (26-34); Mean Corpuscular Volume 85.9 fl (80-100); Mean Platelet Volume 7.7 fl (7.4-10.4); Monocytes Absolute Auto 0.2 K/mm3 (0.1-0.6); Monocytes Percent Auto 8.9 % (2.6-8.5); Neutrophils Absolute Auto 1.1 K/mm3 (1.3-6.7); Neutrophils Percent Auto 50.1 % (45.5-73.1); Platelet Count Result 120 k/mm3 (150-375); Red Blood Count 4.25 M/mm3 (4.2-5.4); Red Cell Distribution Width 14.5 % (11.5-14.5); White Blood Count 2.2 K/mm3 (4.5-10.0)
[2024-12-04 10:17] LABS: Anion Gap 7 mmol/L (4-12); Blood Urea Nitrogen 16 mg/dL (7-17); Calcium 9.3 mg/dL (8.4-10.2); Carbon Dioxide 29 mmol/L (22-30); Chloride 106 mmol/L (98-107); Estimated Glomerular Filt Rate > 60; Glucose 113 mg/dL (65-110); Potassium 4.2 mmol/L (3.4-5.0); Sodium 142 mmol/L (137-145)
[2024-12-04 10:57] LABS: Iron 58 ug/dL (37-170)
[2024-12-04 11:12] LABS: Percent Iron Saturation 12 % (20-50)
[2024-12-04 11:23] LABS: Folic Acid 13.3 ng/mL (2.76->20)
[2024-12-04 11:41] LABS: Ferritin 9.66 ng/mL (11.1-264)
== END 2024-12-04 09:05 | disposition home or self-care (01) ==
LOC: ANHLAB 09:06
PROVIDERS: PCP Family Medicine; Visit Provider Internal Medicine Hematology & Oncology
DX: D64.9 Anemia, unspecified (principal); D69.59 Other secondary thrombocytopenia
CPT/HCPCS: 36415; 80048; 82607; 82728; 82746; 83540; 83550; 85025

== ENCOUNTER 2025-01-16 11:07 | Outpatient (CLI) | payer MEDICARE, OTHER, SELFPAY ==
--- NOTE | ~2025-01-16 | XR_ITS ---
XR sacrum coccyx min 2V Ordering provider: Tiny Gonzalez MD History: . M53.3 - Sacrococcygeal disorders, not elsewhere classified . Comparison: None. FINDINGS: BONES: No acute fracture or dislocation. JOINTS: The sacroiliac joint spaces shows bilateral sacroiliacs. Bilateral moderate hip osteoarthriti c changes more on the left side. Pubic symphysitis. Degenerative changes of the spine. SOFT TISSUES: Normal. IMPRESSION: No acute osseous abnormality sacrum. 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 Moderate osteoarthritic changes of both hi ps. Pubic symphysitis. Degenerative changes of the spine. Reviewed, dictated and finalized at location A. IMPRESSION: No acute osseous abnormality sacrum. 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 Moderate osteoarthri tic changes of both hips. Pubic symphysitis. Degenerative changes of the spine.
== END 2025-01-16 11:08 | disposition home or self-care (01) ==
LOC: MICIMG 11:09
PROVIDERS: PCP Family Medicine; Visit Provider Family Medicine
DX: M47.818 Spondylosis without myelopathy or radiculopathy, sacral and sacrococcygeal region (principal); M16.0 Bilateral primary osteoarthritis of hip; M85.30 Osteitis condensans, unspecified site
CPT/HCPCS: 72220

== ENCOUNTER 2025-03-13 11:11 | Outpatient (CLI) | payer MEDICARE, OTHER, SELFPAY ==
[2025-03-13 11:24] LABS: Hematocrit 39.6 % (37.0-47.0); Mean Corpuscular HGB Conc 32.8 g/dl (32-36); Mean Corpuscular Hemoglobin 29.2 pg (26-34); Platelet Count Result 157 k/mm3 (150-375); Red Blood Count 4.45 M/mm3 (4.2-5.4); Red Cell Distribution Width 14.5 % (11.5-14.5); White Blood Count 3.6 K/mm3 (4.5-10.0)
--- OUTSIDE RECORDS SUMMARY | 2025-03-13 12:18 | XMS_ITS | Data Portability ---
Author Organization [facility] [place] Address [address] [place] [address] Care Team Providers Care Cup Machine Operator Name Role Phone KAI JARA Primary Care Provider Assessment Encounter Date Assessment Date Assessment LastModified by Organization Details LastModified Time 03/08/2020 03/08/2020 Annual gynecological exam performed. Patient will come back in a year unless there are new symptoms. [email or web address] Not available 03/08/2020 11:58:02 06/20/2022 06/20/2022 Annual gynecological exam performed. Patient will come back in a year unless there are new symptoms. [email or web address] Not available 06/20/2022 10:10:52 12/29/2024 12/29/2024 Annual gynecological exam performed. Patient will come back in a year unless there are new symptoms. [email or web address] Not available 12/29/2024 10:05:37 Plan of Treatment Reminders Order Date Submit Date Provider Last Modified By Organization Details Last Modified Time Details Appointments None recorded. Lab None recorded. Referral None recorded. Procedures None recorded. Surgeries None recorded. Imaging MAMMO, screening, bilateral 2021 022 [email or web address] [facility], [address], [place], [address], 21:45:32 Medication Orders None recorded. Patient TargetsNo targets recorded. Patient InstructionsNo instructions recorded. Reason for Referral None Reported. Results Created Date Observation Date Name Description Value Unit Range Abnormal Flag Note LastModifiedBy Organization Detail LastModifiedTime 04/18/20 20 MAMMO , scree darrick, bilat eral No observ ation record ed. DOMINIQUE Not Available 2019 11:23:57 09/08/20 22 09/07/2022 MAMMO , alisson hollingsworthnarayanl No observ ation record ed. [facility] [address], [place], [address], 09/17/2022 12:46:04 Result Notes None recorded. Procedures Surgical History Date Name Laterality Status Provider Name and Address Organization Details Recorded Time 024 Date of Last Colonoscopy completed [facility] 12/29/2024 10:10:38 024 Date of Last Mammogram completed [facility] 12/29/2024 10:09:49 022 Date of Last Pap Smear completed [facility] 06/20/2022 10:23:43 018 arthroplasty of knee completed [facility] 03/08/2020 10:26:29 012 Dilation and Curettage completed [facility] 06/20/2022 10:22:32 010 Colonoscopy completed [facility] 03/08/2020 10:28:54 002 Carpal tunnel surgery completed [facility] 06/20/2022 10:19:23 000 procedure on back completed [facility] 06/20/2022 10:22:44 995 hemorrhoidectomy completed [facility] 06/20/2022 10:22:57 986 ligation of bilateral fallopian tubes completed [facility] 03/08/2020 10:27:20 Imaging Results None recorded. Procedure Notes None recorded. Medical Equipment None Reported. Allergies Allergen ID Allergen Name Allergen Category Reaction Reaction Severity Criticality Documentation Date Start Date Code Code System Note Provider Name and Address Organization Details Recorded Time 35518 Non-stero idal anti-infl ammatory agent (product) medicatio n Not available Not available Not available 12/29/2024 86404 005 SNOMED Liseth Blackwell [facility] 10:07:27 Medications Name Sig Start Date Stop Date Status Note LastModified by Organization Details LastModified Time amoxicill in 500 mg capsule TK FOUR CS PO 1 HOUR B DAPP 12/29 completed Not Available Not Available Not Available rabeprazo le 20 mg tablet,de layed release Take 1 tablet every day by oral route. active Not Available Not Available No t Available atorvasta tin 10 mg tablet active Not Available Not Available Not Available cephalexi n 250 mg capsule TAKE 1 CAPSULE BY MOUTH EVERY 8 HOURS FOR 7 DAYS 12/29 completed Not Available Not Available Not Available Anucort-H C 25 mg supposito ry UNWRAP AND INSERT 1 SUPPOSIT ORY RECTALLY EVERY DAY NEEDED 12/29 completed Not Available Not Available Not Available Diflucan 150 mg tablet take 1 tablet by oral route once 06/20 completed Prescrib ed Elsewher e: No Locat ion: [facility] M odify By: lbillhar tz Encou nter DateTime : 05/09/20 19 10:00:00 AM Not Available Not Available Not Available Vitamin C 500 mg chewable tablet active Not Available Not Available Not Available amoxicill in 500 mg tablet TAKE FOUR TS PO 1 HOUR B DAPP 12/29 completed Not Available Not Available Not Available [...] completed Not Available Not Available Not Available iron active Not Available Not Availa ble Not Available pepsin (bulk) 06/20 completed Not Available Not Available Not Available losartan 06/20 completed Not Available Not Available Not Available gemfibroz il 06/20 completed Not Available Not Available Not Available Vitamin D3 06/20 completed Not Available Not Available Not Available MetroCrea m 06/20 completed Not Available Not Available Not Available rabeprazo le 06/20 completed Not Available Not Available Not Available Restasis 06/20 completed Not Available Not Available Not Available Vitamin D3 100 mcg (4,000 unit) capsule 06/20 completed Not Available Not Available Not Available Vitals Date Recorded Body height Body mass index (BMI) Body weight Systolic blood pressure Diastolic blood pressure Provider Name and Address Organization Details Last Updated DateTime 12/29/2024 163.2 cm 28.2 kg/m2 91238.18 g 131 mm[Hg] 68 mm[Hg] Liseth Blackwell [facility] 5 10:06:54 Date Recorded Body height Body mass index (BMI) Body weight Systolic blood pressure Diastolic blood pressure Provider Name and Address Organization Details Last Updated DateTime 03/08/2020 1981.2 cm 0.2 kg/m2 10323.07 g 114 mm[Hg] 70 mm[Hg] Stephani Churchill [facility] 0 12:07:25 Date Recorded Body height Body mass index (BMI) Body weight Systolic blood pressure Diastolic blood pressure Provider Name and Address Organization Details Last Updated DateTime 06/20/2022 163.2 cm 27.6 kg/m2 62308.96 g 120 mm[Hg] 68 mm[Hg] Love Abbott [facility] 10:11:12 Social History Question Answer Notes LastModified by Organizat ion Details LastModified Time Tobacco Smoking Status Never Smoker Love Abbott anais, [facility] 06/20/2022 10:11:38 Do You Have An Advance Directive? No [email or web address] Information n ot available 06/20/2022 Are You Blind Or Do You Have Difficulty Seeing? No [email or web address] Information n ot available 06/20/2022 What Is Your Level Of Caffeine Consumption? None [email or web address] Information not available 06/20/2022 How Much Tobacco Do You Chew? None [email or web address] Information not available 06/20/2022 In The 14 Days Before Symptom Onset, Have You Had Close Contact With A Laboratory-confirm ed COVID-19 While That Case Was Ill? No [email or web address] Information n ot available 06/20/2022 In The 14 Days Before Symptom Onset, Have You Had Close Contact With A Person Who Is Under Investigation For COVID-19 While That Person Was Ill? No [email or web address] Information not available 06/20/2022 Have You Been To An Area Known To Be High Risk For COVID-19? No [email or web address] Information not available 06/20/2022 Are You Deaf Or Do You Have Serious Difficulty Hearing? No [email or web address] Information not available 06/20/2022 What Type Of Diet Are You Following? REGULAR [email or web address] Information n ot available 06/20/2022 What Is The Highest Grade Or Level Of School You Have Completed Or The Highest Degree You Have Received? [id number] [email or web address] Information not available 12/29/2024 Are There Any Guns Present In Your Home? No [email or web address] Information not available 06/20/2022 Do You Use Protection During Sex? No [email or web address] Information not available 06/20/2022 Do You Use Your Seat Belt Or Car Seat Routinely? Yes [email or web address] Information not available 06/20/2022 Do You Have Smoke And Carbon Monoxide Detectors In Your Home? Yes [email or web address] Information not available 06/20/2022 How Much Tobacco Do You Smoke? No [email or web address] Information not available 06/20/2022 Do You Use Sunscreen Routinely? Yes [email or web address] Information not available 06/20/2022 Has Tobacco Cessation Counseling Been Provided? No [email or web address] Information not available 06/20/2022 Have You Used IV Drugs? No [email or web address] Information not available 06/20/2022 Do You Have Difficulty Walking Or Climbing Stairs? No [email or web address] Information not available 06/20/2022 Sex: Unknown Functional Status Question Answer Note LastModified by Organizat ion Details LastModified Time Do you use any illicit or recreational drugs? No [email or web address] Information not available 06/20/2022 Do you or have you ever used any other forms of tobacco or nicotine? No [email or web address] Information not available 06/20/2022 What is your level of alcohol consumption? None [email or web address] Information not available 06/20/2022 Are you able to walk? YESWOREST [email or web address] Information not available 06/20/2022 Are you able to care for yourself? Yes [email or web address] Information n ot available 06/20/2022 What is your occupation? Retired [email or web address] Information not available 06/20/2022 Do you have difficulty dressing or bathing? No [email or web address] Information not available 06/20/2022 What is your exercise level? Moderate [email or web address] Information not available 06/20/2022 Mental Status Question Answer Note LastModified by Organization D etails LastModified Time Do you feel stressed (tense, restless, nervous, or anxious, or unable to sleep at night)? [id number] [email or web address] Information not available 06/20/2022 Family History Relationship Description Onset Age of this Age Resolved Age Notes LastModified by Organization Details LastModified Time Father Malignant neoplasm of lung smoker 69 y/o jgumber Not available 03/08/2020 10:25:32 Mother Myocardial infarction [email or web address] Not available 03/08 10:25:55 Notes:Father: Cancer, lung M other: Myocardial infarction Medical History Condition Response Allergies (Food, seasonal, environmental ) N Other N Breast Cancer N Drug/Latex Allergies/Reactions N Blood Transfusion N Dermatologic Disorders Y Lung Disease N Defects or Inherited Disease N Breast Problem N Gestational Diabetes N Hematologic disorders N Anesthesia Complications N History of STI N Deep Vein Thrombosis Y Polycystic ovary syndrome N Anxiety Disorder N [...] Y Thrombophilias N Gynecological History Statement/Question Response Abnormal Pap N Date of Last Mammogram 12/27/2023 Date of LMP 09/27/2010 STIs/STDs N HPV Vaccine N Current Control Method Tubal Ligat ion Age at First Child 24 If Post Menopausal, Age at Menopause 66 Date of Last Colonoscopy 08/27/2024 Sexually Active? N Menses Monthly N Date of DEXA bone scan Age of first menstrual cycle 13 Date of Last Pap Smear 06/20/2022 Sexual Problems? N LMP Unknown Obstetrics History GPAL:G 2 P 2 0 0 2 Type Value Full Term 2 Living 2 Total 2 Past Encounters Encounter ID Performer Location Encounter Start Date Encounter Closed Date Diagnosis/Indication Diagnosis SNOMED-CT Code Diagnosis ICD10 Code Diagnosis Note [id number] [address] [address] 03/08/2020 11:53:18 03/08/2020 12:43:25 Gynecologic examination 30329449 Z01.419 Take Calcium with Vitamin D 12-1500mg daily. Do monthly self breast exams. It is advised to get annual flu shot in the fall and she could obtain at [facility] or [facility] clinic. If you haven't received the Tdap [...] Mammo ordered CBE done Decline std screen [id number] [facility] [address] [address] 06/20/2022 09:59:03 06/20/2022 10:39:23 Gynecologic examination 26100107 Z01.419 Take Calcium with Vitamin D 12-1500mg daily. Do monthly self breast exams. It is advised to get annual flu shot in the fall and she could obtain at [facility] or [facility] care clinic. If you haven't received the Tdap [...] Screen [facility] P[facility]Mamm[facility] Screening mammography 24 688233 Z12.31 [id number] ALESSANDRO Nicole [facility] [address] [address] 12/29/2024 09:59:07 12/29/2024 10:31:44 Gynecologic examination 50465491 Z01.419 WWEpostmen opausalPap - no further paps indicatedS TI screen - declinedMa mmogram - UTD/PCPCol on cancer screening - UTD/PCPDex a - she will check with PCP on when she is due nextRoutin e labs - UTD/PCPRTC in 1 yr or sooner if needed Do monthly self breast exams.It is advised to get annual flu shot in the fall and she could obtain at local pharmacy. If you haven't received the Tdap vaccine in the last 10 years you should obtain one as well.Have mammogram yearly, bone density every 2-3 years and stay up to date on colon cancer screening. Engage in regular exercise. Avoid tobacco and illicit drugs. This lifestyle behavior pattern will lead to less health conditions and longer life span. If BMI greater than 25 dietary consult advised.Qu estions have been answered. Health Concerns Section Related Observation LastModified by Organization Detai ls LastModified Time None Recorded Concern Status LastModified by Organization Details LastModified Time None Recorded Advance Directives Directive N: Payers Insurance Date Sequence Insurance Name Policy Number Policy [place] Covered Member ID [place] Member ID Guarantor Name 01/01/2025 2 FOR LIFE ( - MEDICARE SUPPLEMENT) Doc Zamora [id number] Melodie Zamora 12/29/2024 1 [place] Melodie Zamora [id number] Melodie Zamora Notes Date Note Type Note Provider Name and Address Organization Details Recorded Time 03/08/2020 text/html Annual GYNReport ed bypatient.History:n o gynecologic complaints Menstrual cycle:Normal menses Urinary symptoms:No hematuria; No incontinence Vulva:No genital lesion Vagina:Normal vaginal discharge Breast:No breast pain; No breast lump; No nipple discharge Current Contraception:postm enopausal Sexual complaints:No sexual complaints; No pain during intercourse; Normal libido Menopausal Symptoms:No menopausal symptoms; Normal vaginal lubrication Psychological symptoms:No depression; No anxiety; No PMDD Preventive measures:Encourage self breast examination; Encourage regular exercise; Encourage no tobacco use; Needs to schedule mammogram; Up to date on colonoscopy screening; Dexa due 2020 ALESSANDRO Pringle-[facility] [address], [place], [address], [facility] 03/08/2020 13:02:31 06/20/2022 text/html Annual Almond Blancher Post-MenopausalRepo rted bypatient.Menopausa l Symptoms:no menopausal symptoms; normal vaginal lubrication Vaginal [...] to schedule mammogram; history of recent colonoscopy ALESSANDRO Pringle- [address], [place], [address], [facility] 06/20/2022 10:36:52 12/29/2024 text/html Annual Almond Blancher Post-MenopausalRepo rted bypatient.Menopausa l Symptoms:no menopausal symptoms; normal vaginal lubrication Vaginal [...] encourage regular exercise; encourage no tobacco use; mammogram performed within the past year; history of recent colonoscopyNotes:79 yo wwepostmenopausal, denies any PMBno h/o abnormal papsmammogram UTD/PCPcolonoscopy UTD/PCPdexa, unsure when last had, ordered by PCP ALESSANDRO Nicole [address], [place], [address], [facility] 12/29/2024 10:29:33 OBGyn Episode Ob Episode Information Episode Created Date Number of Fetuses Patient Bloodtype Patient rh Status Prepregnancy Weight lbs Domestic Partner Domestic Partner Phone Father Name Press Room Supervisor Status 03/08/20 20 1 CLOSED Fetus Data [...] Domestic Partner Domestic Partner Phone Father Name Press Room Supervisor Status 03/08/20 20 1 CLOSED Fetus Data [...]
--- OUTSIDE RECORDS SUMMARY | 2025-03-13 12:18 | XMS_ITS | Clinical Summary ---
Author Organization [facility] Address [address] [place] [address] Care Team Providers Care Anchor Operator Name Role Phone Tiny Gonzalez MD Primary Care Provider [phone] Yuri Rockwell MD Unavailable [phone] Allergies Active Allergy Reactions Criticality Noted Date Comments Caffeine Other (See comments) Medium 02/02/2011 Increases heart rate. Formaldehyde Rash Medium 02/02/2011 Latex Rash Medium 02/02/2011 bandaids and gloves, bandaids and gloves, bandaids and gloves Nsaids (Non-Steroidal Anti-Inflammatory Drug) Other (See comments) Low 11/13/2019 Stomach ulceration Medications Restasis 0.05 % ophthalmic emulsion 0 [...] lutein-zeaxanth in 20-4 mg capsule 3 Active cyanocobalamin, vitamin B-12, (VITAMIN B-12 ORAL) Take by mouth Active Active Problems Problem Noted Date Diagnosed Date Sensation of fullness in right ear 12/12/2024 Assessment & Plan (12/12/2024 9:56 AM CDT): I think this is likely due to the impacted cerumen. She did note some improvement. I told her to call there should be continuing problems. Impacted cerumen of right ear 12/12/2024 Assessment & Plan (12/12/2024 9:56 AM CDT): This was all removed under the microscope without difficulty. Tinnitus of right ear 04/23/2023 Sensorineural hearing [...] recommendations. Assessment & Plan (12/01/2022 9:10 PM GENERAL OFFICE CLERK): I talked with her about treating her [...] us. 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 06/07/2020 Assessment & [...] Encounters Date Type Department Care Team Description 12/12/2024 9:45 AM CDT Office Visit [facility] Otolaryngology [address] [place] [phone] Yuri Rockwell MD Sensation of fullness in right ear (Primary Dx); Impacted cerumen of right ear 12/12/2024 9:15 AM CDT Procedure visit [facility] Otolaryngology [address] [place] [phone] Penelope Briggs Dysfunction of right eustachian tube (Primary Dx) from Last 3 Months Immunizations Immunization Administration Dates Next Due Moderna SARS-CoV-2 Monovalent [...] on file Legal Sex Female 8:50 PM GENERAL OFFICE CLERK Gender Identity Not on file Sexual Orientation Not on file Obstetrics History Last Filed Vital Signs Vital Sign Reading Time Taken Comments Blood Pressure 122/62 07/30/2023 8:45 AM CDT Pulse 74 07/30/2023 8:45 AM CDT Temperature 36.9 C (98.5 F) 12/24/2020 8:43 AM CDT Respiratory Rate 18 12/12/2024 9:29 AM CDT Oxygen Saturation 94% 07/30/2023 8:45 AM CDT Inhaled Oxygen Concentration - - Weight 71.7 kg (158 lb) 12/12/2024 9:29 AM CDT Height 165.1 cm (5' 5) 12/12/2024 9:29 AM CDT Body Mass Index 26.29 12/12/2024 9:29 AM CDT Plan of Treatment Health Maintenance Due Date Last Done Comments Depression Screening 1945 Fall Risk Assessment 1945 Hepatitis C Screening 1945 Osteoporosis Screening-Bone Density Scan 1945 Hepatitis B Screening 1964 Well Visit 65+ 2011 Zoster Vaccine (2 of 3) 12/04/2013 10/09/2013 DTaP/Tdap/Td Vaccine (2 - Td or Tdap) 08/04/2022 08/04/2012, 08/04/2012 Covid-19 Vaccine (3 - 2023-2 5 season) 2024 08/06/2021, 12/06/2020 Influenza Vaccine (Season Ended) 2025 07/05/2019, 07/21/2018, 07/30/2017, Additional history exists Pneumococcal vaccine 65+ Completed 016, 09/08/2012, 09/08/2011 Insurance MEDICARE FOR LIFE MEDICARE FOR LIFE MEDICARE [facility] FOR LIFE Care Teams Anchor Operator Relationship Specialty Start Date End Date Tiny Gonzalez MD PCP - General Family Medicine 02/17/21 Yuri Rockwell MD [address] [place] [address] Referring Physician Otolaryngology 10/10/21
--- OUTSIDE RECORDS SUMMARY | 2025-03-13 12:18 | XMS_ITS | Referral Summary ---
Author Organization [facility] Address [address] [place] [address] Care Team Providers Care Dairy Farmer Name Role Phone Tiny Gonzalez MD Primary Care Provider [phone] Yuri Rockwell MD Unavailable Encounters Date Type Department Care Team Description 12/12/2024 9:15 AM CDT Procedure visit [facility] Otolaryngology [address] [place] [phone] Penelope Briggs Dysfunction of right eustachian tube (Primary Dx) 12/12/2024 9:45 AM CDT Office Visit [facility] Otolaryngology [address] [place] [phone] Yuri Rockwell MD Sensation of fullness in right ear (Primary Dx); Impacted cerumen of right ear from Last 3 Months Allergies Active Allergy [...] recommendations. Assessment & Plan (12/01/2022 9:10 PM FUR PLUCKER): I talked with her about treating her [...] us. Assessment & Plan (12/01/2022 9:08 PM FUR PLUCKER): She is had some pretty minor problems [...] giddiness 10/16/2021 Coronary artery disease invo lving [place] coronary artery of [place] heart without angina pectoris 06/07/2020 Assessment & [...] remaining on low intensity statin therapy. Immunizations Immunization Administration Dates Next Due Moderna SARS-CoV-2 Monovalent Vaccination (12+ Y RS) 08/06/2021,12/06/2020 Social History Tobacco Use Types Packs/Day Years Used Date Smoking Tobacco: Never Smokeless Tobacco: Never Comments Unknown Sex and Gender Information Value Date Recorded Sex Assigned at Not on file Legal Sex Female 8:50 PM FUR PLUCKER Gender Identity Not on file Sexual Orientation [...] 12/12/2024 9:29 AM CDT Plan of Treatment Not on file Insurance MEDICARE [employer] [facility] MEDICARE FOR LIFE MEDICARE FOR LIFE Care Teams Dairy Farmer Relationship Specialty Start Date End Date Tiny Gonzalez MD PCP - General Family Medicine 02/17/21 Yuri Rockwell MD [address] [place] [address] Referring Physician Otolaryngology 10/10/21
--- OUTSIDE RECORDS SUMMARY | 2025-03-13 12:18 | XMS_ITS | Data Portability ---
Author Organization [place] - [facility] OFFICE Address [address] [place] [id number] Care Team Providers Care Fire Loss Prevention Engineer Name Role Phone OSMAN YO Primary Care Provider Assessment No assessment recorded. Plan of Treatment Reminders Order Date Submit Date Provider Last Modified By Organization Details Last Modified Time Details Appointments None recorded. Lab None recorded. Referral None recorded. Procedures None recorded. Surgeries None recorded. Imaging electrocar diogram 2019 DOMINIQUE Not available 0 16:12:14 Medication Orders atorvastat in 40 mg tablet 2019 020 INTERFACE [facility], [address] [place] [address], [address], 0 17:07:12 atorvastat in 10 mg tablet 2019 020 [id number], [address], [place], [id number], 0 17:06:18 Patient TargetsNo targets recorded. Patient Instructions Encounter Date Encounter Id Patient Instructions Last Modified By Organization Details Last Modified Time 03/11/2020 [id number] chest pain: care instructions [email or web address] Not available 03/11/2020 17:20:03 high cholesterol : care instructions [email or web address] Not available 03/11/2020 17:20:03 04/01/2020 [id number] chest pain: care instructions [email or web address] Not available 04/01/2020 15:27:14 sleep apnea: car e instructions [email or web address] Not available 04/01/2020 15:27:14 gastroesophageal reflux disease (GERD): care instructions [email or web address] Not available 04/01/2020 15:27:14 high cholesterol : care instructions [email or web address] Not available 04/01/2020 15:27:14 04/25/2020 [id number] chest pain: care instructions mzabad Not available 04/25/2020 09:38:14 sleep apnea: car e instructions mzabad Not available 04/25/2020 09:38:15 gastroesophageal reflux disease (GERD): care instructions mzabad Not available 04/25/2020 09:38:15 high cholesterol : care instructions mzabad Not available 04/25/2020 09:38:15 Exercise advised Low cholesterol diet advised Low sodium diet advised. [email or web address] Not available 04/25/2020 09:26:11 Scribed by Nolan Zhao, MSN, [employer], [employer] [email or web address] Not available 04/25/2020 09:54:31 05/20/2020 [id number] sleep apnea: car e instructions [email or web address] Not available 05/20/2020 17:07:10 gastroesophageal reflux disease (GERD): care instructions [email or web address] Not available 05/20/2020 17:07:10 high cholesterol : care instructions [email or web address] Not available 05/20/2020 17:07:10 Exercise advised Low cholesterol diet advised Low sodium diet advised [email or web address] Not available 05/20/2020 16:08:34 Scribed by Jc Johnson [employer] Not available 05/20/2020 16:08:16 Reason for Referral [...] contr ast No observ ation record ed. [email or web address] Not Available 05/23 12:45:08 Result Notes Documentation Provider Name and Address Organization Details Recorded Time Cmp, Serum Or Plasma : 03/01/20:Na 139,K 3.9,Cl 104,CO2 27,GLU 120,BUN 13,Cr 0.7 . Mishel manzo [place] [facility] 03/13/2020 16:44:01 Cbc W/ Diff : 03/01/20:WBC 3.5,RBC 4.67,HGB 13.6,HCT 40.8,PLT 166. Mishel manzo [place] [facility] 03/13/2020 16:44:01 Lipid Panel, Blood : 03/27/20:TC 155,TG 185,LDL 82,HDL 29 . Mishel manzo [place] [facility] 04/28/2020 14:17:28 Sars Cov 2 Rna (covid-19), Ql, Pe Teacher-pcr, Respiratory Specimen : COVID-19 RNA 05/10/20:not detected. Mishel manzo [place] [facility] 05/11/2020 15:51:10 Cbc W/ Diff : 05/13/20:WBC 4.2,RBC 4.68,HGB 13.7,HCT 40.9,PLT 147. Mishel manzo [place] [facility] 05/13/2020 13:29:33 Cmp, Serum Or Plasma : 05/13/20:Na 142,k 3.5,Cl 103,Co2 28,Glu 93,Bun 16,Cr 0.6, [facility] 05/13/2020 13:35:22 Lipid Panel, Blood : 05/13/20: TG 106,TC 131,HDL 39,LDL 71. [facility] 05/13/2020 13:35:38 Abo Group + Rh Type, Blood : 05/13/20: Blood type o pos,AB negative. Mishel Veras [facility] 05/13/2020 13:35:48 Problems Name Problem SNOMED Code Status Onset Date Resolution Date Notes Provider Name and Address Organization Details Recorded Time Hypertensiv e disorder 65634500 Active 2019 [facility] 0 16:54:59 Hyperlipide ramon 85666463 Active 2019 [facility] 0 16:55:26 Obstructive sleep apnea syndrome 41263295 Active 2019 cpap [facility] 0 16:55:51 Gastroesoph ageal reflux disease 862929668 Active 2019 [facility] 0 16:56:16 Chest pain 69428560 Completed 201905/20/2020 [facility] 0 17:06:09 Coronary atheroscler osis 533215331 Active 2019 [facility] 0 17:04:17 Problem Notes None recorded. Medical Equipment None Reported. [...] Not Available No t Available Fluad Quad 5034-9124( 65yr up)(PF) 60 mcg (15 mcg x 4)/0.5mL IM syringe active Not Available Not Available N ot Available Vitals Date Recorded Body height Body mass index (BMI) Body weight Heart rate Oxygen saturation Oxygen saturation in Arterial blood by Pulse oximetry Respiratory rate Systolic blood pressure Diastolic blood pressure Provider Name and Address Organization Details Last Updated DateTime 0 165.1 cm 29.1 kg/m2 65600.6 6 g 73 /min 97 % 97 % 18 /min 116 mm[Hg] 64 mm[Hg] MAGNOLIA WARNER [facility] 0 16:33:45 Date Recorded Body height Body mass index (BMI) Body weight Heart rate Respiratory rate Oxygen saturation Oxygen saturation in Arterial blood by Pulse oximetry Systolic blood pressure Diastolic blood pressure Provider Name and Address Organization Details Last Updated DateTime 0 165.1 cm 29.1 kg/m2 48896.6 6 g 71 /min 18 /min 97 % 97 % 140 mm[Hg] 80 mm[Hg] [facility] 0 14:53:37 Date Recorded Body height Body mass index (BMI) Body weight Heart rate Respiratory rate Oxygen saturation Oxygen saturation in Arterial blood by Pulse oximetry Systolic blood pressure Diastolic blood pressure Provider Name and Address Organization Details Last Updated DateTime 0 165.1 cm 28.8 kg/m2 95887.4 8 g 61 /min 18 /min 98 % 98 % 156 mm[Hg] 78 mm[Hg] Maribeth Domínguez [facility] 0 09:13:18 Date Recorded Body height Body mass index (BMI) Body weight Heart rate Respiratory rate Oxygen saturation Oxygen saturation in Arterial blood by Pulse oximetry Systolic blood pressure Diastolic blood pressure Provider Name and Address Organization Details Last Updated DateTime 0 165.1 cm 27.6 kg/m2 82427.3 3 g 74 /min 18 /min 96 % 96 % 140 mm[Hg] 80 mm[Hg] [facility] 16:[facility] Social History None recorded. Functional Status None recorded. Mental Status None recorded. Family History Relationship Description Onset Age of this Age Resolved Age Notes LastModified by Organization Details LastModified Time Mother Myocardial infarction 50 [email or web address] Not available 03/11 16:56:42 [facility] Not available 2019 16:56:51 Sister Cerebrovascu lar [facility] Not available 16:57:03 Maternal Grandmother [facility]ocardial [facility] Not available 03/11 16:57:25 Medical History Condition Response Hyperlipidemia Y Sleep Apnea Y GERD/Reflux Y Hypertension Y Gynecological HistoryNo gynecological history recorded. Obstetrics History GPAL:G 0 P 0 0 0 0 Past Encounters Encounter ID Performer Location Encounter Start Date Encounter Closed Date Diagnosis/Indication Diagnosis SNOMED-CT Code Diagnosis ICD10 Code Diagnosis Note [id number] MD Ari Loza Office [address] [place] [address] 03/11/2020 15:45:55 03/11/2020 17:06:16 Chest pain 16334253 R07.9 Patient presents with chest pain with atypical features. Given the history, exam findings and intermedia te cardiac risk factors, I feel additional investigat ion is warranted. I have made arrangemen ts in the near future for a pharmacolo gic stress nuclear test due to reduced functional capacity or conduction abnormalit y. The procedure was discussed with the patient, and risks, benefits, and alternativ e options were explained. Appropriat e labwork has not been performed recently, therefore I have made arrangemen ts for further testing. I have asked the patient to curtail exercise and activities until our investigat ion is complete. I have made the following adjustment s to the present medical regimen. Patient has been started on daily aspirin. ECHO Hyperlipidemia 23826958 E78.5 will obtain FLP. cont current meds Hypertensive disorder 38 375075 I10 Patient's blood pressure is well-contr olled on present medical therapy. Patient is tolerating , without difficulty , the current medication s. I have not made changes to the current regimen. Patient is advised to maintain a blood pressure diary. Cont low Na diet. [id number] [facility]ogi Randle [facility] [address] [place] [address] 04/01/2020 14:44:43 04/01/2020 15:22:44 Chest pain 91541647 R07.9 Resolved Stress test 03/15/2020 showed normal LV systolic function. Due to TDS cannot comment on apical perfusion. Recommend coronary CTA. Findings were d/w pt and her family.Sin ce pt had\s claustopho nadine she prefers to avoid CTA if possible. Hyperlipidemia 10968049 E78.5 Lipid panel 03/27/2020 TC 155, TR 185, LDL 82, HDL 29on gemfibrozi lCan not tolerate Fish oil or niacin. Not interested in starting statin at this pointcont diet Hypertensive disorder 38 637656 I10 Patient's blood pressure is well-contr olled on present medical therapy. Patient is tolerating , without difficulty , the current medication s. I have not made changes to the current regimen. Patient is advised to maintain a blood pressure diary. Cont low Na diet. Gastroesop hageal reflux disease 184813446 K21.9 she will follow-up with GI Obstructiv e sleep apnea syndrome 88463868 G47.33 Follows with pulmonolog y [id number] Eliel Godoy MD [facility] [address] [place] [address] 04/25/2020 09:01:25 04/25/2020 10:44:04 Chest pain 27181207 R07.9 CT chest with heavily calcified LAD that is possibly occluded.S he is alreadly on ASA. Will start Atorvastat in.Recomme nd [facility]. Procedure explained in details to [...] . The patient agrees to proceed. Hyperlipidemia 40093850 E78.5 04/25/2020L ipid panel 03/27/2020 TC 155, TR 185, LDL 82, HDL 29Will add Atorvastat in on gemfibrozi l 600mg BIDCan not tolerate Fish oil or niacin. Hypertensive disorder 38 313790 I10 Elevated today. She will monitor at home and call office if remains elevated. May need to adjust her antihypert ensvies next visit if still elevated. Gastroesop hageal reflux disease 703947711 K21.9 04/25/2020S table on Rabeprazol eshe will follow-up with GI Obstructiv e sleep apnea syndrome 49386229 G47.33 04/25/2020C ompliant with nightly CPAPFollow s with pulmonolog y [id number] MD Ari Loza Office [address] [place] [address] 05/20/2020 16:01:46 05/20/2020 16:50:34 Hyperlipidemia 52852150 E78.5 Patient's hyperlipid emia is well-contr olled on present medical therapy. Patient was advised to eat a low-fat diet. Patient is tolerating , without difficulty , the current medication s. I have not made changes to the current regimen. Continue low cholestero l diet. Hypertensive disorder 38 773328 I10 Patient's blood pressure is well-contr olled on present medical therapy. Patient is tolerating , without difficulty , the current medication s. I have not made changes to the current regimen. Patient is advised to maintain a blood pressure diary. Patient was advised to eat a low-sodium diet (2 grams sodium or less daily). Gastroesop hageal reflux disease 424992934 K21.9 Stable on Rabeprazol , follows with GI. Obstructiv e sleep apnea syndrome 73203553 G47.33 Compliant with nightly CPAP use Coronary atherosclerosis 119875154 I25.10 [facility] 05/13/2020 showed mild nonobstruc tive CAD cont medical management and risk factor modificati onn Health Concerns Section Related Observation LastModified by Organization Detai ls LastModified Time None Recorded Concern Status LastModified by Organization Details LastModified Time None Recorded Advance Directives Directive None Recorded Payers Insurance Date Sequence Insurance Name Policy Number Policy [place] Covered Member ID [place] Member ID Guarantor Name 08/09/2020 2 FOR LIFE ( - MEDICARE SUPPLEMENT) Melodie Zamora [id number] Melodie Zamora 08/09/2020 1 [place] Melodie Zamora [id number] Melodie Zamora Notes Date Note Type Note Provider Name and Address Organization Details Recorded Time 0 text/html CC: CPHPI: 74 yt/o WF with PMH of HTN, HLD, GERD, LIBBY who was referred to our office for initial cardiovascular evaluation. Pt states that recently she experienced CP. Pt went to ER of [facility] ER and after few hours was dc home.. Pt had GERD. It was recommended to have cardiology and GI fu. She states that her CP was at rest, It was twinge, no pressure, discomfort. Located on L side of her chest, radiating to L arm. it resolved spontaneously. Never had it before. Stress test was 10 yrsago negative per pt. No previous hx of cardiac problems.. No known history of coronary artery disease. No history of previous myocardial infarction. No history of heart failure. No known valvular heart disease. No known arrhythmia. Patient reports feeling well overall. Patient is active, but is not exercising regularly. Chest pain reported. No arm pain. No neck pain. No nausea and vomiting. No diaphoresis. No shortness of breath at rest. No dyspnea on exertion. No fatigue.No orthopnea. No PND. No leg swelling. No palpitation. No dizziness. No syncope . No pre-syncope. No claudication. No major bleeding events. No side effects from medications. Complete ROS negative except as stated in the HPI and ROS. Results from this visit, or from the past: EKG (03/11/20): NSR, poor R progression, NSST changes Kenji Kauffman [facility], [place] - [facility] 03/11/2020 17:21:01 0 text/html 04/01/2020 [...] patient. No previous history of cardiac problems. No known history of coronary artery disease. No history of previous myocardial infarction. No history of heart failure. No known valvular heart disease. No known arrhythmia. Patient reports feeling well overall. Patient is active, but is not exercising regularly. No chest pain. No arm pain. No neck pain. No nausea and vomiting. No diaphoresis. No shortness of breath at rest. No dyspnea on exertion. No fatigue.No orthopnea. No PND. No leg swelling. No palpitation. No dizziness. No syncope . No pre-syncope. No claudication. No major bleeding events. No side effects from medications. Complete ROS negative except as stated in the HPI and ROS. Results from this visit, or from the [...] CXR 03/01/20:No active cardiopulmonary disease. Kenji Kauffman [place], [place] - [facility] 04/01/2020 15:28:08 0 [...] patient. No previous history of cardiac problems. No known history of coronary artery disease. No history of previous myocardial infarction. No history of heart failure. No known valvular heart disease. No known arrhythmia. Patient reports feeling well overall. Patient is active, but is not exercising regularly. No chest pain. No arm pain. No neck pain. No nausea and vomiting. No diaphoresis. No shortness of breath at rest. No dyspnea on exertion. No fatigue.No orthopnea. No PND. No leg swelling. No palpitation. No dizziness. No syncope . No pre-syncope. No claudication. No major bleeding events. No side effects from medications. Complete ROS negative except as stated in the HPI and ROS. Results from this visit, or from the past:03/19/2020 : Na 138.K 4.0,Cl 102Co2 29,BUN 19,Creati 0.70Glucose 91,Ca 9.406/02/13:WBC 3.5,RBC 4.67,HGB 13.6,HCT 40.8,PLT 166. 03/01/20:Na 139,K 3.9,Cl 104,CO2 27,GLU 120,BUN 13,Cr 0.7 .03/01/20:WBC 3.5,RBC 4.67,HGB 13.6,HCT 40.8,PLT 166. EKG (03/11/20): NSR, poor R progression, NSST [id number]/15/2020Lexi stress Test ; IMPRESSION Normal LV function [...] pulmonic regurgitation CXR 03/01/20:No active cardiopulmonary disease. Sherry Godoy [place], [place] - [facility] 04/25/2020 10:44:01 [...] patient. No previous history of cardiac problems. No known history of coronary artery disease. No history of previous myocardial infarction. No history of heart failure. No known valvular heart disease. No known arrhythmia. Patient reports feeling well overall. Patient is active, but is not exercising regularly. Chest pain reported. No arm pain. No neck pain. No nausea and vomiting. No diaphoresis. No shortness of breath at rest. No dyspnea on exertion. No fatigue.2 pillow orthopnea reported. No PND. No leg swelling. No palpitation. No dizziness. No syncope . No pre-syncope. No claudication. No major bleeding events. No side effects from medications. Complete ROS negative except as stated in the HPI and ROS. Results from this visit, or from the past:bmp (05/13/20): k 3.5,, cr 0.6,lipids (05/13/20): TG 106, TC 131, HDL 39, LDL 71,WBC (05/13/20): WBC 4.2, HGB 13.7, HCT 40.9, PLT 147 05/13/20: TG 106,TC 131,HDL 39,LDL 71.05/13/20:Na 142,k 3.5,Cl 103,Co2 28,Glu 93,Bun 16,Cr 0.6005/13/20:WBC 4.2,RBC 4.68,HGB 13.7,HCT 40.9,PLT 147. COVID-19 RNA 05/10/20:not detected. 03/19/2020 : Na 138.K 4.0,Cl 102Co2 29,BUN 19,Creati 0.70Glucose 91,Ca 9.4 03/01/20:WBC 3.5,RBC 4.67,HGB 13.6,HCT 40.8,PLT 166.03/01/20:Na 139,K 3.9,Cl 104,CO2 27,GLU 120,BUN 13,Cr 0.7 .03/01/20:WBC 3.5,RBC 4.67,HGB 13.6,HCT 40.8,PLT 166. EKG (03/11/20): NSR, poor R progression, NSST [id number]/15/2020Lexi stress Test ; IMPRESSION Normal LV function [...] regurgitation CXR 03/01/20:No active cardiopulmonary disease. Kenji manzo [place] - [facility] 05/20/2020 17:08:44 OBGyn Episode No OBEpisode recorded.
--- OUTSIDE RECORDS SUMMARY | 2025-03-13 12:18 | XMS_ITS | Clinical Summary ---
Author Organization [facility] Address [address] [place] [address] Care Team Providers Care Feed Blender Name Role Phone Benjamín Mcmahan MD Primary Care Provider [phone] Source Comments [facility],non-[facility] Affiliates and Associated Physician Practices is amultiple site organization consisting of ambulatory clinics and hospital sitesin [place], [place], [place] and [place]. This disclosure is being madepursuant to the Care Everywhere program and may not contain all information available regarding this patient. 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 Gender Identity Not on file Sexual Orientation Not on file Plan of Treatment Health Maintenance Due Date Last Done Comments BONE DENSITY TESTING 1945 MEDICARE AWV 12 MONTHS 1945 HEPATITIS C SCREENING 09/15/1964 DTAP/TDAP/TD VACCINES (1 - Tdap) 1965 PNEUMOCOCCAL VACCINE 50+ (1 of 1 - PCV) 1996 ZOSTER VACCINE (1 of 2) 1996 Respiratory Syncytial Virus (RSV) Vaccine Pt: or over 60 yrs (1 - 1-dose 75+ series) 2021 COVID-19 VACCINE (2023-2 5 season) 2024 DEPRESSION SCREENING 09/27/2024 INFLUENZA VACCINE (Season Ended) 2025 HEPATITIS B VACCINE Aged Out No longe r eligible based on patient's age to complete this topic HIB VACCINE Aged Out No longer eligi ble based on patient's age to complete this topic HPV VACCINE Aged Out No longer eligi ble based on patient's age to complete this topic MENINGOCOCCAL (Group B) VACC INE SHARED DECISION-MAKING Aged Out No longer eligibl e based on patient's age to complete this topic MENINGOCOCCAL GROUPS A/C/Y/W VACCINE Aged Out No longer eligible b ased on patient's age to complete this topic Insurance MEDICARE [facility] [employer] Address: [address] [place] [address] MEDICARE MEDICARE Care Teams Feed Blender Relationship Specialty Start Date End Date Benjamín Mcmahan MD [address] [place] [address] PCP - General 01/14/11
--- OUTSIDE RECORDS SUMMARY | 2025-03-13 12:18 | XMS_ITS | Clinical Summary ---
Author Organization [facility] Rob Chris Address [address] [place] [address] Care Team Providers Care Senior Developer Name Role Phone Tiny Gonzalez MD Primary Care Provider [phone] Allergies Active Allergy Reactions Criticality Noted Date [...] rabeprazole 20 mg tablet,delayed release Active omega 9-iqf-pml-fish oil 1,000 mg (250 mg-750 mg)/5 mL Liquid Take by mouth. Activ e Active Problems No known active problems Encounters Date Type Department Care Team Description 02/15/2025 External Device Data [facility] Provider, Abstract 02/14/2025 External Device Data [facility] Provider, Abstract 02/13/2025 External Device Data [facility] Provider, Abstract 12/18/2024 11:15 AM CDT Office Visit [facility] Oncology and Hematology [place] [address] [place] [address] Conrado López MD Chronic anemia (Primary Dx) from Last 3 Months Family History Medical [...] Sign Reading Time Taken Comments Blood Pressure 112/61 12/18/2024 11:11 AM CDT Pulse 70 12/18/2024 11:11 AM CDT Temperature 36.5 C (97.7 F) 12/18/2024 11:11 AM CDT Respiratory Rate 15 12/18/2024 11:11 AM CDT Oxygen Saturation 98% 12/18/2024 11:11 AM CDT Inhaled Oxygen Concentration - - Weight 73 kg (161 lb) 12/18/2024 11:11 AM CDT Height 165.1 cm (5' 5) 10/05/2022 1:16 PM COATER SMOKING PIPE Body Mass Index 26.79 10/05/2022 1:16 PM COATER SMOKING PIPE Plan of Treatment Upcoming Encounters Date Type Department Care Team (Late st Contact Info) Description 03/23/2025 9:15 AM CDT Office Visit [facility] Oncology and Hematology - Juan Francisco [address] [place] [address] Conrado López MD [address] [place] [address] Health Maintenance Due Date Last Done Comments ZOSTER VACCINE (2 of 3) 12/04/2013 10/09/2013 RSV VACCINE (60+ or ) (1 - 1-dose 75+ series) 2021 DTAP/TDAP/TD VACCINES (2 - T d or Tdap) 08/04/2022 08/04/2012 INFLUENZA VACCINE (#1) 2024 , 07/21/2018, 07/30/2017, Additional history exists OSTEOPOROSIS SCREENING 06/30/2027 06/30/2022, 2018 PNEUMOCOCCAL VACCINE 50+ YEARS Completed 10/11/2015 , 09/08/2012 COLORECTAL SCREENING Discontinued 07/27/2024 Colorectal Cancer Screening Discontinued FIT-DNA Q 3 years Discontinued FIT/FOBT Q 1 year Discontinued Flex Sig/CT Colonography Q 5 years Discontinued Insurance [facility] Address: [facility] [address] [place] [address] MEDICARE PART A AND B Care Teams Senior Developer Relationship Specialty Start Date End Date Tiny Gonzalez MD [address] [place] [id number] PCP - General Family Practice 10/05/22
--- OUTSIDE RECORDS SUMMARY | 2025-03-13 12:18 | XMS_ITS | Encounter Summary ---
Author Organization [facility] Facility Care Team Providers Care Efficiency Manager Name Role Phone Maya Villegas MD Primary Care Provider + [phone] Tiny Gonzalez MD Primary Care Provider [phone] Yuri Rockwell MD Unavailable [phone] Encounter Details Date Type Department Care Team (Latest Contact Info) Description 12/27/2017 Orders Only [facility]INCON[facility] ProviderEdi MD [address] [place] [address] [id number] Social History Tobacco Use Types Packs/Day Years Used Date Smoking Tobacco: Never Assessed Comments Unknown Sex and Gender Information Value Date Recorded Sex Assigned at Not on file 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
--- OUTSIDE RECORDS SUMMARY | 2025-03-13 12:18 | XMS_ITS | Data Portability ---
Author Organization [place] - [employer], Main Office Address [address] [place] [address] Care Team Providers Care Knee Bolter Name Role Phone KAI JARA Primary Care Provider [phone] KAI JARA Referring Provider Assessment Encounter Date Assessment Date Assessment LastModified by Organization Details LastModified Time 08/27/2023 08/27/2023 HPI: 77-year-old female who came in today for evaluation of her right total knee arthroplasty. This was done [address] Chicas. She has been having some symptoms of some soreness and fullness type sensation in the right knee for the last 3-4 weeks. She has had no injury or trauma. She has not been overly active that she feels. She will have a fullness sensation in the knee towards in the day. There is no real severe pain. It does feel stiff at times. Physical exam: 77-year-old female she is 5 ft 4 164 lb. She has no effusion in the right knee. No redness or warmth. Incisions well healed. Range of motion is from 0-135 degrees. She has excellent stability in both flexion and extension in the knee. Hip range of motion is full without discomfort. No swelling in either lower extremity. No tenderness about the knee. Impression: Patient is has some soreness in her total knee arthroplasty in the last several weeks. At this point her physical exam is very benign. She has no effusion in the knee and no tenderness. She has excellent range of motion and stability. Her x-rays look good as well. 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 At this point she just wanted to make sure that there was nothing wrong with her knee replacement and I assured her that I cannot find anything today. If things change or worsen she will call otherwise we will see her back as needed. 20 minutes was spent in treatment patient more than half of this in [id number] conversation [email or web address] Not available 08/27/2023 16:32:46 Plan of Treatment Reminders Order Date Submit Date Provider Last Modified By Organization Details Last Modified Time Details Appointments None record ed. Lab None record ed. Referral None record ed. Procedures None record ed. Surgeries None record ed. Imaging XR, knee 023 08/27/20 23 [email or web address] [facility] [place], [address], [place], [address], 16:46:11 Medication Orders None record ed. Patient TargetsNo targets recorded. Patient InstructionsNo instructions recorded. Reason for Referral None Reported. Results Created Date Observation Date Name Description Value Unit Range Abnormal Flag Note LastModifiedBy Organization Detail LastModifiedTime 10/16/19 22 XR, knee, 3 view No observ ation record ed. [id number] [facility] [place] [address], [place], [address], 11/25/2022 13:15:09 11/04/19 22 XR, knee, 3 view No observ ation record ed. [id number] [facility] [place] [address], [place], [address], 11/25/2022 13:15:09 09/16/20 22 XR, tibia + fibul a No observ ation record ed. [id number] [facility] [place] [address], [place], [address], 11/25/2022 13:15:09 08/27/20 23 XR, knee No observ ation record ed. [email or web address] [facility] [place] [address], [place], [address], 08/27/2023 16:30:22 Result Notes None recorded. Problems Name Problem SNOMED Code Status Onset Date Resolution Date Notes Provider Name and Address Organization Details Recorded Time History of right total knee replacemen t 4492898956657 102 Active 2021 Not Available [facility] 3 13:13:13 Contusion of right knee 6377688617405 9104 Active 2021 Not Available [facility] 3 13:13:13 History of total knee arthroplas ty 7294057223146 Active 2019 Not Available [facility] 3 13:13:13 Acquired trigger finger 1567087 Active Not Available [facility] 3 13:13:13 Osteoarthr itis of knee 852911069 Active Not Available [facility] 3 13:13:13 Pain in left lower limb 548923916 Active 2021 Not Available [facility] 3 13:13:13 Enthesopat hy of hip region 40905327 Active Not Available [facility] 3 13:13:14 Knee pain Active Not Available [facility] 3 13:13:14 Osteoarthr itis 569357558 Active Not Available [facility] 3 13:13:14 Pain of right knee joint 2619561681096 00 Active 2022 JERALD Stroud, [place] - [facility] 3 14:13:22 Problem Notes None recorded. Procedures Surgical History Date Name Laterality Status Provider Name and Address Organization Details Recorded Time 8 Hand completed Not Available [facility] 3 13:12:40 6 Knee Surgery completed Not Available [facility] 023 13:12:40 9 Back Surgery completed Not Available [facility] 023 13:12:40 Imaging Results None recorded. Procedure Notes None recorded. Medical Equipment None Reported. Allergies Allergen ID Allergen Name Allergen Category Reaction Reaction Severity Criticality Documentation Date Start Date Code Code System Note Provider Name and Address Organization Details Recorded Time 10290 Non-stero idal anti-infl ammatory agent (product) medicatio n Not available Not available Not available 11/25/2022 18702 005 SNOMED Not Available [facility] 3 13:15:04 03439 latex environme nt,medica tion Not available Not available Not available 11/25/2022 04841 91 RxNorm Not Available [facility] 3 13:15:04 37211 formaldeh yde environme nt,medica tion Not available Not available Not available 11/25/2022 4530 RxNorm Not Available [facility] 3 13:15:04 Medications Name Sig Start Date Stop Date Status Note LastModified by Organization Details LastModified Time amoxicill in 500 mg capsule TK FOUR CS PO 1 HOUR B DAPP 08/27 completed Not Available Not Available Not Available atorvasta tin 40 mg tablet active Not Available Not Available Not Available prednison e 10 mg tablet 08/29 completed Not Available Not Available Not Available rabeprazo le 20 mg tablet,de layed release TK 1 T PO BID active Not Available Not Available No t Available cetirizin e 10 mg tablet 03/26 completed Not Available Not Available Not Available atorvasta tin 10 mg tablet TK 1 T PO D active Not Available Not Available No t Available azithromy marisol 250 mg tablet TAKE 2 TABLETS BY MOUTH TODAY, THEN TAKE 1 TABLET DAILY FOR 4 DAYS 08/29 completed Not Available Not Available Not Available fluconazo le 150 mg tablet 03/26 completed Not Available Not Available Not Available hydrocodo ne 5 mg-acetam inophen 325 mg tablet 08/29 completed Not Available Not Available Not Available Anucort-H C 25 mg supposito ry UNWRAP AND INSERT 1 SUPPOSIT ORY RECTALLY EVERY DAY NEEDED 09/16 completed Not Available Not Available Not Available peg-elect rolyte solution 420 gram oral solution 08/29 completed Not Available Not Available Not Available aspirin 81 mg tablet,de layed release Take 1 tablet every day by oral route. 2020 active Not Available Not Available Not Avai lable Kenalog 10 mg/mL suspensio n for injection In office injectio n administ ered by the provider active [facility]: 0003-049 4-20 Not Available Not Available Not Available benzonata te 100 mg capsule 03/26 completed Not Available Not Available Not Available gemfibroz il 600 mg tablet active Not Available Not Available Not Available hydrocodo ne 7.5 mg-acetam inophen 325 mg tablet 08/29 completed Not Available Not Available Not Available metronida zole 0.75 % topical cream APPLY TO THE AFFECTED AREA ON FACE TWICE DAILY active Not Available Not Available No t Available SSD 1 % topical cream 08/29 completed Not Available Not Available Not Available losartan 100 mg tablet active Not Available Not Available Not Available fluticaso ne propionat e 50 mcg/actua tion nasal spray,salomón pension 03/26 completed Not Available Not Available Not Available cyclobenz aprine 5 mg tablet TAKE 1 TABLET BY MOUTH THREE TIMES DAILY NEEDED FOR MUSCLE SPASM 08/27 completed Not Available Not Available Not Available cyclospor ine 0.05 % eye drops in a dropperet te active Not Available Not Available Not Available ORTHOVISC 30 mg/2 mL intra-art icular syringe Injectio ns given in the office by the doctor 03/26 completed [facility]: [id number] 001 Not Available Not Available Not Available nitrofura ntoin monohydra te/macroc rystals 100 mg capsule TAKE 1 CAPSULE BY MOUTH EVERY 12 HOURS FOR 5 DAYS 09/16 completed Not Available Not Available Not Available Vitamin D3 2020 active Not Available Not Available Not Avai lable lidocaine (PF) 10 mg/mL (1 %) injection solution In office injectio n administ ered by the provider 06/16 completed [facility]: 0409-427 17 Not Available Not Available Not Available fluocinol one acetonide oil 0.01 % ear drops ADMINIST ER 4 DROPS INTO EACH EAR TWICE DAILY X14 DAYS active Not Available Not Available No t Available Xarelto 10 mg tablet 08/29 completed Not Available Not Available Not Available ropivacai ne (PF) 5 mg/mL (0.5 %) injection solution In office injectio n administ ered by the provider active Not Available Not Available No t Available Fluzone High-Dose (PF) 180 mcg/0.5 mL intramusc ular syringe PHARMACI ST ADMINIST ERED IMMUNIZA TION ADMINIST ERED AT TIME OF DISPENSI NG 03/26 completed Not Available Not Available Not Available ID NOW COVID-19 Test Kit TEST DIRECTED TODAY active Not Available Not Available No t Available Fluad Quad [id number] (65yr up)(PF) 60 mcg (15 mcg x 4)/0.5mL IM syringe ADM 0.5ML IM UTD active Not Available Not Available No t Available Vitals Date Recorded Body mass index (BMI) Body height Body weight Provider Name and Address Organization Details Last Updated DateTime 10/16/2021 28.3 kg/m2 165.1 cm 85381.7 g Not Available [facility] 11/25/2022 13:13:01 Date Recorded Body height Provider Name an d Address Organization Details Last Updated DateTime 11/04/2021 165.1 cm Not Available [facility] 13:13:00 Date Recorded Body height Provider Name an d Address Organization Details Last Updated DateTime 06/16/2021 165.1 cm Not Available [facility] 3 13:13:00 Date Recorded Body height Body mass index (BMI) Body weight Provider Name and Address Organization Details Last Updated DateTime 08/27/2023 162.56 cm 28.2 kg/m2 07359.15 g JERALD Stroud [place] [facility] 08/27/2023 14:15:48 Date Recorded Body mass index (BMI) Body height Body weight Provider Name and Address Organization Details Last Updated DateTime 09/16/2022 26.8 kg/m2 165.1 cm 32637.37 g Not Available [facility] 11/25/2022 13:13:01 Social History Question Answer Notes LastModified by Organizat ion Details LastModified Time Tobacco Smoking Status Never Smoker Not Available [facility] 11/25/2022 13:12:39 How Much Tobacco Do You Smoke? No [id number] Information not available 11/25/2022 Sex: Unknown Functional Status Question Answer Note LastModified by Organizat ion Details LastModified Time What is your level of alcohol consumption? None [id number] Information not available 11/25/2022 Mental Status None recorded. Family History Relationship Description Onset Age of this Age Resolved Age Notes LastModified by Organization Details LastModified Time Mother Heart disease [id number] Not available 11/25/2022 13:12:40 Mother Hypertensive disorder [id number] Not available 11/25/2022 13:12:40 Sister Family history of stroke [id number] Not available 11/25/2022 13:12:40 Father Family history of malignant neoplasm [id number] Not available 11/25/2022 13:12:40 Medical History Condition Response SKIN PROBLEMS Y ULCERS Y USE OF NSAIDS Y BLOOD CLOTS Y HYPERTENSION Y Gynecological HistoryNo gynecological history recorded. Obstetrics History GPAL:G 0 P 0 0 0 0 Past Encounters Encounter ID Performer Location Encounter Start Date Encounter Closed Date Diagnosis/Indication Diagnosis SNOMED-CT Code Diagnosis ICD10 Code Diagnosis Note [id number] Shashi Barrett MD [facility] [place] [facility] [place] [facility] [address] [place] [address] 03/26/2021 00:00:00 04/06/2021 12:21:44 [id number] Shashi Barrett MD [facility] [place] [facility] [place] [address] [place] [address] 05/09/2021 00:00:00 06/09/2021 13:21:09 [id number] Shashi Barrett MD [facility] [place] [facility] [place] [address] [place] [address] 05/14/2021 00:00:00 06/09/2021 14:28:26 [id number] Shashi Barrett MD [facility] [place] [facility] [place] [address] [place] [address] 06/16/2021 00:00:00 06/16/2021 14:21:39 [id number] Benjamín Chicas MD [facility] [place] [facility] [place] [address] [place] [address] 10/16/2021 00:00:00 10/16/2021 11:05:56 [id number] Benjamín Chicas MD [facility] [place] [facility] [place] [address] [place] [address] 11/04/2021 00:00:00 11/04/2021 14:27:59 [id number] Shashi Barrett MD [facility] [place] [address] [place] [address] 09/16/2022 00:00:00 09/16/2022 16:16:41 [id number] Shashi Barrett MD [facility] [place] [address] [place] [address] 08/27/2023 13:52:00 08/27/2023 16:46:11 Pain of right knee joint 9426448322 41951 M25.561 Health Concerns Section Related Observation LastModified by Organization Detai ls LastModified Time None Recorded Concern Status LastModified by Organization Details LastModified Time None Recorded Advance Directives Directive None Recorded Payers Insurance Date Sequence Insurance Name Policy Number Policy [place] Covered Member ID Gr[place]om Member ID Guarantor Name 08/27/2023 1 [place] Melodie Zamora [id number] Melodie Zamora 08/27/2023 2 FOR LIFE ( - MEDICARE SUPPLEMENT) Doc Zamora [id number] Melodie Zamora Notes Date Note Type Note Provider Name and Address Organization Details Recorded Time 10/16/2021 text/html KneeReported bypatient.Location :right Quality:aching; throbbing; dull Severity:moderate Duration:continuou s since onset Timing:chronic Alleviating Factors:sitting; lying down; rest; elevation Aggravating Factors:bending/sq uatting; weight bearing Associated Symptoms:no weakness; no numbness; no tingling; no redness; no ecchymosis; no catching/locking; no popping/clicking; no buckling; no instability; no radiation down leg; no drainage; no fever; no chills; no weight loss; no change in bowel/bladder habits;swelling;wa rmth;grinding Not Available [place] [facility] [email or web address] 10/16/2021 11:05:56 OBGyn Episode No OBEpisode recorded.
[2025-03-13 13:05] LABS: Anion Gap 8 mmol/L (4-12); Blood Urea Nitrogen 16 mg/dL (7-17); Calcium 9.3 mg/dL (8.4-10.2); Carbon Dioxide 28 mmol/L (22-30); Chloride 104 mmol/L (98-107); Estimated Glomerular Filt Rate > 60; Glucose 89 mg/dL (65-110); Iron 98 ug/dL (37-170); Potassium 4.2 mmol/L (3.4-5.0); Sodium 140 mmol/L (137-145)
[2025-03-13 13:14] LABS: Percent Iron Saturation 22 % (20-50)
== END 2025-03-13 11:12 | disposition home or self-care (01) ==
LOC: ANHLAB 11:12
PROVIDERS: PCP Family Medicine; Visit Provider Internal Medicine Hematology & Oncology
DX: D64.9 Anemia, unspecified (principal)
CPT/HCPCS: 36415; 80048; 82607; 82728; 82746; 83540; 83550; 85027

== ENCOUNTER 2025-04-25 07:30 | Outpatient (CLI) | payer MEDICARE, OTHER, SELFPAY ==
--- NOTE | ~2025-04-25 | XR_ITS ---
Right Knee Technique: AP, lateral, and sunrise views were obtained. Clinical History: Pain Findings: No fracture or dislocation is seen. Right knee arthroplasty in place. Stable large osteophy te or loose body posterior labrum at the medial aspect of the joint. Soft tissues are unremarkable. N o joint effusion is seen. Impression: No acute abnormality. Right knee arthroplasty in place. Stable large osteophyte or loose body at the posterior medial aspect of the knee joint. Reviewed, dictated and finalized at location M. Impression: No acute abnormality. Right knee arthroplasty in place. Stable large osteophyte or loose body at the posterior medial aspect of the kne e joint.
== END 2025-04-25 07:31 | disposition home or self-care (01) ==
PROVIDERS: PCP Family Medicine; Visit Provider Physician Assistant Surgical
DX: R52 Pain, unspecified (principal)
CPT/HCPCS: 73562

== ENCOUNTER 2025-08-13 07:55 | Outpatient (CLI) | payer MEDICARE, OTHER, SELFPAY ==
[2025-08-13 08:31] LABS: Hematocrit 38.6 % (37.0-47.0); Hemoglobin 12.6 g/dL (12.0-15.0); Immature Granulocyte Percent A 0.4 % (0-0.5); Lymphocytes Absolute Auto 1.10 K/mm3 (0.9-3.2); Mean Corpuscular HGB Conc 32.6 g/dl (32-36); Mean Corpuscular Hemoglobin 29.1 pg (26-34); Mean Corpuscular Volume 89.1 fl (80-100); Nucleated Red Blood Cells Absolute Auto 0.000 K/mm3 (0.0-0.012); Nucleated Red Blood Cells Perc 0.0 % (0.0-0.2); Platelet Count Result 133 k/mm3 (150-375); Red Blood Count 4.33 M/mm3 (4.2-5.4); White Blood Count 2.8 K/mm3 (4.5-10.0)
[2025-08-13 08:56] LABS: Alanine Aminotransferase 18 U/L (6-35); Albumin Level 4.4 g/dL (3.5-5.1); Alkaline Phosphatase 97 U/L (38-126); Anion Gap 7 mmol/L (4-12); Aspartate Amino Transferase 32 U/L (14-36); Bilirubin,Total 0.6 mg/dL (0.2-1.3); Blood Urea Nitrogen 15 mg/dL (7-17); Calcium 9.3 mg/dL (8.4-10.2); Carbon Dioxide 29 mmol/L (22-30); Chloride 103 mmol/L (98-107); Cholesterol 122 mg/dL (0-200); Estimated Glomerular Filt Rate > 60; Glucose 88 mg/dL (65-110); HDL Direct 32 mg/dL; Potassium 4.0 mmol/L (3.4-5.0); Sodium 139 mmol/L (137-145); Total Protein 7.1 g/dL (6.3-8.2); Triglycerides 154 mg/dL (<150)
== END 2025-08-13 07:56 | disposition home or self-care (01) ==
LOC: ANHLAB 07:57
PROVIDERS: PCP Student in an Organized Health Care Education/Training Program
DX: D64.9 Anemia, unspecified (principal); E78.2 Mixed hyperlipidemia
CPT/HCPCS: 36415; 80053; 80061; 85025

== ENCOUNTER 2025-09-06 08:44 | Outpatient (CLI) | payer MEDICARE, OTHER, SELFPAY ==
[2025-09-06 09:16] LABS: Hematocrit 41.3 % (37.0-47.0); Hemoglobin 13.2 g/dL (12.0-15.0); Mean Corpuscular HGB Conc 32.0 g/dl (32-36); Mean Corpuscular Hemoglobin 28.8 pg (26-34); Mean Corpuscular Volume 90.2 fl (80-100); Platelet Count Result 140 k/mm3 (150-375); Red Blood Count 4.58 M/mm3 (4.2-5.4); White Blood Count 2.9 K/mm3 (4.5-10.0)
[2025-09-06 16:28] LABS: Iron 90 ug/dL (37-170)
[2025-09-06 16:39] LABS: Percent Iron Saturation 21 % (20-50)
[2025-09-06 17:09] LABS: Ferritin 28.20 ng/mL (11.1-264)
[2025-09-06 17:28] LABS: Vitamin B12 704.0 pg/mL (239-931)
== END 2025-09-06 08:45 | disposition home or self-care (01) ==
LOC: ANHLAB 08:46
PROVIDERS: PCP Student in an Organized Health Care Education/Training Program; Visit Provider Internal Medicine Hematology & Oncology
DX: D64.9 Anemia, unspecified (principal)
CPT/HCPCS: 36415; 82607; 82728; 82746; 83540; 83550; 85027